=== PATIENT | female | born 1965 | race Caucasian/White ===

== ENCOUNTER 2023-06-12 16:14 | Outpatient (OUT) | payer OTHER, SELFPAY ==
[2023-06-14 04:07] LABS: FSH 54.4 mIU/mL (.); Luteinizing Hormone(LH) 32.4 mIU/mL (.)
== END 2023-06-12 16:15 | disposition home or self-care (01) ==
PROVIDERS: PCP Family Medicine
DX: N95.1 Menopausal and female climacteric states (principal)
CPT/HCPCS: 36415; 83001; 83002

== ENCOUNTER 2024-03-12 07:10 | Outpatient (OUT) | payer OTHER, SELFPAY ==
--- OUTSIDE RECORDS SUMMARY | 2024-03-12 07:15 | XMS_ITS | CCD ---
Author Organization [facility] Care Team Providers Care Cryogenics Engineer Name Role Phone MD Arsenio Baxter Primary Care Provider KIARA De Los Santos Attending Provider MD Chu Wallis Attending Provider [phone] MD Arsenio Baxter Primary Care Provider MD Chu Wallis Attending Provider Chu Wallis Admitting Unavailable Bimal, Chu Attending Unavailable Arsenio Baxter Primary Care Unavailable Surfield, Chu Admitting Unavailable Surfield, Chu Attending Unavailable Arsenio Baxter Primary Care Unavailable Surfield, Chu Admitting Unavailable Surfield, Chu Attending Unavailable Arsenio Baxter Primary Care Unavailable Surfield, Chu Attending Unavailable Arsenio Baxter Primary Care Unavailable Surfield, Chu Admitting Unavailable Surfield, Chu Attending Unavailable Arsenio Baxter Primary Care Unavailable Surfield, Chu Admitting Unavailable Surfield, Chu Admitting Unavailable Surfnatali, Chu Attending Unavailable Arsenio Baxter Primary Care Unavailable Arsenio Baxter Unavailable Unavailable Unavailable DR SHANKAR OBRIEN Admitting Unavailable MICAH, DR CHAPARRO Attending Unavailable HEMEYER ., DR RON Primary Care Unavailable MARY, DR DAVID Jolley Consulting Unavailable KRISTYN MARTÍNEZ Consulting Unavailable HEMEYER ., DR RON Admitting Unavailable HEMEYER ., DR RON Attending Unavailable HEMEYER ., DR RON Primary Care Unavailable HEMEYER ., DR RON Consulting Unavailable FOWLER, DR CARIDAD Stanford Admitting Unavailable FOWLER, DR CARIDAD Stanford Attending Unavailable HEMEYER ., DR RON Primary Care Unavailable FOWLER, DR CARIDAD Stanford Consulting Unavailable Fowler, Dr. Caridad Díaz Attending Leonela vailable Hemeyer, Dr. Arsenio Corea Primary Care Unava ilable Fowler, Dr. Caridad Díaz Attending Leonela vailable Hemeyer, Dr. Arsenio Corea Primary Care Unava ilable Hemeyer, Dr. Arsenio Corea Primary Care Unava ilable Fowler, Dr. Caridad Díaz Attending Leonela vailable Fowler, Dr. Caridad Díaz Referring Leonela vailable Hemeyer, Dr. Arsenio Corea Primary Care Unava ilable Fowler, Dr. Caridad Díaz Attending Leonela vailable Fowler, Dr. Caridad Díaz Referring Leonela vailable Micah, Shankar Rodriguez Attending Unavailable Micah, Shankar Rodriguez Admitting Unavailable HEMEYER, ARSENIO Tian Attending Unavailable LACONISELISE Attending Unavailable PETITTIMONIKA Attending Unavailable SarminiAurelia Attending Unavaila ble Sarmini, Aurelia Gonzales Admitting Unavaila ble Sarmini, Aurelia Gonzales Attending Unavaila ble Sarmini, Aurelia Gonzales Referring Unavaila ble Sarmini, Aurelia Gonzales Attending Unavaila ble Allergies Allergy Classification Reported Allergen(s) Allergy Type Date of Onset Reaction(s) Facility (4 sources) Sulfonamides (Antibiotic); Translations: [Sulfa (Sulfonamide Antibiotics)] Propensity to adverse reactions 2 Itching [facility] (5 sources) Sulfonamides (Antibiotic); Translations: [Sulfa Drugs] Allergy to drug (finding) [facility] Repository Medications Current Medications Medication Drug Class(es) Dates Sig (Normalized) Sig (Original) acetaminophen 325 mg / HYDROcodone bitartrate 5 mg oral tablet (4 sources) Opioid Agonist Start: 06-28-2022 take 1 tablet by mouth every six hours Hydrocodone-Aceta minophen Active 1 TAB PO Q6H 30 7 June 28, 2022 Start: 09-28-2021 End: 06-13-2022 take 1 tablet by mouth every six hours Hydrocodone-Acetaminophen Discontinued 1 TAB PO Q6H 40 7 September 28, 2021 June 13, 2022 9:52am DULoxetine 20 mg delayed release oral capsule (6 sources) Serotonin and Norepinephrine Reuptake Inhibitor Start: 02-08-2021 take 1 capsule by mouth once daily in the morning Duloxetine (Cymbalta) 20 mg capsule,delayed release(DR/EC) Active 20 MG PO Every morning February 07, 2021 11:00pm hydrOXYzine hydrochloride 25 mg oral tablet (1 source) Antihistamine Start: 06-28-2022 take 25 mg by mouth once daily Hydroxyzine Hcl Active 25 MG PO Daily June 28, 2022 12:00am Multivitamin preparation (3 sources) Start: 02-08-2021 take 1 tablet by mouth once daily before dinner Multivitamin Active 1 TAB PO once daily before dinner February 08, 2021 10:52am Start: 02-08-2021 take 1 tablet by evan th once daily before dinner Multivitamin Active 1 TAB PO once daily before dinner February 07, 2021 11:00pm Completed/Discontinued Medications Medication Drug Class(es) Dates Sig (Normalized) Sig (Original) medroxyPROGESTERone acetate 5 mg oral tablet (3 sources) Progestin Start: 1 End: 2 take 5 mg by mouth once daily in the morning Medroxyprogesterone Discontinued 5 MG PO Every morning February 07, 2021 11:00pm September 13, 2021 11:45am Norethindrone-Eth Estradiol 1-5 MG-MCG Oral Tablet (1 source) Start: 3 take 1 tablet by mouth once daily Norethindrone-Eth Estradiol 1-5 MG-MCG Oral Tablet TAKE 1 TABLET DAILY. Quantity: 0 Refills: 0 Ordered: 06-Feb-2023 DO Start : 06-Feb-2023 Active valsartan 160 mg oral tablet (3 sources) Angiotensin 2 Receptor Cassidy Start: 3 take 1 tablet by mouth once daily Valsartan 160 MG Oral Tablet TAKE 1 TABLET BY MOUTH EVERY DAY Quantity: 90 Refills: 3 Ordered: 04-Oct-2022 Caridad Fowler MD Start : 04-Oct-2022 Active new start Problems Active Problems Problem Classification Problem Date Documented Date Episodic/Chronic Abdominal pain (4 sources) Pelvic and perineal pain; Translations: [PELVIC AND PERINEAL PAIN] Onset: 10-14-2022 Episodic Cardiac dysrhythmias (4 sources) Palpitations; Translations: [Palpitations] Onset: 10-14-2022 Episodic Essential hypertension (4 sources) Essential hypertension; Translations: [Unspecified essential hypertension] Onset: 10-14-2022 Chronic Heart valve disorders (3 sources) Heart murmur; Translations: [Undiagnosed cardiac murmurs] Onset: 11-29-2022 Episodic Mood disorders (3 sources) Depressive disorder; Translations: [Depressive disorder, not elsewhere classified] Chronic Nutritional deficiencies (4 sources) Vitamin D deficiency; Translations: [Unspecified vitamin D deficiency] Onset: 10-14-2022 Chronic Other lower respiratory disease (3 sources) Dyspnea; Translations: [Other respiratory abnormalities] Episodic Other lower respiratory disease (5 sources) Dyspnea, unspecified; Translations: [DYSPNEA UNSPECIFIED] Onset: 10-07-2022 Episodic Other nutritional; endocrine; and metabolic disorders (3 sources) Overweight in adulthood with body mass index of 25 or more but less than 30; Translations: [Overweight] Episodic Residual codes; unclassified (3 sources) History of thoracic surgery; Translations: [Other specified postprocedural states] 09-28-2021 Episodic Residual codes; unclassified (1 source) Encounter for cosmetic surgery; Translations: [Encounter for cosmetic surgery] Onset: 06-28-2022 Episodic Residual codes; unclassified (1 source) Other specified postprocedural states; Translations: [Other specified postprocedural states] Onset: 06-28-2022 Episodic Unclassified (1 source) Encounter for preprocedural laboratory examination; Translations: [Encounter for preprocedural laboratory examination] Onset: 06-24-2022 Unclassified (1 source) Encounter for preprocedural cardiovascular examination; Translations: [Encounter for preprocedural cardiovascular examination] Onset: 06-13-2022 Unclassified (1 source) Z41.1 - Encounter for cosmetic surgery; Translations: [Z41.1 - Encounter for cosmetic surgery] Onset: 09-28-2021 Unclassified (1 source) Z01.812 - Encounter for preprocedural laboratory examination; Translations: [Z01.812 - Encounter for preprocedural laboratory examination] Onset: 09-24-2021 Unclassified (1 source) Z01.810 - Encounter for preprocedural cardiovascular examination; Translations: [Z01.810 - Encounter for preprocedural cardiovascular examination] Onset: 09-13-2021 Unclassified (3 sources) CONTACT W/AND (SUSP) EXPOS COVID-19; Translations: [CONTACT W/AND (SUSP) EXPOS COVID-19] Onset: 03-29-2022 Unclassified (1 source) COUGH, UNSPECIFIED; Translations: [COUGH, UNSPECIFIED] Onset: 03-29-2022 Past or Other Problems Problem Classification Problem Date Documented Da te Episodic/Chronic Fever of unknown origin (1 source) Fever, unspecified; Translations: [FEVER UNSPECIFIED] Onset: 03-29-2022 Episodic Other circulatory disease (1 source) History of clinical finding in subject; Translations: [Personal history of other diseases of circulatory system] Resolved: 02-06-2023 Episodic Other lower respiratory disease (1 source) Other specified respiratory disorders; Translations: [OTHER SPEC RESPIRATORY DISORDERS] Onset: 03-29-2022 Episodic Other screening for suspected conditions (not mental disorders or infectious disease) (4 sources) Patient encounter status; Translations: [Screening for lipoid disorders] Onset: 10-14-2022 Resolved: 02-06-2023 Episodic Residual codes; unclassified (3 sources) Edema of lower extremity; Translations: [Edema] Resolved: 02-06-2023 Episodic Unclassified (3 sources) Never smoked tobacco; Translations: [Never a smoker] Unclassified (1 source) CONTACT W/AND (SUSP) EXPOS COVID-19; Translations: [CONTACT W/AND (SUSP) EXPOS COVID-19] Onset: 03-28-2022 Results Test Name Value Interpretation Reference Range Facility Ambulatory Visit Summaryon 0 02-21-2024 Ambulatory Visit Summary Ambulatory Visit Summary ANUSHKA PERDOMO :1965 Visit Date:02/21/2024 Ambulatory Visit Instructions Your Diagnosis LLQ pain Blood in stool Your Care Team Attending Physician - Bon SANDRA, Aurelia Gonzales Primary Care Physician - SAHIL SANDRA, ARSENIO Tian This Is Your Medications List peppermint oil (Ibgard 90 mg oral delayed release capsule) Contact prescribing physician if questions or concerns fluoxetine minocycline valsartan (valsartan 160 mg Tab) Procedures Performed section, Colonoscopy. Discharge Vitals Heart Rate (Peripheral) 60 Blood Pressure 117/64 Height 167 cm Height 66 in Weight 73.6 kg Weight 161.92 lb BMI 26.39 Medications What How Much When Instructions New peppermint oil (Ibgard 90 mg oral delayed release capsule) 2 Capsules By Mouth 2 times a day Refills: 3 Pickup at [facility] Unchanged fluoxetine 20 Milligram By Mouth Every day Contact prescribing physician if questions or concerns Unchanged minocycline 50 Milligram By Mouth Every day as needed for Other (see comment) Contact prescribing physician if questions or concerns Unchanged valsartan (valsartan 160 mg Tab) Contact prescribing physician if questions or concerns Pharmacy Information [facility]: [address], [place] [phone] Allergies sulfa drugs (Unknown) Problems Ongoing - Any problem that you are currently receiving treatment for. Blood in stool Depressive disorder Dyspnea Essential hypertension Heart murmur LLQ pain Vitamin D deficiency Historical - Any problem that you are no longer receiving treatment for. Edema of lower extremity Patient Survey You may receive a survey via text or e-mail asking about your office visit. Please share your experience with us by completing your survey. We appreciate your feedback and thank you for choosing us for your care. Normal [facility] Gastroenterology Office/Clin ic Noteon 02-21-2024 Gastroenterology Office/Clinic Note Gastroenterology Office/Clinic Note Chief Complaint LLQ pain and positive heme stool. HPI Staff Patient is a 58 year old female who was referred by Micah for LLQ pain and positive Hemoccult stool. Having LLQ discomfort, bloating and some BRBPR d/t possible hemorrhoids. UA showed 2+ leukoesterase - was given Cipro 500mg BID. Last visit 07/20/17 w/Dr. Orellana - he recommended a 10 year colonoscopy f/u. Denies Fhx colon cancer. Denies blood thinners. Denies GLP-1 agonists. US pelvis 10/14/22: IMPRESSION: 1. Small leiomyomas suspected within uterine myometrium; no suspicious findings. 2. Left ovarian cyst versus hypoechoic mass; a cyst is favored. Consider follow-up imaging in 6 weeks to document resolution. Colonoscopy 07/06/17: Diagnosis: Internal hemorrhoids and a diminutive sigmoid polyp status post removal with the T-Systemo biopsy forceps. Recommendations: Repeat colonoscopy:: In 3 years, Pending pathology results. Pathology: Final Diagnosis (Verified) POLYP, SIGMOID COLON, POLYPECTOMY: HYPERPLASTIC POLYP. History of Present Illness intermittent blood in stool for several months LLQ discomfort resolved, occasional cramps normal BM Review of Systems PHQ Score Initial Depression Screen Score: 0 SCORE Physical Exam Vitals & Measurements HR: 60(Peripheral) BP: 117/64 HT: 66 in HT: 167 cm WT: 73.6 kg WT: 161.92 lb BMI: 26.39 Assessment/Plan 1. LLQ pain (R10.32: Left lower quadrant pain) discomfort, cramping intermittent no specific triggers had pelvic US Suggested peppermint oils/IBgard and kiwi Pain is mild intermittent and does not last long If pain persist or worsens will consider further evaluation including CT and further treatment like Bentyl 2. Blood in stool (K92.1: Melena) will get colonoscopy Likely hemorrhoids related but we need to rule out other etiologies Follow-up No qualifying data available Problem List/Past Medical History Ongoing Blood in stool Depressive disorder Dyspnea Essential hypertension Heart murmur LLQ pain Vitamin D deficiency Historical Edema of lower extremity Procedure/Surgical History section, Colonoscopy. Medications fluoxetine, 20 mg, Oral, Daily minocycline, 50 mg, Oral, Daily, PRN valsartan 160 mg Tab Allergies sulfa drugs (Unknown) Social History Tobacco Never (less than 100 in lifetime) Tobacco Use:. Never Smokeless Tobacco Use:., 02/21/2024 Family History Heart disease: Father. Hyperlipidemia: Mother. Immunizations Vaccine Date Status Comments zoster vaccine, inactivated 08/18/2023 Recorded zoster vaccine, inactivated 05/08/2023 Recorded SARSCoV2 mRNA(adriel-bari- sucros) vac 02/21/2022 Recorded 2024-02-20: TPV50 SARS-CoV-2 (COVID-19) mRNA BNT-162b2 vax 05/21/2021 Recorded 2024-02-20: TPV23 SARS-CoV-2 (COVID-19) mRNA BNT-162b2 vax 09/11/2020 Recorded SARS-CoV-2 (COVID-19) mRNA BNT-162b2 vax 08/21/2020 Recorded diphtheria/pertussis , acel/tetanus adult 04/20/2017 Recorded diphtheria/pertussis , acel/tetanus adult 11/25/2014 Recorded measles/mumps/rubell a virus vaccine 11/25/2014 Recorded Normal [facility] Comment on above: Result Comment: Elec tronically Signed By: Bon SANDRA, Aurelia Gonzales\.ana\Date and Time Signed: 02/21/24 08:34 EDT C Urineon 01-20-2024 Bacteria identified Cx Nom (U) Microbiology PROCEDURE: Urine Culture [R1] SOURCE: U CleanCatch BODY SITE: COLLECTED DATE/TIME: 01/17/2024 12:00 EDT RECEIVED DATE/TIME: 01/18/2024 18:21 EDT START DATE/TIME: 01/18/2024 18:21 EDT FREE TEXT SOURCE: Micah SANDRA, Shankar Obrien MD, Shankar Rodriguez FINAL REPORTS Final Report [] Verified Date/Time: 01/20/2024 09:48 EDT 1,000 cfu/ml Mixed skin contaminants Performing Locations R1: This test was performed at: [facility], [address] [place] [address], [id number] , , Normal [facility] Comment on above: Performed By: #### [id number] #### [facility] [address] [place] [id number] Office Visit (Cardiology)on 02-06-2023 Follow-up visit Diagnoses/Problems Assessed Primary hypertension (401.9) (I10) Overweight with body mass index (BMI) of 25 to 25.9 in adult (278.02,V85.21) (E66.3,Z68.25) Never a smoker Dyspnea (786.09) (R06.00) Orders Overweight with body mass index (BMI) of 25 to 25.9 in adult Healthy Weight Tips; Status:Complete - Retrospective Authorization; Done: [id number] Some eating tips that can help you lose weight.; Status:Complete - Retrospective Authorization; Done: [id number] SocHx: Never a smoker Tobacco Use Screening; Status:Complete; Done: [id number] Patient Instructions Please bring all medicines, vitamins, and herbal supplements with you when you come to the office. Prescriptions will not be filled unless you are compliant with your follow up appointments or have a follow up appointment scheduled as per instruction of your physician. Refills should be requested at the time of your visit. Follow up in 1 year. Same meds Chief Complaint ANUSHKA PERDOMO is being seen for stress echo results. Patient is in the office for follow-up after the initial visit we had several months ago. She had an echocardiogram and treadmill stress test which came back normal. Since she was started on valsartan for hypertension she feels great and all her symptoms have simply gone and she has presently no complaint to report. Her physical examination was normal. Slight overweight is noted. The findings of the echocardiogram and stress test were reviewed with the patient. She presently will keep taken valsartan as raised and follow-up with me in the office in annual basis. Assessment/recommend ations: 1?history of nonspecific fatigue and dyspnea with normal cardiac work-up based on noninvasive testing all of which have resolved since the patient was started on valsartan for hypertension which has been well-tolerated with excellent results. 2?hypertension, currently in excellent control on valsartan which has been well-tolerated 3?history of depression and anxiety on Cymbalta followed by PCP. 4?minimal overweight, the patient wishes to lose more weight with diet and exercise and target a weight 150 pounds. Surgical History Problems History of section Past Medical History Problems History of Fluid retention in legs (782.3) (R60.0) History of cardiac murmur (V12.59) (Z86.79) Resolved Date: 06 Feb 2023 History of Lipid screening (V77.91) (Z13.220) Current Meds Medication NameInstruction DULoxetine HCl - 20 MG Oral Capsule Delayed Release ParticlesTAKE 1 CAPSULE Daily Norethindrone-Eth Estradiol 1-5 MG-MCG Oral TabletTAKE 1 TABLET DAILY. Valsartan 160 MG Oral TabletTAKE 1 TABLET BY MOUTH EVERY DAY Patient did not bring medication list or bottles. Updated verbally with patient Allergies Medication Sulfa Drugs Recorded By: Servando Wagoner; 10/04/2022 9:28:32 AM Social History Problems Caffeine use (V49.89) (Z78.9) Never a smoker No illicit drug use Social alcohol use (V49.89) (Z78.9) Review of Systems Constitutional: not feeling tired. Cardiovascular: no intermittent leg claudication and as noted in HPI. Respiratory: no cough and no shortness of breath. Gastrointestinal: no change in bowel habits and no blood in stools. Integumentary: no skin rashes. Neurological: no seizures and no frequent falls. All other systems have been reviewed and are negative for complaint. Vitals Vital Signs Recorded: [id number] 01:13PM Heart Rate84, L Radial [id number], LUE, Sitting Kqozntjbe85, LUE, Sitting Height5 ft 6 in Dprzrj558 lb BMI Cribpqdshp62.99 kg/m2 BSA Calculated1.82 Tobacco Useb) No Falls Screening (Age 18+)a) No falls within the last year Physical Exam Constitutional: alert and in no acute distress. Neck: neck is supple, symmetric, trachea midline, no masses and no thyromegaly . Pulmonary: no increased work of breathing or signs of respiratory distress and lungs clear to auscultation. Cardiovascular: carotid pulses 2+ bilaterally with no bruit , JVP was normal, no thrills , regular rhythm, normal S1 and S2, no murmurs , pedal pulses 2+ bilaterally and no edema . Abdomen: abdomen non-tender, no masses and no hepatomegaly . Skin: skin warm and dry, normal skin turgor . Psychiatric judgment and insight is normal and oriented to person, place and time . Signatures Electronically signed by : Caridad Fowler MD; Feb 06 2023 2:15PM EST (Author) Normal [facility] Tobacco Screening.on 023 Fall risk assessment a) No falls within the last year [facility] 250 DO Work Phone: Tobacco use status [facility] b) No [facility] 250 DO Work Phone: Echocardiogramon 11-29-[address], [address] [place] [address] TRANSTHORACIC ECHOCARDIOGRAM REPORT Patient Name: ANUSHKA Jones Physician: [id number] Caridad Fowler MD, [facility] Study Date: 11/29/2022 Referring CARIDAD FOWLER Physician: MRN/PID: [id number] PCP: Arsenio Baxter Accession/Order#: [id number] Department [facility] Location: Date of : 1965 Fellow: Gender: F Nurse: Admit Date: Ed Transporter: Patricia Delgado RDCS, RVT Height: 167.64 cm CC Report to: Weight: 73.03 kg Study Type: Echocardiogram BSA: 1.82 m2 Blood Pressure: 132 /84 mmHg Diagnosis/ICD: R06.00-Dyspnea, unspecified; R01.1-Cardiac murmur, unspecified Indication: Edema, HTN, Palpitations, Overweight Procedure/CPT: Echo Complete w Full [id number] Study Detail: The following Echo studies were performed: 2D, M-Mode, Doppler and color flow. PHYSICIAN INTERPRETATION: Left Ventricle: Left ventricular systolic function is normal, with an estimated ejection fraction of 60-65%. There are no regional wall motion abnormalities. The left ventricular cavity size is normal. Spectral Doppler shows a normal pattern of left ventricular diastolic filling. Left Atrium: The left atrium is normal in size. Right Ventricle: The right ventricle is normal in size. There is normal right ventricular global systolic function. Right Atrium: The right atrium is normal in size. Aortic Valve: The aortic valve is trileaflet. There is no evidence of aortic valve regurgitation. The peak instantaneous gradient of the aortic valve is 12.2 mmHg. The mean gradient of the aortic valve is 7.0 mmHg. Mitral Valve: The mitral valve is mildly thickened. There is trace mitral valve regurgitation. Tricuspid Valve: The tricuspid valve is structurally normal. There is trace tricuspid regurgitation. Pulmonic Valve: The pulmonic valve is structurally normal. There is no indication of pulmonic valve regurgitation. Pericardium: There is no pericardial effusion noted. Aorta: The aortic root is normal. Systemic Veins: The inferior vena cava appears to be of normal size. In comparison to the previous echocardiogram(s): No previous studies are available for comparison. CONCLUSIONS: 1. Left ventricular systolic function is normal with a 60-65% estimated ejection fraction. 2. No previous studies are available for comparison. QUANTITATIVE DATA SUMMARY: 2D MEASUREMENTS: Normal Ranges: Ao Root d: 3.30 cm (2.0-3.7cm) LAs: 3.90 cm (2.7-4.0cm) RVIDd: 2.60 cm (0.9-3.6cm) IVSd: 0.90 cm (0.6-1.1cm) LVPWd: 0.90 cm (0.6-1.1cm) LVIDd: 4.80 cm (3.9-5.9cm) LVIDs: 3.50 cm LV Mass Index: 81.0 g/m2 LV % FS 27.1 % LV SYSTOLIC FUNCTION BY 2D PLANIMETRY (MOD): Normal Ranges: EF-A4C View: 63.5 % (>=55%) LV DIASTOLIC FUNCTION: Normal Ranges: MV Peak E: 0.98 m/s (0.7-1.2 m/s) MV Peak A: 0.84 m/s (0.42-0.7 m/s) E/A Ratio: 1.17 (1.0-2.2) MV lateral e' 0.11 m/s MV medial e' 0.08 m/s E/e' Ratio: 8.90 (<8.0) MITRAL VALVE: Normal Ranges: MV Vmax: 1.10 m/s (<=1.3m/s) MV peak P.8 mmHg (<5mmHg) MV mean P.0 mmHg (<48mmHg) MITRAL INSUFFICIENCY: Normal Ranges: MR Vmax: 404.00 cm/s dP/dt: 1298 mmHg/s (>1200mmHg/sec) AORTIC VALVE: Normal Ranges: AoV Vmax: 1.75 m/s (<=1.7m/s) AoV Peak P.2 mmHg (<20mmHg) AoV Mean P.0 mmHg (1.7-11.5mmHg) LVOT Max Ej: 0.82 m/s (<=1.1m/s) AoV VTI: 41.20 cm (18-25cm) LVOT VTI: 18.50 cm LVOT Diameter: 1.80 cm (1.8-2.4cm) AoV Area, VTI: 1.14 cm2 (2.5-5.5cm2) AoV Area,Vmax: 1.19 cm2 (2.5-4.5cm2) AoV Dimensionless Index: 0.45 TRICUSPID VALVE/RVSP: Normal Ranges: Peak TR Velocity: 2.65 m/s RV Syst Pressure: 31.1 mmHg (< 30mmHg) PULMONIC VALVE: Normal Ranges: PV Max Je: 1.1 m/s (0.6-0.9m/s) PV Max P.8 mmHg [id number] Caridad Fowler MD, [facility] Electronically signed on 12/01/2022 at 9:15:41 AM Final Normal [facility] Cardiac Stress Teston 2022 Cardiac Stress Test [address], [address], [place] [address] Exercise Stress Test Patient Name: ANUSHKA Ordering Physician: [id number] Caridad Fowler MD [facility] Study Date: 10/28/2022 Reading Physician: Pauline Fowler MD, [facility] MRN/PID: [id number] Supervising [id number] Goldie Waldron Physician: Accession/Order#: [id number] Referring Physician: CARIDAD FOWLER Date of : 1965 PCP: Gender: F Fellow: Height: 167.64 cm Nurse: Mayra Arechiga RN Weight: 73.03 kg Ed Transporter: N/A BSA: 1.82 m2 Technologist: BMI: 25.99 kg/m2 Additional Staff: Age: 57 years cc report to: Patient Location: cc report to: [id number] Caridad Fowler MD, [facility] Study Type: Cardiac Stress Test Diagnosis/ICD: R01.1-Cardiac murmur, unspecified; R06.00-Dyspnea, unspecified Indication: Heart Murmur and Dyspnea Procedure/CPT: Stress Test Supervision-[id number] Falls Risk: Low: Patient has low risk for sustaining a fall; environmental safety interventions in place. Study Details: Correct procedure and correct patient verified verbally. Patient Performance: The patient exercised to stage on a Severino protocol for 7 minutes and 15 seconds, achieving 8.9 METS. The peak heart rate achieved was 142 bpm, which was 87 % of the age predicted target heart rate of 163 bpm. The resting blood pressure was 110/64 mmHg with a heart rate of 64 bpm. The standing blood pressure was 100/60 mmHg with a heart rate of 65 bpm. The patient developed dyspnea during the stress exam. The blood pressure response was normal. The test was terminated due to: dyspnea. Double Product (HR x BP): 227. Baseline ECG: Resting ECG showed normal sinus rhythm. Stress Stage Data: + +- --+------+-------+ HR Sys BP Avery BP + +- --+------+-------+ Baseline Resting 64 110 64 + +- --+------+-------+ Baseline Standing 65 100 60 + +- --+------+-------+ Stage I 111 120 64 + +- --+------+-------+ Stage II 120 140 60 + +- --+------+-------+ Stage III 144 160 80 + +- --+------+-------+ + +---+-- ----+-------+ HR Sys BP Avery BP + +---+-- ----+-------+ Recovery I 138 120 60 + +---+-- ----+-------+ Recovery II 130 156 64 + +---+-- ----+-------+ Recovery III 88 160 70 + +---+-- ----+-------+ Recovery IV 80 130 74 + +---+-- ----+-------+ Summary: 1. 1_normal graded exercise tolerance test after completing 7 minutes and 15 seconds on a Severino protocol and achieving 87% of predicted maximal heart rate and workload of 8.9 METS. 2_no chest pain, ischemic EKG changes or cardiac arrhythmias induced by exercise 3_good exercise tolerance for age with appropriate hemodynamic response to exercise and normal heart rate recovery and achievement of Foote treadmill score of 7+ which is favorable. [id number] Caridad Fowler MD, [facility] Electronically signed on 10/31/2022 at 6:20:56 PM Final Normal [facility] Cardiac Stress Test MP-No rth [place] 250 DO Work Phone: FSHon 10-15-2022 FSH 51.4 mIU/mL Normal [facility] Comment on above: Result Comment: Adul t Female: Follicular phase 3.5 - 12.5 Ovulation phase 4.7 - 21.5 Luteal phase 1.7 - 7.7 Postmenopausal 25.8 - 134.8 Performed By: #### L [facility] #### [facility] [address] [place] [address] Dr. Jordan Gan LUTEINIZING HORMONE (LH)on 0 10-15-2022 LH 23.4 mIU/mL Normal [facility] Comment on above: Result Comment: Adul t Female: Follicular phase 2.4 - 12.6 Ovulation phase 14.0 - 95.6 Luteal phase 1.0 - 11.4 Postmenopausal 7.7 - 58.5 Performed By: #### L [facility] #### [facility] [address] [place] [address] Dr. Jordan Gan US PELVIS AND TRANSVAGon US PELVIS AND TRANSVAG EXAMINATION: US PELVIS AND TRANSVAG HISTORY: Pelvic and perineal pain COMPARISON: No relevant comparison available. TECHNIQUE: Transabdominal and transvaginal sonographic examination. FINDINGS: UTERUS: 2 hypoechoic areas within myometrium, 2.5 cm and 1.7 cm in diameter; both favoring leiomyomas. Uterus size: 8.8 x 5.8 x 4.2 cm ENDOMETRIUM: Normal homogeneous appearance. Endometrial thickness: 5 mm RIGHT OVARY: Normal size and appearance. Duplex Doppler demonstrates normal waveform and flow; resistive index 0.5. Ovary size: 2.9 x 2.4 x 2.5 cm LEFT OVARY: 2.0 cm hypoechoic areas suspected to represent a cyst. Blood flow present within ovary on color Doppler. Ovary size: 3.4 x 2.6 x 1.5 cm CUL-DE-SAC: Unremarkable. No significant free fluid. BLADDER: Unremarkable. OTHER: None. IMPRESSION: 1. Small leiomyomas suspected within uterine myometrium; no suspicious findings. 2. Left ovarian cyst versus hypoechoic mass; a cyst is favored. Consider follow-up imaging in 6 weeks to document resolution. Electronically authenticated by: DAVID HERNANDEZ Date: 2022-10-14 11:55 Normal [facility] CBC AUTO DIFFon 10-07-2022 BASO # 0.1 103/ul Normal 0.0-0.1 [facility] Comment on above: Performed By: #### C BC #### [facility] [address] [address] [address] Jordan Gan Basophils/100 WBC (Bld) 0.7 % Normal 0.2-2.0 [facility] Comment on above: Performed By: #### C BC #### [facility] [address] [address] [address] Jordan Gan EO # 0.2 103/ul Normal 0.0-0.7 [facility] Comment on above: Performed By: #### C BC #### [facility] [address] [address] [address] Jordan Gan Eosinophils/100 WBC (Bld) 2.9 % Normal 0.9-7.0 [facility] Comment on above: Performed By: #### C BC #### [facility] [address] [address] [address] Jordan Gan Erythrocyte distribution width (RBC) [Ratio] 13.2 % Normal 11.0-15.0 [facility] Comment on above: Performed By: #### C BC #### [facility] [address] [address] [address] Jordan Gan Hematocrit (Bld) [Volume fraction] 41.1 % Normal 36.0-48.0 [facility] Comment on above: Performed By: #### C BC #### [facility] [address] [address] [address] Jordan Gan Hemoglobin (Bld) [Mass/Vol] 13.7 g/dL Normal 12.0-16.0 [facility] Comment on above: Performed By: #### C BC #### [facility] [address] [address] [address] Jordan Gan IG # 0.01 10e3/ul Normal 0.00-0.03 [facility] Comment on above: Performed By: #### C BC #### [facility] [address] [place] [address] Dr. Jordan Gan IG % 0.1 % Normal 0.0-0.5 [facility] Comment on above: Performed By: #### C BC #### [facility] [address] [place] [address] Dr. Jordan Gan LYMPH # 1.9 103/ul Normal 1.2-3.8 [facility] Comment on above: Performed By: #### C BC #### [facility] [address] [place] [address] Dr. Jordan Gan Lymphocytes/100 WBC (Bld) 27.6 % Normal 20.5-60.0 [facility] Comment on above: Performed By: #### C BC #### [facility] [address] [place] [address] Dr. Jordan Gan MANUAL DIFF REQ NO Normal [facility] Comment on above: Performed By: #### C BC #### [facility] [address] [place] [address] Dr. Jordan Gan MCH (RBC) [Entitic mass] 29.8 pg Normal 26.7-34.0 [facility] Comment on above: Performed By: #### C BC #### [facility] [address] [place] [address] Dr. Jordan Gan MCHC (RBC) [Mass/Vol] 33.3 g/dL Normal 29.9-35.2 [facility] Comment on above: Performed By: #### C BC #### [facility] [address] [address] [address] Jordan Gan MCV (RBC) [Entitic vol] 89.5 fL Normal 81.0-99.0 [facility] Comment on above: Performed By: #### C BC #### [facility] [address] [address] [address] Jordan Gan MONO # 0.5 103/ul Normal 0.3-0.8 [facility] Comment on above: Performed By: #### C BC #### [facility] [address] [address] [address] Jordan Gan Monocytes/100 WBC (Bld) 7.6 % Normal 1.7-12.0 [facility] Comment on above: Performed By: #### C BC #### [facility] [address] [place] [address] Dr. Jordan Gan NEUT # 4.3 103/ul Normal 1.4-6.5 [facility] Comment on above: Performed By: #### C BC #### [facility] [address] [place] [address] Dr. Jordan Gan Neutrophils/100 WBC (Bld) 61.1 % Normal 43.0-75.0 [facility] Comment on above: Performed By: #### C BC #### [facility] [address] [place] [address] Dr. Jordan Gan Platelet mean volume (Bld) [Entitic vol] 9.4 fL Critically low 9.5-13.5 [facility] Comment on above: Performed By: #### C BC #### [facility] [address] [place] [address] Dr. Jordan Gan PLT 446 103/ul Normal 150-450 [facility] Comment on above: Performed By: #### C BC #### [facility] [address] [place] [address] Dr. Jordan Gan RBC 4.59 106/ul Normal 4.20-5.40 [facility] Comment on above: Performed By: #### C BC #### [facility] [address] [address] [address] Jordan Gan WBC 7.0 103/ul Normal 4.0-11.0 [facility] Comment on above: Performed By: #### C BC #### [facility] [address] [place] [address] Dr. Jordan Gan LIPID PROFILEon 10-07-2022 CHOL-HDL RATIO NORM SEE BELOW Normal [facility] Comment on above: Result Comment: 3.3 - 4.4 LOW RISK 4.4 - 7.1 AVERAGE RISK 7.1 - 11.0 MODERATE RISK >11.0 HIGH RISK Performed By: #### A LT, AST, LIPID, TSH, BMP #### [facility] [address] [place] [address] Dr. Jordan Gan Cholesterol [Mass/Vol] 251 mg/dL Critically high <=200 [facility] Comment on above: Performed By: #### A LT, AST, LIPID, TSH, BMP #### [facility] [address] [place] [address] Dr. Jordan Gan Cholesterol in HDL [Mass/Vol] 109 mg/dL Critically high 40-60 [facility] Comment on above: Performed By: #### A LT, AST, LIPID, TSH, BMP #### [facility] [address] [place] [address] Dr. Jordan Gan Cholesterol in LDL [Mass/Vol] 127.4 mg/dL Normal [facility] Comment on above: Performed By: #### A LT, AST, LIPID, TSH, BMP #### [facility] [address] [address] [address] Jordan Gan Cholesterol.total/Chol esterol in HDL [Mass ratio] 2.3 {ratio} Normal [facility] Comment on above: Performed By: #### A LT, AST, LIPID, TSH, BMP #### [facility] [address] [place] [address] Dr. Jordan Gan HDL NORMAL > or = 60 mg/dl - LOW CARDIOVASCULAR RISK <40 mg/dl - HIGH CARDIOVASCULAR RISK Normal [facility] Comment on above: Performed By: #### A LT, AST, LIPID, TSH, BMP #### [facility] [address] [address] [address] Jordan Gan LDL CALC NORMAL SEE BELOW Normal [facility] Comment on above: Result Comment: <100 mg/dl OPTIMAL 100 - 129 mg/dl NEAR OR ABOVE OPTIMAL 130 - 159 mg/dl BORDERLINE HIGH 160 - 189 mg/dl HIGH >190 mg/dl VERY HIGH Performed By: #### A LT, AST, LIPID, TSH, BMP #### [facility] [address] [address] [address] Jordan Gan Triglyceride [Mass/Vol] 73 mg/dL Normal <=150 [facility] Comment on above: Performed By: #### A LT, AST, LIPID, TSH, BMP #### [facility] [address] [address] [address] Jordan Gan VLDL CALC 14.6 mg/dL Normal [facility] Comment on above: Performed By: #### A LT, AST, LIPID, TSH, BMP #### [facility] [address] [address] [address] Jordan Gan PROF CHEM 8 (BAS METB)on Anion gap [Moles/Vol] 10.6 mmol/L Normal [facility] Comment on above: Performed By: #### A LT, AST, LIPID, TSH, BMP #### [facility] [address] [address] [address] Jordan Gan Calcium [Mass/Vol] 9.4 mg/dL Normal 8.5-10.1 [facility] Comment on above: Performed By: #### A LT, AST, LIPID, TSH, BMP #### [facility] [address] [address] [address] Jordan Gan Chloride [Moles/Vol] 102 mmol/L Normal 98-107 [facility] Comment on above: Performed By: #### A LT, AST, LIPID, TSH, BMP #### [facility] [address] [address] [address] Jordan Gan CO2 [Moles/Vol] 30.8 mmol/L Normal 21.0-32.0 [facility] Comment on above: Performed By: #### A LT, AST, LIPID, TSH, BMP #### [facility] [address] [place] [address] Dr. Jordan Gan Creatinine [Mass/Vol] 0.60 mg/dL Normal 0.55-1.02 [facility] Comment on above: Performed By: #### A LT, AST, LIPID, TSH, BMP #### [facility] [address] [place] [address] Dr. Jordan Gan EGFR-AF NEW ZEALANDER >60 Normal >=60 [facility] Comment on above: Performed By: #### A LT, AST, LIPID, TSH, BMP #### [facility] [address] [place] [address] Dr. Jordan Gan EGFR-NON AF NEW ZEALANDER >60 Normal >=60 [facility] Comment on above: Performed By: #### A LT, AST, LIPID, TSH, BMP #### [facility] [address] [place] [address] Dr. Jordan Gan Glucose [Mass/Vol] 95 mg/dL Normal 74-106 [facility] Comment on above: Performed By: #### A LT, AST, LIPID, TSH, BMP #### [facility] [address] [place] [address] Dr. Jordan Gan Potassium [Moles/Vol] 4.4 mmol/L Normal 3.5-5.1 [facility] Comment on above: Performed By: #### A LT, AST, LIPID, TSH, BMP #### [facility] [address] [place] [address] Dr. Jordan Gan Sodium [Moles/Vol] 139 mmol/L Normal 136-145 [facility] Comment on above: Performed By: #### A LT, AST, LIPID, TSH, BMP #### [facility] [address] [place] [address] Dr. Jordan Gan Urea nitrogen [Mass/Vol] 13.0 mg/dL Normal 7.0-18.0 [facility] Comment on above: Performed By: #### A LT, AST, LIPID, TSH, BMP #### [facility] [address] [place] [address] Dr. Jordan Gan Urea nitrogen/Creatinine [Mass ratio] 21.7 mg/mg Normal [facility] Comment on above: Performed By: #### A LT, AST, LIPID, TSH, BMP #### [facility] [address] [place] [address] Dr. Jordan Gan SGOTon 10-07-2022 AST [Catalytic activity/Vol] 17 U/L Normal 15-37 [facility] Comment on above: Performed By: #### A LT, AST, LIPID, TSH, BMP #### [facility] [address] [address] [address] Jordan Gan SGPTon 10-07-2022 ALT [Catalytic activity/Vol] 34 U/L Normal 14-59 [facility] Comment on above: Performed By: #### A LT, AST, LIPID, TSH, BMP #### [facility] [address] [place] [address] Dr. Jordan Gan TSHon 10-07-2022 TSH 1.554 uIU/mL Normal 0.358-3.740 [facility] Comment on above: Performed By: #### A LT, AST, LIPID, TSH, BMP #### [facility] [address] [place] [address] Dr. Jordan Gan VITAMIN D 25 OHon 10-07-2022 VIT D 25-OH 38.1 ng/mL Normal [facility] Comment on above: Performed By: #### A LT, AST, LIPID, TSH, BMP #### [facility] [address] [place] [address] Dr. Jordan Gan VIT D RANGES SEE BELOW Normal [facility] Comment on above: Result Comment: <20 ng/mL Vit D deficient 20 - <30 ng/mL Vit D insufficient 30 - 100 ng/mL Vit D sufficient >100 ng/mL Potential Toxicity Performed By: #### A LT, AST, LIPID, TSH, BMP #### [facility] [address] [place] [address] Dr. Jordan Gan Office Visit (Cardiology)on 10-04-2022 Follow-up visit Diagnoses/Problems Assessed Dyspnea (786.09) (R06.00) Fluid retention in legs (782.3) (R60.0) Overweight with body mass index (BMI) of 25 to 25.9 in adult (278.02,V85.21) (E66.3,Z68.25) Primary hypertension (401.9) (I10) Depression (311) (F32.A) Palpitation (785.1) (R00.2) Never a smoker Cardiac murmur (785.2) (R01.1) Vitamin D deficiency (268.9) (E55.9) Lipid screening (V77.91) (Z13.220) Orders Cardiac murmur, Dyspnea Cardiac Stress Test; Status:Hold For - Scheduling,Retrospec tive Authorization; Requested for:04Oct2022; Echocardiogram; Status:Hold For - Scheduling,Retrospec tive Authorization; Requested for:04Oct2022; Dyspnea IO EKG Electrocardiogram- 12 Lead; Status:Complete; Done: 04Oct2022 Dyspnea, Lipid screening, Palpitation, Primary hypertension ALT - Alanine Aminotransferase, Serum; Status:Active - Retrospective Authorization; Requested for:04Oct2022; AST; Status:Active - Retrospective Authorization; Requested for:04Oct2022; Basic Metabolic Panel; Status:Active - Retrospective Authorization; Requested for:04Oct2022; Complete Blood Count; Status:Active - Retrospective Authorization; Requested for:04Oct2022; Lipid Panel; Status:Active - Retrospective Authorization; Requested for:04Oct2022; TSH - Thyroid Stimulating Hormone, Serum; Status:Active - Retrospective Authorization; Requested for:04Oct2022; Overweight with body mass index (BMI) of 25 to 25.9 in adult Healthy Weight Tips; Status:Complete - Retrospective Authorization; Done: 04Oct2022 Some eating tips that can help you lose weight.; Status:Complete - Retrospective Authorization; Done: 04Oct2022 Primary hypertension Start: Valsartan 160 MG Oral Tablet; TAKE 1 TABLET BY MOUTH EVERY DAY SocHx: Never a smoker Tobacco Use Screening; Status:Complete; Done: 04Oct2022 Vitamin D deficiency Vitamin D 25-Hydroxy; Status:Active - Retrospective Authorization; Requested for:04Oct2022; Patient Instructions Please bring all medicines, vitamins, and herbal supplements with you when you come to the office. Prescriptions will not be filled unless you are compliant with your follow up appointments or have a follow up appointment scheduled as per instruction of your physician. Refills should be requested at the time of your visit. labs, Echo, and treadmil stress test Follow-up after testing completed Chief Complaint ANUSHKA PERDOMO is being seen for a consultation for heart murmur, fluid retention, sob. 57-year-old white female who was self-referred for evaluation of symptoms of generalized fatigue and exercise intolerance with dyspnea on exertion and palpitations. 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 She tells me that she has always been very active and has been a runner since young age. Recently she has been under significant stress at work with concern about her safety and she is thinking about retiring. On she was told by a healthcare provider recently that she had a cardiac murmur which was dismissed by her PCP. Patient has no syncope. She has no orthopnea PND or lower extremity edema even though she thinks she has edema. Her EKG revealed normal sinus rhythm and her physical examination was remarkable for hypertension. She is borderline overweight. She has no family history of premature CAD, she is non-smoker, she drinks socially. Assessment/recommend ations: 1?Constellation of nonspecific symptoms of fatigue and exercise intolerance with a perception of weight gain and edema and inability to exercise. The only findings we have was hypertension. I advised the patient to assess the murmur with an echocardiogram and assess her functional capacity by doing a treadmill stress test. We will treat hypertension. 2?hypertension untreated. Valsartan 160 mg daily was added and will be followed closely. 3?history of depression and anxiety on Cymbalta followed by PCP. 4?minimal overweight, the patient wishes to lose more weight with diet and exercise and target a weight 150 pounds. Surgical History Problems History of section Current Meds Medication NameInstruction DULoxetine HCl - 20 MG Oral Capsule Delayed Release ParticlesTAKE 1 CAPSULE Daily Patient did not bring medication list or bottles. Updated verbally with patient Allergies Medication Sulfa Drugs Recorded By: Servando Wagoner; 10/04/2022 9:28:32 AM Social History Problems Caffeine use (V49.89) (Z78.9) Never a smoker No illicit drug use Social alcohol use (V49.89) (Z78.9) Review of Systems Constitutional: not feeling tired. Cardiovascular: no intermittent leg claudication and as noted in HPI. Respiratory: shortness of breath during exertion, but no cough and no shortness of breath. Gastrointestinal: no change in bowel habits and no blood in stools. Integumentary: no skin rashes. Neurological: no seizures and no frequent falls. All other systems have been reviewed and are negative for complaint. Vitals Vital Sig (more content not included)... Normal [employer] PHQ-2 VITALSon 10-04-2022 Adult depression screening assessment No [facility] 250 DO Work Phone: Tobacco Screening.on 023 Tobacco use status [facility] b) No [facility] 250 DO Work Phone: HCG ( test) IA.rapi d Ql (U)Ordered By: Deven Philippe on 06-28-2022 HCG ( test) Ql (U) Negative [facility] HCG,Urineon 06-28-2022 Beta HCG ( test) Ql (U) Negative Normal [facility] Comment on above: Result Comment: PERF ORMED BY: [place] [address] PATHOLOGIST WHEEL POLISHER KRISTI BROWN M.D. Performed By: #### U HCG #### [address] COVID-19 Antigenon 2 COVID-19 Antigen Healthcare Worker?: N Reference Range: Negative Negative results, from patients with symptom onset beyond five days, should be treated as presumptive and confirmation with a molecular assay, if necessary, for patient management, may be performed. Negative results do not rule out COVID-19 and should not be used as the sole basis for treatment or patient management decisions, including infection control decisions. Negative results should be considered in the context of a patient's recent exposures, history and the presence of clinical signs and symptoms consistent with COVID-19. The Erika SARS Antigen DANNI does not differentiate between SARS-CoV and SARS-CoV-2. This test was developed and its performance characteristic determined by [employer] and validated at [facility]. This test has not been FDA cleared or approved. This test has been authorized by FDA under an Emergency Use Authorization (EUA). This test has been validated in accordance with the FDA's Guidance Document (Policy for Diagnostics Testing in Laboratories Certified to Perform High Complexity Testing under CLIA prior to Emergency Use Authorization for Coronavirus Disease-2019 during the Public Health Emergency) issued on October 10, 2019. This test is only authorized for the duration of time the declaration that circumstances exist justifying the authorization of the emergency use of in vitro diagnostic tests for detection of SARS-CoV-2 virus and/or diagnosis of COVID-19 infection under section 564(b)(1) of the Act, 21 U.S.C. 360bbb-3(b)(1), unless the authorization is terminated or revoked sooner. SARS-CoV+SARS-CoV-2 (COVID-19) Ag [Presence] in Respiratory specimen by Rapid immunoassay Negative for SARS Antigen by DANNI PERFORMED BY: [place] [address] PATHOLOGIST WHE[employer] POLISHER KRISTI BROWN M.D. Normal [facility] Comment on above: Performed By: #### C OVID-19 ERIKA, SOFIANEG #### [address] COVID-19 SOFIAOrdered By: Teofilo Wallis on 06-24-2022 SARS-CoV+SARS-CoV-2 (COVID-19) Ag IA.rapid Ql (Resp) Negative Negative [facility] Comment on above: This is a duplicate Erika SARS Antigen (DANNI) result to be used for statistical tracking purpose only. No Panel InformationOrdered By: Chu Wallis on 06-24-2022 SARS Antigen (LFIA) [facility] Erika Ag Negativeon 06-24-20 Erika Ag Negative Negative Normal Negative [facility] Comment on above: Result Comment: This is a duplicate Erika SARS Antigen (DANNI) result to be used for statistical tracking purpose only. PERFORMED BY: [place] [address] PATHOLOGIST WHEEL POLISHER KRISTI BROWN M.D. Performed By: #### C OVID-19 ERIKA, SOFIANEG #### [facility] [address] [id number] [facility] ECG 12 lead ECGon 06-13-2022 ECG 12 lead ECG [facility] [address] [place] [address] [place] [address] Electrocardiograph Report Signed Patient: Anushka Perdomo MR#: [id number] 65 : 1965 Acct:[id number] Age/Sex: 57 / F ADM Date: 06/13/22 Loc: Room: Type: [facility] Attending Dr: Chu Wallis MD Ordering Provider: Chu Wallis MD Date of Service: 06/13/2211/28/913 ECG/ECG 12 lead ECG: PST Copies to: Test Reason : Blood Pressure : / mmHG Vent. Rate : 065 BPM Atrial Rate : 065 BPM P-R Int : 144 ms QRS Dur : 094 ms QT Int : 416 ms P-R-T Axes : 025 070 051 degrees QTc Int : 432 ms Normal sinus rhythm Normal ECG When compared with ECG of 13-SEP-2021 11:23, No significant change was found Confirmed by [place] [facility] ([id number][facility] on 06/15/2022 1:57:01 PM Referred By: BIMAL Electronically Signed By:CARIDAD FOWLER MD [facility] Transcribed By: DONIS Signed By Caridad Fowler MD, FACC 06/15/22 1357 Normal [facility] Covid-19 PCR (CVDTBH)on 03-10 SARS-CoV-2 (COVID-19) RNA CHON+probe Ql (Unsp spec) Not detected Normal NOT DETECTED [facility] Comment on above: Result Comment: This test is not yet approved or cleared by the [place] FDA. When there are no FDA-approved or cleared tests available, and other criteria are met, FDA can make tests available under an emergency access mechanism called an Emergency Use Authorization (EUA). The EUA for this test is supported by the Lasting Machine Operator Bed of Health and Human Service's (HHS's) declaration that circumstances exist to justify the emergency use of in vitro diagnostics for the detection and/or diagnosis of the virus that causes COVID-19. This EUA will remain in effect (meaning this test can be used) for the duration of the COVID-19 declaration justifying emergency of IVDs, unless it is terminated or revoked by FDA (after which the test may no longer be used). When diagnostic testing is negative, the possibility of a false negative should be considered in the context of a patient's recent exposures and the presence of clinical signs and symptoms consistent with SARS-CoV-2. Performed By: #### C VDTB #### [facility] [address] [address] [address] Jordan Gan HCG ( test) Carmen rodriguez Ql (U)Ordered By: Timoteo Delgadillo on 09-28-2021 HCG ( test) Ql (U) Negative [facility] HCG,Urineon 09-28-2021 Beta HCG ( test) Ql (U) Negative Normal [facility] Comment on above: Result Comment: PERF ORMED BY: [place] [address] PATHOLOGIST WHEEL POLISHER KRISTI BROWN M.D. Performed By: #### U HCG #### [address] COVID-19 FRMCon 09-24-2021 SARS-CoV-2 (COVID-19) RNA CHON+probe Ql (Unsp spec) Negative Normal Negative [facility] Comment on above: Order Comment: Healt hcare Worker?: N Result Comment: Testing for SARS-CoV-2 by RT-PCR This test was developed and its performance characteristics determined by [employer]) and validated at the [facility]. This test has not been FDA cleared or approved. This test has been authorized by FDA under an Emergency Use Authorization (EUA). This test has been validated in accordance with the FDA's Guidance Document (Policy for Diagnostics Testing in Laboratories Certified to Perform High Complexity Testing under CLIA prior to Emergency Use Authorization for Coronavirus Disease-2019 during the Public Health Emergency) issued on October 10, 2019. This test is only authorized for the duration of time the declaration that circumstances exist justifying the authorization of the emergency use of in vitro diagnostic tests for detection of SARS-CoV-2 virus and/or diagnosis of COVID-19 infection under section 564(b)(1) of the Act, 21 U.S.C. 360bbb-3(b)(1), unless the authorization is terminated or revoked sooner. PERFORMED BY: [place] [address] PATHOLOGIST WHEEL POLISHER KRISTI BROWN M.D. Performed By: #### C OVID 19 [facility] #### [address] COVID-19 Positive/NegativeOr dered By: Chu Wallis on 09-24-2021 SARS-CoV-2 (COVID-19) N gene CHON+probe Ql (Resp) Negative Negative [facility] Comment on above: Testing for SARS-CoV -2 by RT-PCRThis test was developed and its performance characteristics determined by [employer] ([employer]) and validated at the [facility]. This test has not been FDA cleared or approved. This test has been authorized by FDA under an Emergency Use Authorization (EUA). This test has been validated in accordance with the FDA's Guidance Document (Policy for Diagnostics Testing in Laboratories Certified to Perform High Complexity Testing under CLIA prior to Emergency Use Authorization for Coronavirus Disease-2019 during the Public Health Emergency) issued on October 10, 2019. This test is only authorized for the duration of time the declaration that circumstances exist justifying the authorization of the emergency use of in vitro diagnostic tests for detection of SARS-CoV-2 virus and/or diagnosis of COVID-19 infection under section 564(b)(1) of the Act, 21 U.S.C. 360bbb-3(b)(1), unless the authorization is terminated or revoked sooner. ECG 12 lead ECGon 09-13-2021 ECG 12 lead ECG [facility] [place] [address] [place] [address] Electrocardiograph Report Signed Patient: Anushka Perdomo MR#: [id number] 65 : 1965 Acct:[id number] Age/Sex: 56 / F ADM Date: 09/13/21 [facility]: [facility]: [facility]: Chu Wallis MD Ordering Provider: Chu Wallis MD Date of Service: 09/13/2101/28/1114 ECG/ECG 12 lead ECG: surgery 09/28/21 Copies to: Test Reason : Blood Pressure : / mmHG Vent. Rate : 057 BPM Atrial Rate : 057 BPM P-R Int : 138 ms QRS Dur : 100 ms QT Int : 434 ms P-R-T Axes : 023 060 041 degrees QTc Int : 422 ms Sinus bradycardia Otherwise normal ECG When compared with ECG of 08-FEB-2021 10:38, No significant change was found Confirmed by LUDIVINA BARRIGA DO ([id number]) on 09/13/2021 8:33:01 PM Referred By: BIMAL Electronically Signed By:LUDIVINA BARRIGA DO Transcribed By: DONIS Signed By Ludivina Barriga DO 09/13 [facility] Vital Signs Date Time Vital Sign Value Performing Clinician Facility 02-06-2023 13:13-0400 Body height 167.64 cm Arsenio Baxter Work Phone: [facility] DO Work Phone: 02-06-2023 13:13-0400 Body mass index (BMI) [Ratio] 25.99 kg/m2 Arsenio Baxter Work Phone: [facility] DO Work Phone: 02-06-2023 13:13-0400 Body surface area Derived from formula 1.82 m2 Arsenio Baxter Work Phone: [facility] DO Work Phone: 02-06-2023 13:13-0400 Body weight 73.03 kg Arsenio Baxter Work Phone: [facility] DO Work Phone: 02-06-2023 13:13-0400 Diastolic blood pressure 60 mm[Hg] Arsenio Baxter Work Phone: [facility] DO Work Phone: 02-06-2023 13:13-0400 Heart rate 84 /min Edlenore Moralesyer Work Phone: [facility] DO Work Phone: 02-06-2023 13:13-0400 Systolic blood pressure 122 mm[Hg] Edlenore Moralesyer Work Phone: [facility] DO Work Phone: 10-07-2022 00:00-0400 127.4 1 Edlenore Moralesyer Work Phone: [facility] DO Work Phone: Comment on above: [facility] 10-04-2022 09:34-0400 Diastolic blood pressure 90 mm[Hg] Edlenore Moralesyer Work Phone: [facility] DO Work Phone: 10-04-2022 09:34-0400 Systolic blood pressure 138 mm[Hg] Edlenore Moralesyer Work Phone: [facility] DO Work Phone: 10-04-2022 09:33-0400 Body height 167.64 cm Arsenio Moralesyer Work Phone: [facility] DO Work Phone: 10-04-2022 09:33-0400 Body mass index (BMI) [Ratio] 25.99 kg/m2 Edlenore Moralesyer Work Phone: [facility] DO Work Phone: 10-04-2022 09:33-0400 Body surface area Derived from formula 1.82 m2 Cordelllenore Jaylan Andrewyer Work Phone: [facility] DO Work Phone: 10-04-2022 09:33-0400 Body weight 73.03 kg Edlenore Moralesyer Work Phone: [facility] DO Work Phone: 10-04-2022 09:33-0400 Diastolic blood pressure 90 mm[Hg] Arsenio Tian Sahil Work Phone: [facility] DO Work Phone: 10-04-2022 09:33-0400 Heart rate 65 /min Arsenio Tian Sahil Work Phone: [facility] DO Work Phone: 10-04-2022 09:33-0400 Systolic blood pressure 142 mm[Hg] Arsenio Moralesgarcía Work Phone: [facility] DO Work Phone: 06-28-2022 15:35-0500 Diastolic blood pressure 84 mm[Hg] MD Arsenio Baxter Work Phone: [facility] 06-28-2022 15:35-0500 Heart rate 94 /min MD Arsenio Baxter Work Phone: [facility] 06-28-2022 15:35-0500 Respiratory rate 16 /min MD Arsenio Baxter Work Phone: [facility] 06-28-2022 15:35-0500 SaO2% (BldA) [Mass fraction] 94 % MD Arsenio Baxter Work Phone: [facility] 06-28-2022 15:35-0500 Systolic blood pressure 138 mm[Hg] MD Arsenio Baxter Work Phone: [facility] 06-28-2022 13:48-0500 Body temperature 97 [degF] MD Arsenio Baxter Work Phone: [facility] 06-28-2022 13:48-0500 Inhaled oxygen flow rate 6 L/min MD Arsenio Baxter Work Phone: [facility] 06-28-2022 11:18-0500 Body mass index (BMI) [Ratio] 25.5 kg/m2 MD Arsenio Baxter Work Phone: [facility] 06-28-2022 11:06-0500 Body height 167.64 cm MD Arsenio Baxter Work Phone: [facility] 06-28-2022 11:06-0500 Body weight 71.9 kg MD Arsenio Baxter Work Phone: [facility] 09-28-2021 17:19-0400 Diastolic blood pressure 61 mm[Hg] MD Arsenio Baxter Work Phone: [facility] 09-28-2021 17:19-0400 Heart rate 77 /min MD Arsenio Baxter Work Phone: [facility] 09-28-2021 17:19-0400 Respiratory rate 16 /min MD Arsenio Baxter Work Phone: [facility] 09-28-2021 17:19-0400 SaO2% (BldA) [Mass fraction] 91 % MD Arsenio Baxter Work Phone: [facility] 09-28-2021 17:19-0400 Systolic blood pressure 119 mm[Hg] MD Arsenio Baxter Work Phone: [facility] 09-28-2021 15:58-0400 Inhaled oxygen flow rate 1 L/min MD Arsenio Baxter Work Phone: [facility] 09-28-2021 13:42-0400 Body temperature 97.5 [degF] MD Arsenio Baxter Work Phone: [facility] 09-28-2021 11:04-0400 Body height 167.64 cm MD Arsenio Baxter Work Phone: [facility] 09-28-2021 11:04-0400 Body mass index (BMI) [Ratio] 25.2 kg/m2 MD Arsenio Baxter Work Phone: [facility] 09-28-2021 11: Body weight 71 kg MD Arsenio Baxter Work Phone: [facility] Encounters Encounter Date Encounter Type Care Provider Facility Start: 03-05-2024 End: 03-05-2024 ambulatory Aurelia Talal Sarmini Facility:[facility] [place] Start: 03-05-2024 End: 03-05-2024 ambulatory Moses Talal Sarmini Facility::[id number] Start: 02-27-2024 End: 02-27-2024 ambulatory MONIKA ANDERSEN Not Available Start: 02-21-2024 End: 02-21-2024 ambulatory Moses Talal Destineemini Facility:[facility] Start: 02-08-2024 ambulatory Aurelia Crockett Facili ty:[facility] Start: 01-17-2024 End: 01-17-2024 ambulatory Shankar Obrien Facility:[facility] [place] Start: 01-12-2024 End: 01-12-2024 ambulatory ELISE RODGERS Not Available Start: 09-04-2023 End: 09-04-2023 ambulatory ARSENIO BAXTER Not Available Start: 02-06-[address] Arsenio Baxter Facility: Start: 02-06-2023 Office outpatient vi sit 15 minutes Arsenio Baxter Work Phone: [facility] DO Work Phone: Start: 11-29-[address] Caridad Fowler Facility:[id number] Start: 11-01-2022 Chart Update Arsenio Lunsford er Work Phone: [facility] DO Work Phone: Start: 10-28-[address] Caridad Fowler Facility:[id number] Start: 10-14-2022 End: 10-15-[address] SHANKAR OBRIEN Facility:[facility]1 Start: 10-07-2022 End: 10-08-[address] CARIDAD FOWLER Facility:[facility]1 Start: 10-04-2022 Office outpatient ne w 45 minutes Arsenio Baxter Work Phone: -[facility] DO Work Phone: Start: 10-04-[address] Arsenio Baxter Facility: Start: 06-28-2022 End: 06-28-2022 ambulatory [facility] Facility:[facility] Start: 06-28-2022 End: 06-28-2022 Admission to same day surgery center MD Arsenio Baxter Work Phone: [facility] [place] Start: 06-28-2022 End: 06-28-2022 ambulatory MD Arsenio Baxter Work Phone: [facility] Work Phone: Start: 06-24-2022 End: 06-24-2022 ambulatory [facility] Facility:[facility] Start: 06-24-2022 End: 06-24-2022 Patient encounter procedure MD Arsenio Baxter Work Phone: [facility] Yev-Obh-Ircietgd Testing Start: 06-13-2022 End: 06-13-2022 ambulatory [facility] Facility:[facility] Start: 06-13-2022 End: 06-13-2022 ambulatory MD Arsenio Baxter Work Phone: [facility] Work Phone: Start: 06-13-2022 End: 06-13-2022 Patient encounter procedure MD Arsenio Baxter Work Phone: [facility] Ztv-Dax-Aozolwec Testing Start: 03-28-2022 End: 03-28-[address] ARSENIO BAXTER . Facility:[facility]1 Start: 09-28-2021 End: 09-28-2021 ambulatory Chu [facility] Facility:[facility] Start: 09-28-2021 End: 09-28-2021 Admission to same day surgery center MD Arsenio Baxter Work Phone: [facility] [place] Start: 09-24-2021 End: 09-24-2021 ambulatory [facility] Facility:[facility] Start: 09-24-2021 End: 09-24-2021 Patient encounter procedure MD Arsenio Baxter Work Phone: [facility] Start: 09-13-2021 End: 09-13-2021 ambulatory [facility] Facility:[facility] Start: 09-13-2021 End: 09-13-2021 Patient encounter procedure MD Arsenio Baxter Work Phone: [facility] Start: 08-03-2021 End: 08-03-2021 Patient encounter procedure MD Arsenio Baxter Work Phone: [facility] Procedures Date Procedure Procedure Detail Performing Clinician Start: 06-28-2022 Reconstruction of br east using transverse rectus abdominis myocutaneous flap MD Arsenio Baxter Work Phone: Start: 09-28-2021 Reconstruction of br east using transverse rectus abdominis myocutaneous flap MD Arsenio Baxter Work Phone: Start: 08-03-2021 X-ray of left foot MD Cherry Baxter Work Phone: section Arsenio nevarez Work Phone: SARS Antigen (LFIA) MD Abdifatah Baxter Work Phone: Plan of Treatment Date Care Activity Detail Author Start: 02-06-2024 FUV, Provider: Caridad Fowler, Status: Pen, Time: 8:50 AM FUV, Provider: Caridad Fowler, Status: Pen, Time: 8:50 AM -[facility] DO Work Phone: Start: 01-11-2023 FUV, Provider: Caridad Fowler, Status: Pen, Time: 11:30 AM FUV, Provider: Caridad Fowler, Status: Pen, Time: 11:30 AM [facility] DO Work Phone: Start: 11-29-2022 ECHO, Provider: COLEMAN VETOI ULTRASOUND 01,[id number], Status: Pen, Time: 10:45 AM ECHO, Provider: COLEMAN HHVI ULTRASOUND 01,[id number], Status: Pen, Time: 10:45 AM [facility] DO Work Phone: Start: 10-28-2022 STRESS KING, Provider : COLEMAN [facility]VI NUCLEAR 01,[id number], Status: Pen, Time: 11:00 AM STRESS KING, Provider: CO[facility] NUCLEAR 01,[id number], Status: Pen, Time: 11:00 AM [facility] DO Work Phone: Start: 06-28-2022 [facility] Start: 06-28-2022 [facility] Patient referral [facility] Work Phone: Immunizations Immunization Date Immunization Notes Care Provider Vinod burns 02-21-2022 Comirnaty 30 MCG/0.3 ML Intramuscular Suspension [facility]: 05-21-2021 COVID-19 mRNAAdriana (Pfizer) MD Arsenio Baxter Work Phone: [facility] 09-11-2020 COVID-19 mRNAAdriana (Pfizer) MD Arsenio Baxter Work Phone: [facility] 08-21-2020 COVID-19 mRNAAdriana (Pfizer) MD Arsenio Baxter Work Phone: [facility] 04-20-2017 tetanus toxoid, redu tavares diphtheria toxoid, and acellular pertussis vaccine, adsorbed Arsenio Baxter Work Phone: [facility] DO Work Phone: 11-25-2014 measles, mumps and rubella virus vaccine Arsenio Baxter Work Phone: [facility] 250 DO Work Phone: 11-25-2014 tetanus toxoid, redu tavares diphtheria toxoid, and acellular pertussis vaccine, adsorbed Arsenio Baxter Work Phone: [facility] 250 DO Work Phone: Payers Date Payer Category Payer Self-pay [id number] 2021 Self-pay [id number] 1965 Unknown [id number] 2.16.84 [id number] 1965 Unknown [id number] 2.16.84 0.1.677775.3.579.2.593 1965 Unknown [id number] 2.16.84 0.1.225315.3.579.2.593 1965 Unknown [id number] 2.16.8 40.1.647489.3.579.2.1068 1965 Unknown [id number] 2.16.8 40.1.878879.3.579.2.1068 1965 Unknown [id number] 2.16. 840.1.491285.3.579.2.356 1965 Unknown [id number] 2.16. 840.1.723598.3.579.2.356 1965 Unknown [id number] 2.16.8 40.1.108573.3.579.2.727 1965 Unknown [id number] 2.16.84 0.1.592652.3.579.2.1259 1965 Unknown [id number] 2.16.84 0.1.869234.3.579.2.1259 1965 Unknown [id number] 2.16.84 0.1.391141.3.579.2.1259 1965 Unknown [id number] 2.16.8 40.1.920698.3.579.2.727 1965 Unknown [id number] 2.16.8 40.1.536454.3.579.2.727 1965 Unknown [id number] 2.16.8 40.1.866053.3.579.2.727 1965 Unknown [id number] 2.16.8 40.1.252663.3.579.2.727 1959 Unknown [id number] 1959 Unknown [id number] Unknown [id number] 2.16.8 40.1.337027.3.579.2.531 Unknown [id number] 2.16.8 40.1.158120.3.579.2.531 Unknown [id number] 2.16.8 40.1.145133.3.579.2.531 Unknown [id number] 2.16.8 40.1.068024.3.579.2.531 Unknown [id number] 2.16.8 40.1.432451.3.579.2.531 Unknown [id number] 2.16.8 40.1.158094.3.579.2.531 Unknown Social History Date Type Detail Facility Start: 09-28-2021 End: 06-28-2022 Tobacco smoking status LAIS Never smoked tobacco (finding) [facility] Start: 1965 Sex Assigned At Female F [facility] Caffeine use Caffeine use -[facility] 250 DO Work Phone: Goals Date Patient Goal Desired Activity /State Chief complaint Narrative - Reported Note Date & Type Note Facility Chief complaint Narrative - Reported ANUSHKA PERDOMO is being seen for a consultation for heart murmur, fluid retention, sob.57-year-old white female who was self-referred for evaluation of symptoms of generalized fatigue and exercise intolerance with dyspnea on exertion and palpitations. 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 She tells me that she has always been very active and has been a runner since young age. Recently she has been under significant stress at work with concern about her safety and she is thinking about retiring. On she was told by a healthcare provider recently that she had a cardiac murmur which was dismissed by her PCP. Patient has no syncope. She has no orthopnea PND or lower extremity edema even though she thinks she has edema. Her EKG revealed normal sinus rhythm and her physical examination was remarkable for hypertension. She is borderline overweight. She has no family history of premature CAD, she is non-smoker, she drinks socially.Assessment/recommendati ons:1 Constellation of nonspecific symptoms of fatigue and exercise intolerance with a perception of weight gain and edema and inability to exercise. The only findings we have was hypertension. I advised the patient to assess the murmur with an echocardiogram and assess her functional capacity by doing a treadmill stress test. We will treat hypertension.2 hypertension untreated. Valsartan 160 mg daily was added and will be followed closely.3 history of depression and anxiety on Cymbalta followed by PCP.4 minimal overweight, the patient wishes to lose more weight with diet and exercise and target a weight 150 pounds. -[facility] DO Work Phone: Evaluation note Note Date & Type Note Facility Evaluation note No [facility] Work Phone: Hospital Discharge instructions Note Date & Type Note Facility Hospital Discharge instructions Additional Instructions DISCHARGE INSTRUCTIONS FOR PLASTIC/RECONSTRUCTIVE SURGERY YOUR ACTIVITY MAY INCLUDE -Going up and down stairs slowly. -Walking around the house or outside if the weather is satisfactory. -No driving until you are seen in our office and cleared for driving. -No lifting more than 10 pounds for 4 weeks from the date of surgery. WOUND CARE -NO smoking as it may compromise your wound healing. -Do not remove dressing until your post-operative appointment. -A garment was placed at the time surgery, leave in place until your post-operative appointment. -Keep your incision dry for 48 hours then, you may shower (no tub baths) and allow water to flow over your incision. -It is common to feel pulling or sharp sticking sensations in the area of the incision. PLEASE NOTIFY OUR OFFICE at [phone] if you: -Develop a fever of 101 degrees Fahrenheit, or higher. -Have increasing pain. -See redness or swelling around the incision. MEDICATION -Medications per Medication Reconciliation List. -Over the counter medications such as Acetaminophen and others may be used as directed for pain unless prescription was provided. Do NOT exceed 4 grams of Acetaminophen in a 24 hour period. -DO NOT use ibuprofen or NSAIDs unless directed by physician, as they may increase risk of bleeding. OTHER INSTRUCTIONS -No smoking as this increases post-operative complication rate. FOLLOW UP -Call the office at [phone] for a follow up appointment 1 week. * AFTER HOURS PHONE NUMBER [phone] * [facility] Work Phone: Chief Complaint and Reason for Visit Chief Complaint M48.547 Cosmetic Cosmetic Cosmetic Chief Complaint Cosmetic Chief Complaint Cosmetic Cosmetic Cosmetic Family History No Family History Records Found Relationship Condition Age at Onset Recorded Date/T nahed Not Specified Aortic valve stenosis Unknown father Myocardial infarction Unknown Unknown Family Member Name Dates Details Family history of myocardial infarction: Father(V17.3, Z82.49) Status:Active Heart problem: Mother Status:Active Family history of hyperlipid emia: Mother, Sibling(V18.19, Z83.438) Status:Active Unknown Family Member Name Dates Details Family history of myocardial infarction: Father(V17.3, Z82.49) Status:Active Heart problem: Mother Status:Active Family history of hyperlipid emia: Mother, Sibling(V18.19, Z83.438) Status:Active Unknown Family Member Name Dates Details Family history of myocardial infarction: Father(V17.3, Z82.49) Status:Active Heart problem: Mother Status:Active Family history of hyperlipid emia: Mother, Sibling(V18.19, Z83.438) Status:Active Advance Directives No Advanced Directives Records Found Advance Directive Response Recorded Date/ Time Advance Directives No February 08 10:14am Advance Directive Response Recorded Date/ Time Advance Directives No February 08 9:14am Summary Purpose Chief Complaint * ANUSHKA PERDOMO is being seen for stress echo results. * Patient is in the office for follow-up after the initial visit we had several months ago. She had an echocardiogram and treadmill stress test which came back normal. Since she was started on valsartan for hypertension she feels great and all her symptoms have simply gone and she has presently no complaint to report. Her physical examination was normal. Slight overweight is noted. The findings of the echocardiogram and stress test were reviewed with the patient. She presently will keep taken valsartan as raised and follow-up with me in the office in annual basis. * Assessment/recommendations: * 1 history of nonspecific fatigue and dyspnea with normal cardiac work-up based on noninvasive testing all of which have resolved since the patient was started on valsartan for hypertension which has been well-tolerated with excellent results. * 2 hypertension, currently in excellent control on valsartan which has been well-tolerated * 3 history of depression and anxiety on Cymbalta followed by PCP. * 4 minimal overweight, the patient wishes to lose more weight with diet and exercise and target a weight 150 pounds. Additional Source Comments Care Teams (unrecognized sec tion and content) Team Status: Inactive Member Role Status Dates Arsenio Baxter MD Primary Care Provider Active Chu Wallis MD Attending Provider Active Team Status: Inactive Member Role Status Dates Arsenio Baxter MD Primary Care Provider Active Amor De Los Santos DPM [place] Attending Provider Active Team Status: Active Member Role Status Dates Arsenio Baxter MD Primary Care Provider Active Goals (unrecognized section and content) Goals may be documented in a n alternate section INFORMATION SOURCE (unrecogn ized section and content) DATE CREATED AUTHOR 08/13/2022 [facility] DATE CREATED AUTHOR AUTHOR'S ORGANIZ ATION 11/12/2022 [facility] DATE CREATED AUTHOR AUTHOR'S ORGANIZ ATION 01/22/2023 [facility] DATE CREATED AUTHOR AUTHOR'S ORGANIZ ATION 02/07/2023 [facility] DATE CREATED AUTHOR AUTHOR'S ORGANIZ ATION 02/07/2023 [employer] DATE CREATED AUTHOR AUTHOR'S ORGANIZ ATION 01/24/2024 [facility] DATE CREATED AUTHOR AUTHOR'S ORGANIZ ATION 02/29/2024 [facility] DATE CREATED AUTHOR AUTHOR'S ORGANIZ ATION 03/07/2024 [facility] FOR RECORDS PERTAINING TO PATIENTS WHO ARE OR HAVE BEEN ENROLLED IN A CHEMICAL DEPENDENCY/SUBSTANCEABUSE PROGRAM, SOME INFORMATION MAY BE OMITTED. This clinical summary was aggregated from multiple sources. Caution should be exercised in using it in the provision of clinical care. This summary normalizes information from multiple sources, and as a consequence, information in this document may materially change the coding, format and clinical context of patient data. In addition, data may be omitted in some cases. CLINICAL DECISIONS SHOULD BE BASED ON THE PRIMARY CLINICAL RECORDS. [facility] [employer] [facility]. provides no warranty or guarantee of the accuracy or completeness of information in this document.
[2024-03-12 07:53] LABS: Basophils Absolute Auto 0.1 10^3/uL (0.0-0.1); Basophils Percent Auto 0.8 % (0.2-2.0); Eosinophils Absolute Auto 0.3 10^3/uL (0.0-0.7); Eosinophils Percent Auto 3.7 % (0.9-7.0); Hematocrit 38.8 % (36.0-48.0); Hemoglobin 12.7 g/dL (12.0-16.0); Immature Granulocytes Abs Auto 0.01 10^3/uL (0.00-0.03); Immature Granulocytes Pct Auto 0.1 % (0.0-0.5); Lymphocytes Absolute Auto 2.3 10^3/uL (1.2-3.8); Lymphocytes Percent Auto 31.1 % (20.5-60.0); Mean Corpuscular HGB Conc 32.7 g/dL (29.9-35.2); Mean Corpuscular Hemoglobin 29.5 pg (26.7-34.0); Mean Platelet Volume 10.1 fL (9.5-13.5); Monocytes Absolute Auto 0.5 10^3/uL (0.3-0.8); Monocytes Percent Auto 6.4 % (1.7-12.0); Neutrophils Absolute Auto 4.2 10^3/uL (1.4-6.5); Neutrophils Percent Auto 57.9 % (43.0-75.0); Platelet Count 362 10^3/uL (150-450); Red Blood Count 4.31 10^6/uL (4.20-5.40); Red Cell Distribution Width 12.8 % (11.0-15.0); White Blood Count 7.3 10^3/uL (4.0-11.0)
[2024-03-12 09:20] LABS: Alanine Aminotransferase 24 U/L (14-59); Aspartate Amino Transferase 15 U/L (15-37); BUN Creatinine Ratio 20.3; Calcium 9.3 mg/dL (8.5-10.1); Chloride 104 mmol/L (98-107); Chol HDL Ratio 2.5; Cholesterol 223 mg/dL (<=200); Estimated GFR (African America >60 (>=60); Estimated GFR (Non-African Ame >60 (>=60); Glucose 95 mg/dL (74-106); HDL Cholesterol 90 mg/dL (40-60); Potassium 3.9 mmol/L (3.5-5.1); Sodium 141 mmol/L (136-145); Thyroid Stimulating Hormone 1.665 uIU/mL (0.358-3.740); Triglycerides 142 mg/dL (<=150); VLDL CHOLESTEROL 28.4 mg/dL
[2024-03-12 09:39] LABS: Anion Gap 12.6; Carbon Dioxide 28.3 mmol/L (21.0-32.0)
== END 2024-03-12 07:11 | disposition home or self-care (01) ==
LOC: LAB 07:12
PROVIDERS: PCP Family Medicine; Visit Provider Internal Medicine Cardiovascular Disease
DX: I10 Essential (primary) hypertension (principal); Z13.220 Encounter for screening for lipoid disorders
CPT/HCPCS: 36415; 80048; 80061; 84443; 84450; 84460; 85025

== ENCOUNTER 2024-06-05 15:30 | Outpatient (OUT) | payer OTHER, SELFPAY ==
--- OUTSIDE RECORDS SUMMARY | 2024-06-05 15:46 | XMS_ITS | CCD ---
Author Organization [facility] Care Team Providers Care Clinical Phlebotomist Name Role Phone MD Arsenio Baxter Primary Care Provider KIARA De Los Santos Attending Provider [phone] MD Chu Wallis Attending Provider [phone] MD Arsenio Baxter Primary Care Provider MD [...] Unavailable LACONISELISE Attending Unavailable PETITTIMONIKA Attending Unavailable Sarmini, Aurelia Gonzales Attending Unavaila ble Sarmini, Aurelia Gonzales Admitting Unavaila ble Sarmini, Aurelia Gonzales Attending Unavaila ble Sarmini, Aurelia Annal Referring Unavaila ble Sarmini, Aurelia Gonzales Attending Unavaila ble Sarmini, Aurelia Gonzales Attending Unavaila ble Allergies Allergy Classification Reported Allergen(s) Allergy Type Date of Onset Reaction(s) Facility (4 sources) Sulfonamides (Antibiotic); Translations: [Sulfa (Sulfonamide Antibiotics)] Propensity to adverse reactions 2 Itching [facility] (6 sources) Sulfonamides (Antibiotic); Translations: [Sulfa Drugs] Allergy to drug (finding) [facility] Repository Medications Current Medications Medication Drug Class(es) Dates Sig (Normalized) Sig (Original) acetaminophen 325 mg / HYDROcodone bitartrate 5 mg oral tablet (4 sources) Opioid Agonist Start: 06-28-2022 take 1 tablet by mouth every six hours Hydrocodone-Aceta minophen Active 1 TAB PO Q6H 30 June 28, 2022 Start: 09-28-2021 End: 06-13-2022 take 1 tablet by mouth every six hours Hydrocodone-Acetaminophen Discontinued 1 TAB PO Q6H 40 September 28, 2021 June 13, 2022 9:52am [...] Test Name Value Interpretation Reference Range [facility] Patient Letter [facility] March 18, 2024 ANUSHKA PERDOMO [address] [place] [address] : 1965 Below is a summary of the results of your recent colonoscopy. Your results have been sent to your primary care provider along with recommendations on when the procedure should be repeated. COLONOSCOPY WITH POLYP REMOVAL OR BIOPSY Type of polyp 2- tubular adenoma - not cancer but can become cancer if not removed. Additional colonoscopies will be necessary to monitor your condition and assure that new polyps have not developed. Based on your results we are recommending you repeat the procedure in 5 years You will be placed in our reminder system and will receive a reminder letter prior to your next due date. [facility] [phone] [facility] Reminderson 03-18-2024 Reminders Reminders - From: Brenda Solorzano I To: [facility] - Reminders/Recalls; Sent: 03/18/2024 13:55:07 EDT Show up: 12/08/2028 13:54:00 EDT Subject: Colonoscopy recall Due Date/Time: 03/05/2029 13:55:00 EDT Reminder/Recall [address] Crockett 03/05/[address] [facility] Surgical Pathology Reporton 03-12-2024 Surgical Pathology Report [facility] [address] [place] [address]- Surgical Pathology Report Collected Date/Time: 03/05/2024 13:30 EDT Pathologist: Taras Chao MD Received Date/Time: 03/05/2024 18:00 EDT Bon SANDRA, Aurelia Crockett MD, Aurelia Gonzales 07 Surgical Pathology Report - 03/12/2024 15:16 EDT - Auth (Verified) Final Diagnosis COLON, CECUM, POLYPECTOMY: - Tubular adenoma (Electronic Signature) Yan. Zhanna MD 03/12/2024 15:16 Clinical Information Pre-Op Diagnosis: Melena, left lower quadrant abdominal pain Procedure: Colonoscopy Post-Op Diagnosis: 1. Small internal hemorrhoids on retroflexion 2. Moderate sigmoid diverticulosis 3. Two sessile polyps in the cecum, 3-7 mm in size, resected with cold snare completely and retrieved 4. Normal examined terminal ileum Specimen(s) Received Cecal polyps Gross Description Received in formalin labeled with patient name, number, and cecal polyps are multiple fragments of conley tissue ranging from 0.1 to 0.6 cm in greatest dimension and measuring in aggregate 1.5 x 0.6 x 0.1 cm. The specimen is entirely submitted in one cassette. (DC) DC:[facility] Microscopic Description Microscopic examination performed unless gross only specified. [facility] Comment on above: Performed By: #### [id number] #### [facility] Laboratory [address] [place] [address] Ambulatory Visit Summaryon 0 02-21-2024 Ambulatory Visit [...] if questions or concerns Pharmacy Information [facility]: [address], [place] [phone] Allergies sulfa drugs (Unknown) Problems Ongoing - [...] for your care. Normal [facility] Gastroenterology Office/Clin ic Noteon 02-21-2024 Gastroenterology Office/Clinic [...] sigmoid polyp status post removal with the Lipocalyxo biopsy forceps. Recommendations: Repeat colonoscopy:: In 3 [...] Recorded zoster vaccine, inactivated 05/08/2023 Recorded SARSCoV2 mRNA(tozinamer-bari- sucros) vac 02/21/2022 Recorded 2024-02-20: TPV50 SARS-CoV-2 (COVID-19) mRNA BNT-162b2 vax 05/21/2021 Recorded 2024-02-20: TPV23 SARS-CoV-2 (COVID-19) mRNA BNT-162b2 vax 09/11/2020 Recorded SARS-CoV-2 (COVID-19) mRNA BNT-162b2 vax 08/21/2020 Recorded diphtheria/pertussis , acel/tetanus adult 04/20/2017 Recorded diphtheria/pertussis , acel/tetanus adult 11/25/2014 Recorded measles/mumps/rubell a virus vaccine 11/25/2014 Recorded Normal [facility] Comment on above: Result Comment: Elec tronically Signed By: Bon SANDRA, Aurelia Gonzales\.br\Date and Time Signed: 02/21/24 08:34 EDT C [...] Locations R1: This test was performed at: [facility], [address] [place] [address], [address] , [place], [facility] Comment on above: Performed By: #### 2 [id number] #### [facility] [address] [place] [address] Office Visit (Cardiology)on 02-06-2023 Follow-up visit Diagnoses/Problems Assessed Primary hypertension (401.9) (I10) Overweight with body mass index (BMI) of 25 to 25.9 in adult (278.02,V85.21) (E66.3,Z68.25) Never a smoker Dyspnea (786.09) (R06.00) Orders Overweight with body mass index (BMI) of 25 to 25.9 in adult Healthy Weight Tips; Status:Complete - Retrospective Authorization; Done: [id number] Some eating tips that can help you lose weight.; Status:Complete - Retrospective Authorization; Done: [id number] SocHx: Never a smoker Tobacco Use Screening; Status:Complete; Done: [id number] Patient Instructions Please bring all medicines, vitamins, [...] negative for complaint. Vitals Vital Signs Recorded: [id number] 01:13PM Heart Rate84, L Radial Ifmvczvw611, LUE, Sitting Xpzipwcub66, LUE, Sitting Height5 ft 6 in Zyplzg733 lb BMI Nldfiezovf02.99 kg/m2 BSA Calculated1.82 Tobacco Useb) No Falls [...] Feb 06 2023 2:15PM EST (Author) Normal [facility] Tobacco Screening.on 023 Fall risk assessment a) No falls within the last year [facility] DO Work Phone: Tobacco use status CPHS b) No [facility] 250 DO Work Phone: Echocardiogramon 11-29-2022 Echocardiography [facility] [address] [facility], [address] [facility] [place] [address] TRANSTHORACIC ECHOCARDIOGRAM REPORT Patient Name: ANUSHKA Jones Physician: [id number] Caridad Fowler MD, [facility] Study Date: 11/29/2022 Referring CARIDAD FOWLER Physician: MRN/PID: [id number] PCP: Arsenio Baxter Accession/Order#: [id number] Department [facility] Location: Date of : 1965 Fellow: Gender: F Nurse: Admit Date: Corporate Training Manager: Patricia Delgado RDCS, T Height: 167.64 cm CC Report to: Weight: 73.03 kg Study Type: Echocardiogram BSA: 1.82 m2 Blood Pressure: 132 /84 mmHg Diagnosis/ICD: R06.00-Dyspnea, unspecified; R01.1-Cardiac murmur, unspecified Indication: Edema, HTN, Palpitations, Overweight Procedure/CPT: Echo Complete w Full [id number] Study Detail: The following Echo studies were [...] AoV Mean P.0 mmHg (1.7-11.5mmHg) LVOT Max Je: 0.82 m/s (<=1.1m/s) AoV VTI: 41.20 cm (18-25cm) LVOT VTI: 18.50 cm LVOT Diameter: 1.80 cm (1.8-2.4cm) AoV Area, VTI: 1.14 cm2 (2.5-5.5cm2) AoV Area,Vmax: 1.19 cm2 (2.5-4.5cm2) AoV Dimensionless Index: 0.45 TRICUSPID VALVE/RVSP: Normal Ranges: Peak TR Velocity: 2.65 m/s RV Syst Pressure: 31.1 mmHg (< 30mmHg) PULMONIC VALVE: Normal Ranges: PV Max Je: 1.1 m/s (0.6-0.9m/s) PV Max P.8 mmHg [id number] Caridad Fowler MD, [facility] Electronically signed on 12/01/2022 at 9:15:41 AM Final Normal [facility] Cardiac Stress Teston 2022 Cardiac Stress Test [address], [address] [place] [address] Exercise Stress Test Patient Name: ANUSHKA Ordering Physician: [id number] Caridad Fowler MD [facility] Study Date: 10/28/2022 Reading Physician: Pauline Fowler MD, [facility] MRN/PID: [id number] Supervising [id number] Goldie Waldron Physician: Accession/Order#: [id number] Referring Physician: CARIDAD FOWLER Date of : 1965 PCP: Gender: F Fellow: Height: 167.64 cm Nurse: Mayra Arechiga RN Weight: 73.03 kg Corporate Training Manager: N/A BSA: 1.82 m2 Technologist: BMI: 25.99 kg/m2 Additional Staff: Age: 57 years cc report to: Patient Location: report to: [id number] Caridad Fowler MD, [facility] Study Type: Cardiac Stress Test Diagnosis/ICD: R01.1-Cardiac murmur, unspecified; R06.00-Dyspnea, unspecified Indication: Heart Murmur and Dyspnea Procedure/CPT: Stress Test Supervision-[id number] Falls Risk: Low: Patient has low risk [...] treadmill score of 7+ which is favorable. [id number] Caridad Fowler MD, FACC Electronically signed on 10/31/2022 at 6:20:56 PM Final Normal [facility] Cardiac Stress Test [facility] Work Phone: FSHon 10-15-2022 FSH 51.4 mIU/mL Normal [facility] Comment on above: Result Comment: Adul t Female: Follicular phase 3.5 - 12.5 Ovulation phase 4.7 - 21.5 Luteal phase 1.7 - 7.7 Postmenopausal 25.8 - 134.8 Performed By: #### L [facility] #### [facility] [address] [place] [address] Dr. Jordan Gan LUTEINIZING HORMONE (LH)on 0 10-15-2022 LH 23.4 mIU/mL Normal [facility] Comment on above: Result Comment: Adul t Female: Follicular phase 2.4 - 12.6 Ovulation phase 14.0 - 95.6 Luteal phase 1.0 - 11.4 Postmenopausal 7.7 - 58.5 Performed By: #### L [facility] #### [facility] [address] [place] [address] Dr. Jordan Gan US PELVIS AND TRANSVAGon [...] DAVID HERNANDEZ Date: 2022-10-14 11:55 Normal [facility] CBC AUTO DIFFon 10-07-2022 BASO # 0.1 103/ul Normal 0.0-0.1 [facility] Comment on above: Performed By: #### C BC #### [facility] [address] [place], [place] [address] Dr. Jordan Gan Basophils/100 WBC (Bld) 0.7 % Normal 0.2-2.0 [facility] Comment on above: Performed By: #### C BC #### [facility] [address] [place], [place] [address] Dr. Jordan Gan EO # 0.2 103/ul Normal 0.0-0.7 [facility] Comment on above: Performed By: #### C BC #### [facility] [address] [place] [address] Dr. Jordan Gan Eosinophils/100 WBC (Bld) 2.9 % Normal 0.9-7.0 [facility] Comment on above: Performed By: #### C BC #### [facility] [address] [place] [address] Dr. Jordan Gan Erythrocyte distribution width (RBC) [Ratio] 13.2 % Normal 11.0-15.0 [facility] Comment on above: Performed By: #### C BC #### [facility] [address] [place] [address] Dr. Jordan Gan Hematocrit (Bld) [Volume fraction] 41.1 % Normal 36.0-48.0 [facility] Comment on above: Performed By: #### C BC #### [facility] [address] [place] [address] Dr. Jordan Gan Hemoglobin (Bld) [Mass/Vol] 13.7 g/dL Normal 12.0-16.0 [facility] Comment on above: Performed By: #### C BC #### [facility] [address] [place] [address] Dr. Jordan Gan IG # 0.01 10e3/ul Normal 0.00-0.03 [facility] Comment on above: Performed By: #### C BC #### [facility] [address] [place] [address] Dr. Jordan Gan IG % 0.1 % Normal 0.0-0.5 [facility] Comment on above: Performed By: #### C BC #### [facility] [address] [place] [address] Dr. Jordan Gan LYMPH # 1.9 103/ul Normal 1.2-3.8 [facility] Comment on above: Performed By: #### C BC #### [facility] [address] [place] [address] Dr. Jordan Gan Lymphocytes/100 WBC (Bld) 27.6 % Normal 20.5-60.0 [facility] Comment on above: Performed By: #### C BC #### [facility] [address] [place] [address] Dr. Jordan Gan MANUAL DIFF REQ NO Normal [facility] Comment on above: Performed By: #### C BC #### [facility] [address] [place] [address] Dr. Jordan Gan MCH (RBC) [Entitic mass] 29.8 pg Normal 26.7-34.0 [facility] Comment on above: Performed By: #### C BC #### [facility] [address] [place] [address] Dr. Jordan Gan MCHC (RBC) [Mass/Vol] 33.3 g/dL Normal 29.9-35.2 [facility] Comment on above: Performed By: #### C BC #### [facility] [address] [place] [address] Dr. Jordan Gan MCV (RBC) [Entitic vol] 89.5 fL Normal 81.0-99.0 [facility] Comment on above: Performed By: #### C BC #### [facility] [address] [place] [address] Dr. Jordan Gan MONO # 0.5 103/ul Normal 0.3-0.8 [facility] Comment on above: Performed By: #### C BC #### [facility] [address] [place] [address] Dr. Jordan Gan Monocytes/100 WBC (Bld) 7.6 % Normal 1.7-12.0 [facility] Comment on above: Performed By: #### C BC #### [facility] [address] [place] [address] Dr. Jordan Gan NEUT # 4.3 103/ul Normal 1.4-6.5 [facility] Comment on above: Performed By: #### C BC #### [facility] [address] [place] [address] Dr. Jordan Gan Neutrophils/100 WBC (Bld) 61.1 % Normal 43.0-75.0 [facility] Comment on above: Performed By: #### C BC #### [facility] [address] [place] [address] Dr. Jordan Gan Platelet mean volume (Bld) [Entitic vol] 9.4 fL Critically low 9.5-13.5 [facility] Comment on above: Performed By: #### C BC #### [facility] [address] [place] [address] [address] Jordan Gan PLT 446 103/ul Normal 150-450 [facility] Comment on above: Performed By: #### C BC #### [facility] [address] [place] [address] Dr. Jordan Gan RBC 4.59 106/ul Normal 4.20-5.40 [facility] Comment on above: Performed By: #### C BC #### [facility] [address] [place] [address] Dr. Jordan Gan WBC 7.0 103/ul Normal 4.0-11.0 [facility] Comment on above: Performed By: #### C BC #### [facility] [address] [place] [address] Dr. Jordan Gan LIPID PROFILEon 10-07-2022 CHOL-HDL RATIO NORM SEE BELOW Normal [facility] Comment on above: Result Comment: 3.3 - 4.4 LOW RISK 4.4 - 7.1 AVERAGE RISK 7.1 - 11.0 MODERATE RISK >11.0 HIGH RISK Performed By: #### A LT, AST, LIPID, TSH, BMP #### [facility] [address] [place] [address] Dr. Jordan Gan Cholesterol [Mass/Vol] 251 mg/dL Critically high <=200 [facility] Comment on above: Performed By: #### A LT, AST, LIPID, TSH, BMP #### [facility] [address] [place] [address] Dr. Jordan Gan Cholesterol in HDL [Mass/Vol] 109 mg/dL Critically high 40-60 [facility] Comment on above: Performed By: #### A LT, AST, LIPID, TSH, BMP #### [facility] [address] [place] [address] Dr. Jordan Gan Cholesterol in LDL [Mass/Vol] 127.4 mg/dL Normal [facility] Comment on above: Performed By: #### A LT, AST, LIPID, TSH, BMP #### [facility] [address] [place] [address] Dr. Jordan Gan Cholesterol.total/Chol esterol in HDL [Mass ratio] 2.3 {ratio} Normal [facility] Comment on above: Performed By: #### A LT, AST, LIPID, TSH, BMP #### [facility] [address] [place] [address] Dr. Jordan Gan HDL NORMAL > or = 60 mg/dl - LOW CARDIOVASCULAR RISK <40 mg/dl - HIGH CARDIOVASCULAR RISK Normal [facility] Comment on above: Performed By: #### A LT, AST, LIPID, TSH, BMP #### [facility] [address] [place] [address] Dr. Jordan Gan LDL CALC NORMAL SEE BELOW Normal [facility] Comment on above: Result Comment: <100 mg/dl OPTIMAL 100 - 129 mg/dl NEAR OR ABOVE OPTIMAL 130 - 159 mg/dl BORDERLINE HIGH 160 - 189 mg/dl HIGH >190 mg/dl VERY HIGH Performed By: #### A LT, AST, LIPID, TSH, BMP #### [facility] [address] [place] [address] Dr. Jordan Gan Triglyceride [Mass/Vol] 73 mg/dL Normal <=150 [facility] Comment on above: Performed By: #### A LT, AST, LIPID, TSH, BMP #### [facility] [address] [place] [address] Dr. Jordan Gan VLDL CALC 14.6 mg/dL Normal [facility] Comment on above: Performed By: #### A LT, AST, LIPID, TSH, BMP #### [facility] [address] [place] [address] Dr. Jordan Gan PROF CHEM 8 (BAS METB)on Anion gap [Moles/Vol] 10.6 mmol/L Normal [facility] Comment on above: Performed By: #### A LT, AST, LIPID, TSH, BMP #### [facility] [address] [place] [address] [address] Jordan Gan Calcium [Mass/Vol] 9.4 mg/dL Normal 8.5-10.1 [facility] Comment on above: Performed By: #### A LT, AST, LIPID, TSH, BMP #### [facility] [address] [place] [address] [address] Jordan Gan Chloride [Moles/Vol] 102 mmol/L Normal 98-107 [facility] Comment on above: Performed By: #### A LT, AST, LIPID, TSH, BMP #### [facility] [address] [place] [address] [address] Jordan Gan CO2 [Moles/Vol] 30.8 mmol/L Normal 21.0-32.0 [facility] Comment on above: Performed By: #### A LT, AST, LIPID, TSH, BMP #### [facility] [address] [place] [address] Dr. Jordan Gan Creatinine [Mass/Vol] 0.60 mg/dL Normal 0.55-1.02 [facility] Comment on above: Performed By: #### A LT, AST, LIPID, TSH, BMP #### [facility] [address] [place] [address] [address] Jordan Gan EGFR-AF BURUNDIAN >60 Normal >=60 [facility] Comment on above: Performed By: #### A LT, AST, LIPID, TSH, BMP #### [facility] [address] [place] [address] [address] Jordan Gan EGFR-NON AF BURUNDIAN >60 Normal >=60 [facility] Comment on above: Performed By: #### A LT, AST, LIPID, TSH, BMP #### [facility] [address] [place] [address] [address] Jordan Gan Glucose [Mass/Vol] 95 mg/dL Normal 74-106 [facility] Comment on above: Performed By: #### A LT, AST, LIPID, TSH, BMP #### [facility] [address] [place] [address] [address] Jordan Gan Potassium [Moles/Vol] 4.4 mmol/L Normal 3.5-5.1 [facility] Comment on above: Performed By: #### A LT, AST, LIPID, TSH, BMP #### [facility] [address] [place] [address] Dr. Jordan Gan Sodium [Moles/Vol] 139 mmol/L Normal 136-145 [facility] Comment on above: Performed By: #### A LT, AST, LIPID, TSH, BMP #### [facility] [address] [place] [address] Dr. Jordan Gan Urea nitrogen [Mass/Vol] 13.0 mg/dL Normal 7.0-18.0 [facility] Comment on above: Performed By: #### A LT, AST, LIPID, TSH, BMP #### [facility] [address] [place] [address] Dr. Jordan Gan Urea nitrogen/Creatinine [Mass ratio] 21.7 mg/mg Normal [facility] Comment on above: Performed By: #### A LT, AST, LIPID, TSH, BMP #### [facility] [address] [place] [address] Dr. Jordan Gan SGOTon 10-07-2022 AST [Catalytic activity/Vol] 17 U/L Normal 15-37 [facility] Comment on above: Performed By: #### A LT, AST, LIPID, TSH, BMP #### [facility] [address] [place] [address] Dr. Jordan Gan SGPTon 10-07-2022 ALT [Catalytic activity/Vol] 34 U/L Normal 14-59 [facility] Comment on above: Performed By: #### A LT, AST, LIPID, TSH, BMP #### [facility] [address] [place] [address] Dr. Jordan Gan TSHon 10-07-2022 TSH 1.554 uIU/mL Normal 0.358-3.740 [facility] Comment on above: Performed By: #### A LT, AST, LIPID, TSH, BMP #### [facility] [address] [place] [address] Dr. Jordan Gan VITAMIN D 25 OHon 10-07-2022 VIT D 25-OH 38.1 ng/mL Normal [facility] Comment on above: Performed By: #### A LT, AST, LIPID, TSH, BMP #### [facility] [address] [place], [place] [address] Dr. Jordan Gan VIT D RANGES SEE BELOW Normal [facility] Comment on above: Result Comment: <20 ng/mL Vit D deficient 20 - <30 ng/mL Vit D insufficient 30 - 100 ng/mL Vit D sufficient >100 ng/mL Potential Toxicity Performed By: #### A LT, AST, LIPID, TSH, BMP #### [facility] [address] [place], [place] [address] Dr. Jordan Gan Office Visit (Cardiology)on 10-04-2022 [...] on exertion and palpitations. 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 She tells [...] Vital Sig (more content not included)... [facility] VITALSon 10-04-2022 Adult depression screening assessment No [facility] 250 DO Work Phone: Tobacco Screening.on 023 Tobacco use status CPHS b) No [facility] 250 DO Work Phone: HCG ( test) IA.rapi d Ql (U)Ordered By: Deven Philippe on 06-28-2022 HCG ( test) Ql (U) Negative [facility] HCG,Urineon 06-28-2022 Beta HCG ( test) Ql (U) Negative Normal [facility] Comment on above: Result Comment: PERF ORMED BY: [address] [address] PATHOLOGIST CLINICAL MENTAL HEALTH COUNSELOR KRISTI BROWN M.D. Performed By: #### U HCG #### [address] [place] [address] [facility] COVID-19 Antigenon 2 COVID-19 Antigen Healthcare Worker?: [...] developed and its performance characteristic determined by [employer] and validated at [facility]. This test has not been FDA cleared [...] for SARS Antigen by DANNI PERFORMED BY: [facility] [address] [place] [address] PATHOLOGIST CLINICAL MENTAL HEALTH COUNSELOR KRISTI BROWN M.D. [facility] Comment on above: Performed By: #### C OVID-19 ERIKA, SOFIANEG #### [facility] [address] [id number] [facility] [place] COVID-19 SOFIAOrdered By: Teofilo Wallis on 06-24-2022 SARS-CoV+SARS-CoV-2 (COVID-19) Ag IA.rapid Ql (Resp) Negative Negative [facility] Comment on above: This is a duplicate Erika SARS Antigen (DANNI) result to be used for statistical tracking purpose only. No Panel InformationOrdered By: Chu Wallis on 06-24-2022 SARS Antigen (LFIA) [facility] Erika Ag Negativeon 06-24-20 Erika Ag Negative Negative Normal Negative [facility] Comment on above: Result Comment: This is a duplicate Reika SARS Antigen (DANNI) result to be used for statistical tracking purpose only. PERFORMED BY: [place] [address] PATHOLOGIST CLINICAL MENTAL HEALTH COUNSELOR KRISTI BROWN M.D. Performed By: #### C OVID-19 ERIKA, SOFIANEG #### [address] ECG 12 lead ECGon 06-13-2022 ECG 12 lead ECG [facility] [address] [place] [address] Electrocardiograph Report Signed Patient: Anushka Perdomo MR#: [id number] 65 : 1965 Acct:[id number] Age/Sex: 57 / F ADM Date: 06/13/22 Loc: Room: Type: [facility] Attending Dr: Chu Wallis MD Ordering Provider: [...] change was found Confirmed by [place] SANDRA FACAndrés, CARIDAD ([id number]) on 06/15/2022 1:57:01 PM Referred By: BIMAL Electronically Signed By:CARIDAD FOWLER MD FACC Transcribed By: MUS Signed By Caridad Fowler MD, [facility] 06/15/22 1357 Normal [facility] Covid-19 PCR (CVDTBH)on 03-10 SARS-CoV-2 (COVID-19) RNA CHON+probe Ql (Unsp spec) Not detected Normal NOT DETECTED [facility] Comment on above: Result Comment: This test is not yet approved or cleared by the [place] FDA. When there are no FDA-approved or cleared tests available, and other criteria are met, FDA can make tests available under an emergency access mechanism called an Emergency Use Authorization (EUA). The EUA for this test is supported by the Spa Manager/Esthetician of Health and Human Service's (HHS's) declaration [...] consistent with SARS-CoV-2. Performed By: #### C VDTBH #### [facility] [address] [place] [address] Dr. Jordan Gan HCG ( test) Carmen rodriguez Ql (U)Ordered By: Timoteo Delgadillo on 09-28-2021 HCG ( test) Ql (U) Negative [facility] HCG,Urineon 09-28-2021 Beta HCG ( test) Ql (U) Negative Normal [facility] Comment on above: Result Comment: PERF ORMED BY: [facility] [address] [place] [address] PATHOLOGIST CLINICAL MENTAL HEALTH COUNSELOR KRISTI BROWN M.D. Performed By: #### U HCG #### [address] COVID-19 FRMCon 09-24-2021 SARS-CoV-2 (COVID-19) RNA CHON+probe Ql (Unsp spec) Negative Normal Negative [facility] Comment on above: Order Comment: Healt hcare Worker?: N Result Comment: Testing for SARS-CoV-2 by RT-PCR This test was developed and its performance characteristics determined by [employer] (BD) and validated at the [facility]. This test has not been FDA cleared [...] is terminated or revoked sooner. PERFORMED BY: [place] [address] PATHOLOGIST CLINICAL MENTAL HEALTH COUNSELOR KRISTI BROWN M.D. Performed By: #### C OVID 19 [facility] #### [address] COVID-19 Positive/NegativeOr dered By: Chu Wallis on 09-24-2021 SARS-CoV-2 (COVID-19) N gene CHON+probe Ql (Resp) Negative Negative [facility] Comment on above: Testing for SARS-CoV -2 by RT-PCRThis test was developed and its performance characteristics determined by [employer] (BD) and validated at the [facility]. This test has not been FDA cleared [...] lead ECGon 09-13-2021 ECG 12 lead ECG [facility] [place] [address] Electrocardiograph Report Signed Patient: Anushka Perdomo MR#: [id number] 65 : 1965 Acct:[id number] Age/Sex: 56 / F ADM Date: 09/13/21 Loc: Room: Type: [facility] Attending Dr: Chu Wallis MD Ordering Provider: [...] DONIS Signed By Ludivina Barriga DO 09/13 [facility] Vital Signs Date Time Vital Sign Value Performing Clinician Facility 02-06-2023 13:130400 Body height 167.64 cm Arsenio Baxter Work Phone: [facility] 250 DO Work Phone: 02-06-2023 13:13-0400 Body mass index (BMI) [Ratio] 25.99 kg/m2 Arsenio Baxter Work Phone: [facility] 250 DO Work Phone: 02-06-2023 13:13-0400 Body surface area Derived from formula 1.82 m2 Arsenio Moralesyer Work Phone: [facility] 250 DO Work Phone: 02-06-2023 13:13-0400 Body weight 73.03 kg Edlenore Moralesyer Work Phone: [facility] 250 DO Work Phone: 02-06-2023 13:13-0400 Diastolic blood pressure 60 mm[Hg] Edward Jaylan Hemeyer Work Phone: [facility] 250 DO Work Phone: 02-06-2023 13:13-0400 Heart rate 84 /min Arsenio Moralesyer Work Phone: [facility] 250 DO Work Phone: 02-06-2023 13:13-0400 Systolic blood pressure 122 mm[Hg] Edward Jaylan Hemeyer Work Phone: [facility] 250 DO Work Phone: 10-07-2022 00:00-0400 127.4 1 Arsenio Moralesyer Work Phone: [facility] 250 DO Work Phone: Comment on above: FSLDL 10-04-2022 09:34-0400 Diastolic blood pressure 90 mm[Hg] Edward Jaylan Hemeyer Work Phone: [facility] 250 DO Work Phone: 10-04-2022 09:34-0400 Systolic blood pressure 138 mm[Hg] Edward Jaylan Hemeyer Work Phone: [facility] 250 DO Work Phone: 10-04-2022 09:33-0400 Body height 167.64 cm Arsenio Baxter Work Phone: [facility] 250 DO Work Phone: 10-04-2022 09:33-0400 Body mass index (BMI) [Ratio] 25.99 kg/m2 Cordelllenore Baxter Work Phone: [facility] 250 DO Work Phone: 10-04-2022 09:33-0400 Body surface area Derived from formula 1.82 m2 Cordelllenore Baxter Work Phone: [facility] 250 DO Work Phone: 10-04-2022 09:33-0400 Body weight 73.03 kg Cordelllenore Baxter Work Phone: [facility] 250 DO Work Phone: 10-04-2022 09:33-0400 Diastolic blood pressure 90 mm[Hg] Cordelllenore Baxter Work Phone: [facility] 250 DO Work Phone: 10-04-2022 09:33-0400 Heart rate 65 /min Cordelllenore Baxter Work Phone: [facility] 250 DO Work Phone: 10-04-2022 09:33-0400 Systolic blood pressure 142 mm[Hg] Arsenio Moralesgarcía Work Phone: [facility] 250 DO Work Phone: 06-28-2022 15:35-0500 Diastolic blood pressure 84 mm[Hg] MD Arsenio Baxter Work Phone: [facility] 06-28-2022 15:35-0500 Heart rate 94 /min MD Arsenio Baxter Work Phone: [facility] 06-28-2022 15:35-0500 Respiratory rate 16 /min MD Arsenio Baxter Work Phone: [facility] 06-28-2022 15:35-0500 SaO2% (BldA) [Mass fraction] 94 % MD Arsenio Baxter Work Phone: [facility] 06-28-2022 15:35-0500 Systolic blood pressure 138 mm[Hg] MD Arsenio Baxter Work Phone: [facility] 06-28-2022 13:48-0500 Body temperature 97 [degF] MD Arsenio Baxter Work Phone: [facility] 06-28-2022 13:48-0500 Inhaled oxygen flow rate 6 L/min MD Arsenio Baxter Work Phone: [facility] 06-28-2022 11:18-0500 Body mass index (BMI) [Ratio] 25.5 kg/m2 MD Arsenio Baxter Work Phone: [facility] 06-28-2022 11:06-0500 Body height 167.64 cm MD Arsenio Bxater Work Phone: [facility] 06-28-2022 11:06-0500 Body weight 71.9 kg MD Arsenio Baxter Work Phone: [facility] 09-28-2021 17:19-0400 Diastolic blood pressure 61 mm[Hg] MD Arsenio Baxter Work Phone: [facility] 09-28-2021 17:19-0400 Heart rate 77 /min MD Arsenio Baxter Work Phone: [facility] 09-28-2021 17:19-0400 Respiratory rate 16 /min MD Arsenio Baxter Work Phone: [facility] 09-28-2021 17:19-0400 SaO2% (BldA) [Mass fraction] 91 % MD Arsenio Baxter Work Phone: [facility] 09-28-2021 17:19-0400 Systolic blood pressure 119 mm[Hg] MD Arsenio Baxter Work Phone: [facility] 09-28-2021 15:58-0400 Inhaled oxygen flow rate 1 L/min MD Arsenio Baxter Work Phone: [facility] 09-28-2021 13:42-0400 Body temperature 97.5 [degF] MD Arsenio Baxter Work Phone: [facility] 09-28-2021 11:04-0400 Body height 167.64 cm MD Arsenio Baxter Work Phone: [facility] 09-28-2021 11:04-0400 Body mass index (BMI) [Ratio] 25.2 kg/m2 MD Arsenio Baxter Work Phone: [facility] 09-28-2021 11:04-0400 Body weight 71 kg MD Arsenio Baxter Work Phone: [facility] Encounters Encounter Date Encounter Type Care Provider Facility Start: 06-05-2024 ambulatory Moses Talal Sarmini Facility:Mat Start: 03-05-2024 End: 03-05-2024 ambulatory Moses Talal Sarmini Facility:[facility] Start: 03-05-2024 End: 03-05-2024 ambulatory Moses Talal Sarmini Facility:CD:[id number] Start: 02-27-2024 End: 02-27-2024 ambulatory MONIKA ANDERSEN Not Available Start: 02-21-2024 End: 02-21-2024 ambulatory Moses Talal Sarmini Facility:Mat Start: 02-08-2024 ambulatory Moses Sarmini Facili ty:Mat Start: 01-17-2024 End: 01-17-2024 ambulatory Shankar Obrien Facility:[facility] Start: 01-12-2024 End: 01-12-2024 ambulatory ELISE RODGERS Not Available Start: 09-04-2023 End: 09-04-2023 ambulatory ARSENIO BAXTER Not Available Start: 02-06-[address] Arsenio Baxter Facility: Start: 02-06-2023 Office outpatient vi sit 15 minutes Arsenio Baxter Work Phone: [facility] 250 DO Work Phone: Start: 11-29-[address] Caridad Fowler Facility:[id number] Start: 11-01-2022 Chart Update Arsenio Lunsford er Work Phone: [facility] 250 DO Work Phone: Start: 10-28-[address] Caridad Fowler Facility:[id number] Start: 10-14-2022 End: 10-15-[address] SHANKAR OBRIEN Facility:H1 Start: 10-07-2022 End: 10-08-[address] CARIDAD FOWLER Facility:H1 Start: 10-04-2022 Office outpatient ne w 45 minutes Arsenio Baxter Work Phone: [facility] DO Work Phone: Start: 10-04-[address] Arsenio Baxter Facility: Start: 06-28-2022 End: 06-28-2022 ambulatory [facility] Facility:[facility] Start: 06-28-2022 End: 06-28-2022 Admission to same day surgery center MD Arsenio Baxter Work Phone: [facility] [place] Start: 06-28-2022 End: 06-28-2022 ambulatory MD Arsenio Baxter Work Phone: [facility] Work Phone: Start: 06-24-2022 End: 06-24-2022 ambulatory [facility] Facility:[facility] Start: 06-24-2022 End: 06-24-2022 Patient encounter procedure MD Arsenio Baxter Work Phone: [facility] Aju-Fwr-Zdjiknhb Testing Start: 06-13-2022 End: 06-13-2022 ambulatory [facility] Facility:[facility] Start: 06-13-2022 End: 06-13-2022 ambulatory MD Arsenio Baxter Work Phone: [facility] Work Phone: Start: 06-13-2022 End: 06-13-2022 Patient encounter procedure MD Arsenio Baxter Work Phone: [facility] Aqc-Kow-Zmtkcldd Testing Start: 03-28-2022 End: 03-28-[address] ARSENIO BAXTER . Facility: Start: 09-28-2021 End: 09-28-2021 ambulatory [facility] Facility:[facility] Start: 09-28-2021 End: 09-28-2021 Admission to same day surgery center MD Arsenio Baxter Work Phone: [facility] [place] Start: 09-24-2021 End: 09-24-2021 ambulatory [facility] Facility:[facility] Start: 09-24-2021 End: 09-24-2021 Patient encounter procedure MD Arsenio Baxter Work Phone: [facility] Zie-Eva-Rlaihith Testing Start: 09-13-2021 End: 09-13-2021 ambulatory [facility] Facility:[facility] Start: 09-13-2021 End: 09-13-2021 Patient encounter procedure MD Arsenio Baxter Work Phone: [facility] Jto-Nnl-Hlfzxhkp Testing Start: 08-03-2021 End: 08-03-2021 Patient encounter procedure MD Arsenio Baxter Work Phone: [facility] Procedures Date Procedure Procedure Detail Performing [...] Caridad Fowler, Status: Pen, Time: 8:50 AM -[facility] 250 DO Work Phone: Start: 01-11-2023 FUV, Provider: Caridad Fowler, Status: Pen, Time: 11:30 AM FUV, Provider: Caridad Fowler, Status: Pen, Time: 11:30 AM [facility] 250 DO Work Phone: Start: 11-29-2022 ECHO, Provider: [facility]TRAS[facility] 01,[id number], Status: Pen, Time: 10:45 AM ECHO, Provider: [facility]TRAS[facility] 01,[id number], Status: Pen, Time: 10:45 AM -[facility] 250 DO Work Phone: Start: 10-28-2022 STRESS KING, Provider : [facility] NUCLEAR 01,[id number], Status: Pen, Time: 11:00 AM STRESS KING, Provider: [facility] NUCLEAR 01,[id number], Status: Pen, Time: 11:00 AM [facility] 250 DO Work Phone: Start: 06-28-2022 [facility] Start: 06-28-2022 [facility] Patient referral [facility] Work Phone: Immunizations Immunization Date Immunization Notes Care Provider Fa grant 02-21-2022 Comirnaty 30 MCG/0.3 ML Intramuscular Suspension Arsenio Baxter Work Phone: [place] [address] DO Work Phone: 05-21-2021 COVID-19 Adriana Cabrales (Pfizer) MD Arsenio Baxter Work Phone: [facility] 09-11-2020 COVID-19 Adriana Cabrales (Pfizer) MD Arsenio Baxtre Work Phone: [facility] 08-21-2020 COVID-19 Adriana Cabrales (Pfizer) MD Arsenio Baxter Work Phone: [facility] 04-20-2017 tetanus toxoid, redu tavares diphtheria toxoid, and acellular pertussis vaccine, adsorbed Arsenio Moralesyer Work Phone: [place] [address] DO Work Phone: 11-25-2014 measles, mumps and rubella virus vaccine Arsenio Moralesyer Work Phone: [place] [address] DO Work Phone: 11-25-2014 tetanus toxoid, redu tavares diphtheria toxoid, and acellular pertussis vaccine, adsorbed Arsenio Tian Andrewyer Work Phone: [place] [address] DO Work Phone: Payers Date Payer Category Payer Self-pay [id number] 2021 Self-pay [id number] 1965 Unknown [id number] 2.16.84 0.1.139472.3.579.2.593 1965 Unknown [id number] 2.16.84 0.1.271071.3.579.2.593 1965 Unknown [id number] 2.16.84 0.1.621952.3.579.2.593 1965 Unknown [id number] 2.16.8 40.1.832515.3.579.2.1068 1965 Unknown [id number] 2.16.8 40.1.026723.3.579.2.1068 1965 Unknown [id number] 2.16. 840.1.294666.3.579.2.356 1965 Unknown [id number] 2.16. 840.1.411073.3.579.2.356 1965 Unknown [id number] 2.16.8 40.1.330403.3.579.2.727 1965 Unknown [id number] 2.16.84 0.1.911469.3.579.2.1259 1965 Unknown [id number] 2.16.84 0.1.165488.3.579.2.1259 1965 Unknown [id number] 2.16.84 0.1.032156.3.579.2.1259 1965 Unknown [id number] 2.16.8 40.1.955221.3.579.2.727 1965 Unknown [id number] 2.16.8 40.1.181712.3.579.2.727 1965 Unknown [id number] 2.16.8 40.1.507927.3.579.2.727 1965 Unknown [id number] 2.16.8 40.1.510122.3.579.2.727 1965 Unknown [id number] 2.16.8 40.1.361620.3.579.2.727 1959 Unknown [id number] 1959 Unknown [id number] Unknown [id number] 2.16.8 40.1.720877.3.579.2.531 Unknown [id number] 2.16.8 40.1.559943.3.579.2.531 Unknown [id number] 2.16.8 40.1.159618.3.579.2.531 Unknown [id number] 2.16.8 40.1.535178.3.579.2.531 Unknown [id number] 2.16.8 40.1.878708.3.579.2.531 Unknown [id number] 2.16.8 40.1.269802.3.579.2.531 Unknown Social History Date Type Detail Facility Start: 09-28-2021 End: 06-28-2022 Tobacco smoking status NHIS Never smoked tobacco (finding) [facility] Start: 1965 Sex Assigned At Female F [facility] Caffeine use Caffeine use -[facility] [place] 250 DO Work Phone: Goals Date Patient [...] on exertion and palpitations. 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 She tells [...] exercise and target a weight 150 pounds. -[facility] 250 DO Work Phone: Evaluation note Note Date & Type Note Facility Evaluation note No assessment information availcliff vang [facility] Work Phone: Hospital Discharge instructions Note Date [...] the incision. PLEASE NOTIFY OUR OFFICE at [phone] if you: -Develop a fever of 101 [...] rate. FOLLOW UP -Call the office at [phone] for a follow up appointment 1 week. * AFTER HOURS PHONE NUMBER [phone] * [facility] Work Phone: Chief Complaint and Reason for Visit Chief Complaint M79.672 Cosmetic Cosmetic Cosmetic Chief Complaint Cosmetic Chief [...] section and content) DATE CREATED AUTHOR 08/13/2022 [facility] DATE CREATED AUTHOR AUTHOR'S ORGANIZ ATION 11/12/2022 [facility] [place] [facility] DATE CREATED AUTHOR AUTHOR'S ORGANIZ ATION 01/22/2023 [facility] DATE CREATED AUTHOR AUTHOR'S ORGANIZ ATION 02/07/2023 [facility] DATE CREATED AUTHOR AUTHOR'S ORGANIZ ATION 02/07/2023 [facility] DATE CREATED AUTHOR AUTHOR'S ORGANIZ ATION 01/24/2024 Epperson Wilkes [facility] DATE CREATED AUTHOR AUTHOR'S ORGANIZ ATION 02/29/2024 [facility] EPIC DATE CREATED AUTHOR AUTHOR'S ORGANIZ ATION 03/13/2024 Epperson Jose Luis [facility] Center DATE CREATED AUTHOR AUTHOR'S ORGANIZ ATION 03/19/2024 Epperson Wilkes [facility] ical Center DATE CREATED AUTHOR AUTHOR'S ORGANIZ ATION 06/04/2024 [facility] FOR RECORDS PERTAINING TO PATIENTS WHO [...] BE BASED ON THE PRIMARY CLINICAL RECORDS. [facility] [employer] provides no warranty or guarantee of the accuracy or completeness of information in this document.
[2024-06-05 16:15] LABS: Basophils Percent Auto 0.6 % (0.2-2.0); Eosinophils Absolute Auto 0.3 10^3/uL (0.0-0.7); Hematocrit 39.4 % (36.0-48.0); Hemoglobin 12.9 g/dL (12.0-16.0); Immature Granulocytes Abs Auto 0.01 10^3/uL (0.00-0.03); Immature Granulocytes Pct Auto 0.2 % (0.0-0.5); Lymphocytes Absolute Auto 2.3 10^3/uL (1.2-3.8); Lymphocytes Percent Auto 36.5 % (20.5-60.0); Mean Corpuscular HGB Conc 32.7 g/dL (29.9-35.2); Mean Corpuscular Hemoglobin 29.7 pg (26.7-34.0); Mean Corpuscular Volume 90.6 fL (81.0-99.0); Mean Platelet Volume 9.9 fL (9.5-13.5); Monocytes Absolute Auto 0.5 10^3/uL (0.3-0.8); Neutrophils Absolute Auto 3.2 10^3/uL (1.4-6.5); Neutrophils Percent Auto 50.7 % (43.0-75.0); Platelet Count 386 10^3/uL (150-450); Red Blood Count 4.35 10^6/uL (4.20-5.40); Red Cell Distribution Width 12.9 % (11.0-15.0); White Blood Count 6.2 10^3/uL (4.0-11.0)
[2024-06-05 16:41] LABS: Free T4 0.88 ng/dL (0.76-1.46)
[2024-06-05 16:42] LABS: Alanine Aminotransferase 24 U/L (14-59); Albumin Level 3.6 g/dL (3.4-5.0); Alkaline Phosphatase 85 U/L (46-116); Anion Gap 12.1; Aspartate Amino Transferase 11 U/L (15-37); BUN Creatinine Ratio 17.8; Bilirubin Total 0.3 mg/dL (0.2-1.0); Calcium 9.6 mg/dL (8.5-10.1); Carbon Dioxide 29.9 mmol/L (21.0-32.0); Chloride 106 mmol/L (98-107); Estimated GFR (African America >60 (>=60 mL/min/1.73m^2); Estimated GFR (Non-African Ame >60 (>=60 mL/min/1.73m^2); Globulin 3.6 g/dL; Glucose 98 mg/dL (74-106); Sodium 144 mmol/L (136-145); Thyroid Stimulating Hormone 1.184 uIU/mL (0.358-3.740); Total Protein 7.2 g/dL (6.4-8.2)
== END 2024-06-05 15:31 | disposition home or self-care (01) ==
LOC: LAB 15:31
PROVIDERS: PCP Family Medicine
DX: R10.32 Left lower quadrant pain (principal); K92.1 Melena; E07.9 Disorder of thyroid, unspecified
CPT/HCPCS: 36415; 80053; 84439; 84443; 85025

== ENCOUNTER 2025-03-21 08:10 | Outpatient (OUT) | payer OTHER, SELFPAY ==
--- OUTSIDE RECORDS SUMMARY | 2025-03-11 09:15 | XMS_ITS | Encounter Summary ---
Author Organization [facility] Address [address] [place] [address] Care Team Providers Care Supervisor Mail Carriers Name Role Phone Arsenio Mast MD Primary Care Provider + [phone] Reason for Visit * Rehabilitation - Outpatient (Routine) - Authorized Specialty Diagnoses / Procedures Referred By Contac t Referred To Contact Physical Therapy Diagnoses DDD (degenerative disc disease), cervical Cervical spine arthritis Procedures [place] OFFICE/OUTPATIENT [facility] 60 MINUTES Arsenio Mast MD [address] [place] [address] [address] [place] [address] Phone: tel: fax:[phone] Timoteo Deutsch, PT [address] [place] [address] Phone: tel: fax: Referral ID Status Reason Start Date Expiration Date Visits Requested Visits Authorized [id number] Authorized Consult and Treat 07/30/2024 07/09/2025 99 99 Encounter Details Date Type Department Care Team (Late st Contact Info) Description 03/11/2025 9:15 AM EDT Treatment [facility] [address] [place] [address] Timoteo Deutsch, PT [address] [place] [address] DDD (degenerative disc disease), cervical (Primary Dx); Cervical spine arthritis Social History Tobacco Use Types Packs/Day Years Used Date Smoking Tobacco: Never Smokeless Tobacco: Never Alcohol Use Standard Drinks/Week Comments Yes 4 (1 standard drink = 0.6 oz pure alcohol) Caffeine intake: 2-3 cups per day coffee, tea, SPARK PHQ-2 Answer Date Recorded Patient Health Questionnaire-2 Score 0 02/28/2023 Comments No Sex and Gender Information Value Date Recorded Sex Assigned at Not on file Legal Sex Female 6:50 PM EDT Gender Identity Not on file Sexual Orientation Not on file documented as of this encounter Progress Notes * Timoteo Deutsch, PT - 03/11/2025 9:15 AM EDT Images from the original note were not included. Physical Therapy Physical Therapy Treatment Visit Patient Name: Anushka Perdomo Today's Date: 03/11/2025 Encounter Diagnoses Name Primary? DDD (degenerative disc disease), cervical Yes Cervical spine arthritis Time In: 9:15 am Time out: 10:15 am Supervised Time: 45 Min Total Time: 60 Min Visit Number: 18 (PT- 15% co-insurance No co-pay # visits based on medical necessity NPAR) Chief Complaint: Chronic neck pain Cervical paraspinal spasm Bilateral UE cervical radiculopathy PRECAUTIONS: As Tolerated Subjective History: 59 yo female presents per PCP Arsenio Mast MD for cervical OA/pain. Patient reports progressive cervical pain and newer complaints of occipital tenderness, tension type headaches, and bilateral UE paresthesia including numbness/tingling in the C5-T1 UE distribution. Referral for PT tiago luation and treatment per PCP Arsenio Mast MD. Pain: Presents 1-week post last PT session that was conducted on 03/04/25. Reports right sided neckpain is improving well. Was able to get it loose with HEP and has been fairly well managed in the last week with pain levels 0-3/10 intensity and relieved with performance of HEP. Overall Progress: Improving Objective: Re-Examination performed on 03/11/25-[facility] Reports increased tolerance to ADL, Sleep, and Recreation. AROM cervical spine improving at 78 degrees rotation and 40 degrees side-bending. Also paraspinal tone is now mildly increased as compared to moderately at time of initial evaluation. Neck Index scores 24 compared to 46 at IE indicative of good functional impairment and is consistent with PT examination findings. 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 Gentle PROM all planes. Stretching of upper trap and tensioning of bilateral UE's and LE's to improve neural mobility (20 Min) Therapeutic Exercise: Per Exercise Grid found in patient documents including cervical flexibility, scapular and cervical/core strengthening, ergonomic, and postural training to assist ad terminal makeup operator management (10 Min-HEP attached to exercise grid) Therapeutic Activity: Functional Activity Training (PRN) Neuromuscular Re-education: Neuromuscular reeducation including muscle facilitation, ergonomic and postural training, core strengthening (15 Min) Modalities: Electrical Stimulation/ice seated to mid to lower cervical and upper thoracic spine IFCHigh/Low Sweep for inflammation and pain control (15 Min); UltraSound-2 MHz 1.5 w/cm2 at mid to lower cervical spine (PRN) Goals: Short Term Goals: To be met by 04/08/25 The patient to demonstrate 50% reduction in pain to at worst 4/10 intensity with good reduction in UE/LE paresthesia symptoms in 1-2 weeks and no paresthesia in 2-4 weeks (Goal Met 03/11/25-DBO) The patient to achieve functional cervical rotation at 80 degrees or better, normal upper limb neural mobility, and cervical postural and scapular strength of 4+/5 in 4-6 weeks (Goal Met 03/11/25-DBO) The patient to score <20% residual functional impairment via Neck Index f/u difficulty questionnaire in 4-8 weeks (Goal in progress 03/11/25-DBO) The patient to demonstrate good compliance to ergonomic and postural recommendations and have prophylactic management plan in place including routine home management via flexibility and strength exercises to reduce risk of future exacerbations to be met by conclusion of PT expected in 4-8 weeks (Goal in progress 03/11/25-DBO) Rehab Potential: Good PT Assessment: The patient has participate in 18 outpatient PT sessions since start of care on 08/06/24 for subacute and progressive neck pain, spasm, and upper extremity paresthesia per referral of Arsenio Mast MD. Presents 1-week post last PT session that was conducted on 03/04/25. Reports right sided neckpain is improving well. Was able to get it loose with HEP and has been fairly well managed in the last week with pain levels 0-3/10 intensity and relieved with performance of HEP. AROM cervical spine and paraspinal tone is WFL/WNL following session. Working toward reducing frequency of PT and progressing toward independent management of this condition. Updated PT POC as above.Note forwarded to referring Arsenio Mast MD for review and co-signature (03/11/25-DBO) Plan: Recommend continuation of outpatient PT 1-3 times/month for up to 3 additional months per above updated PT POC 03/11/25-DBO) I hereby deem this POC medically necessary. Please sign below and fax back to the number below. Physician Signature: Date: Cosigned by Arsenio Mast MD at 03/11/2025 12:41 PM EDT documented in this encounter Plan of Treatment Upcoming Encounters Date Type Department Care Team (Late st Contact Info) Description 03/25/2025 9:30 AM EDT Treatment [facility] [address] [place] [address] Timoteo Deutsch, PT [address] [facility] [place] [address] 04/01/2025 9:30 AM EDT Treatment [facility] [address] [facility] [place] [address] Timoteo Deutsch, PT [address] [place] [address] 04/11/2025 9:30 AM EDT Treatment [facility] [address] [place] [address] Timoteo Deutsch, PT [address] [place] [address] documented as of this encounter Visit Diagnoses Diagnosis DDD (degenerative disc disease), cervical- Primary Degeneration of cervical intervertebral disc Cervical spine arthritis Cervical spondylosis without myelopathy documented in this encounter Care Teams Supervisor Mail Carriers Relationship Specialty Start Date End Date Arsenio Mast MD [address] [address] PCP - General Family Medicine 11/15/22 documented as of this encounter
--- OUTSIDE RECORDS SUMMARY | 2025-03-18 08:30 | XMS_ITS | Encounter Summary ---
Author Organization [facility] Address [address] [place] [address] Phone Care Team Providers Care Recycle Driver Name Role Phone Arsenio Mast MD Primary Care Provider + [phone] Reason for Referral * Consultation (Routine) - Authorized Specialty Diagnoses / Procedures Referred By Arelis t Referred To Contact Cardiology Diagnoses Essential hypertension Procedures Follow Up In Cardiology Ernie Fowler MD [address] [place] [address] [address], [address] [address] Phone: tel: fax: Ernie Fowler MD [address] [place] [address] [address], [address] [address] Phone: tel: fax: Referral ID Status Reason Start Date Expiration Date V isits Requested Visits Authorized [id number] Authorized 03/18/2025 03/18/2026 1 1 Reason for Visit * Reason Comments Follow-up 1 year Essential hyp ertension * Consultation (Routine) - Authorized Specialty Diagnoses / Procedures Referred By Contac t Referred To Contact Cardiology Diagnoses Essential hypertension Procedures Follow Up In Cardiology Ernie Fowler MD [address] [place] [address] [address], [address] [address] Phone: tel: fax: Ernie Fowler MD [address] [place] [address] [address], [address] [address] Phone: tel: fax: Referral ID Status Reason Start Date Expiration Date V isits Requested Visits Authorized [id number] Authorized 03/07/2024 03/07/2025 1 1 Encounter Details Date Type Department Care Team (Late st Contact Info) Description 03/18/2025 8:30 AM EDT Office Visit [facility] [address] [facility] [address] [place] [address] Ernei Fowler MD [address] [facility] [address] [place] [address] Essential hypertension (Primary Dx); Palpitations; Vitamin D deficiency; Screening for lipid disorders; Family history of heart disease; BMI 26.0-26.9,adult; Never smoked tobacco; Overweight; Nonspecific abdominal pain Discharge Disposition: Home Social History Tobacco Use Types Packs/Day Years Used Date Smoking Tobacco: Never Smokeless Tobacco: Never Tobacco Cessation:Counseling Given: Yes Alcohol Use Standard Drinks/Week Comments Yes 0 (1 standard drink = 0.6 oz pur e alcohol) social Comments Unknown Sex and Gender Information Value Date Recorded Sex Assigned at Not on file Legal Sex Female 8:34 AM EST Gender Identity Not on file Sexual Orientation Not on file documented as of this encounter Last Filed Vital Signs Vital Sign Reading Time Taken Comments Blood Pressure 120/78 03/18/2025 8:46 AM EDT Pulse 64 03/18/2025 8:30 AM EDT Temperature - - Respiratory Rate - - Oxygen Saturation - - Inhaled Oxygen Concentration - - Weight 74.4 kg (164 lb) 03/18/2025 8:30 AM EDT Height 167.6 cm (5' 6 ) 03/18/2025 8:30 AM EDT Body Mass Index 26.47 03/18/2025 8:30 AM EDT documented in this encounter Patient Instructions * Patient Instructions* Deysi Silverio LPN - 03/18/2025 8:30 AM EDT Please bring all medicines, vitamins, and herbal supplements with you when you come to the office. Prescriptions will not be filled unless you are compliant with your follow up appointments or have a follow up appointment scheduled as per instruction of your physician. Refills should be requested at the time of your visit. BMI was above normal measurement. Current weight: 74.4 kg (164 lb) Weight change since last visit (-) denotes wt loss 3.6 lbs Weight loss needed to achieve BMI 25: 9.4 Lbs Weight loss needed to achieve BMI 30: -21.5 Lbs Provided instructions on dietary changes Provided instructions on exercise. Lab work One year follow up documented in this encounter Progress Notes * Ernie Fowler MD - 03/18/2025 8:30 AM EDT HPI Patient is in the office for annual follow-up for essential hypertension. Since her last visit a year ago she has had no cardiovascular events whatsoever. Her blood pressure is under excellent control. Has not had any blood work since her last visit. She sees her PCP on as-needed basis only. She has experienced right upper quadrant discomfort postprandial with no nausea vomiting or diarrhea. Abdominal examination is normal. Couple years back she had ultrasound of the abdomen for same presentation with negative workup. Her weight is still slightly above normal but maintains active lifestyle. Assessment/recommendations: 1-essential hypertension, currently in excellent control on valsartan which has been well-tolerated, basic metabolic profile is ordered. Patient follows low- salt diet and maintains active lifestyle. 2-minimal overweight, the patient wishes to lose more weight with diet and exercise and target a weight 150 pounds. 3-family history of premature CAD, the patient was evaluated previously noninvasively and her workup was negative. Active lifestyle was encouraged 4-nonspecific right upper quadrant postprandial pain with negative ultrasound to that area 2 years ago. This probably functional abnormalities. Examination was unremarkable today. Patient will need wellness blood work which is scheduled ROS Right upper quadrant discomfort postprandial Vitals: 03/18/25 0830 03/18/25 0846 BP: 100/68 120/78 BP Location: Left arm Right arm Patient Position: Sitting Sitting Pulse: 64 Weight: 74.4 kg (164 lb) Height: 1.676 m (5' 6 ) Objective Physical Exam Constitutional: Appearance: Normal appearance. HENT: Nose: Nose normal. Neck: Vascular: No carotid bruit. Cardiovascular: Rate and Rhythm: Normal rate. Pulses: Normal pulses. Heart sounds: Normal heart sounds. Pulmonary: Effort: Pulmonary effort is normal. Abdominal: General: Bowel sounds are normal. Palpations: Abdomen is soft. Musculoskeletal: General: Normal range of motion. Cervical back: Normal range of motion. Right lower leg: No edema. Left lower leg: No edema. Skin: General: Skin is warm and dry. Neurological: General: No focal deficit present. Mental Status: She is alert. Psychiatric: Mood and Affect: Mood normal. Behavior: Behavior normal. Thought Content: Thought content normal. Judgment: Judgment normal. Allergies Sulfa (sulfonamide antibiotics) Current Medications Current Outpatient Medications Medication Instructions dicyclomine (BENTYL) 10 mg, 4 times daily doxycycline (MONODOX) 50 mg, Daily FLUoxetine (PROZAC) 20 mg, Daily valsartan (DIOVAN) 160 mg, oral, Daily Assessment/Plan 1. Essential hypertension Follow Up In Cardiology Alanine Aminotransferase Aspartate Aminotransferase Basic Metabolic Panel CBC Lipid Panel Follow Up In Cardiology Alanine Aminotransferase Aspartate Aminotransferase Basic Metabolic Panel CBC Lipid Panel valsartan (Diovan) 160 mg tablet 2. Palpitations Thyroid Stimulating Hormone Thyroid Stimulating Hormone 3. Vitamin D deficiency Vitamin D 25-Hydroxy,Total (for eval of Vitamin D levels) Vitamin D 25-Hydroxy,Total (for eval of Vitamin D levels) 4. Screening for lipid disorders Alanine Aminotransferase Aspartate Aminotransferase Lipid Panel Alanine Aminotransferase Aspartate Aminotransferase Lipid Panel 5. Family history of heart disease 6. BMI 26.0-26.9,adult 7. Never smoked tobacco 8. Overweight 9. Nonspecific abdominal pain Scribe Attestation By signing my name below, Deysi Boyd LPN, Scribe attest that this documentation has been prepared under the direction and in the presence of Ernie Fowler MD. Provider Attestation - Scribe documentation All medical record entries made by the Scribe were at my direction and personally dictated by me. Mihcael reviewed the chart and agree that the record accurately reflects my personal performance of the history, physical exam, discussion and plan. documented in this encounter Plan of Treatment Upcoming Encounters Date Type Department Care Team (Late st Contact Info) Description 03/24/2026 8:30 AM EDT Office Visit [facility] [address] [facility] [address] [place] [address] Ernie Fowler MD [address] [facility] [address] [place] [address] Scheduled Orders Name Type Priority Associated Diagnoses Orde r Schedule Alanine Aminotransferase Lab Routine Essential hypertension Screening for lipid disorders Expected: 03/18/2025 (Approximate), Expires: 03/18/2026 Aspartate Aminotransferase Lab Routine Essential hypertension Screening for lipid disorders Expected: 03/18/2025 (Approximate), Expires: 03/18/2026 Basic Metabolic Panel Lab Routine Essential hypertension Expected: 03/18/2025 (Approximate), Expires: 03/18/2026 CBC Lab Routine Essential hypertension Expected: 03/18/2025 (Approximate), Expires: 03/18/2026 Lipid Panel Lab Routine Essential hypertension Screening for lipid disorders Expected: 03/18/2025 (Approximate), Expires: 03/18/2026 Thyroid Stimulating Hormone Lab Routine Palpitations Expected: 03/18/2025 (Approximate), Expires: 03/18/2026 Vitamin D 25-Hydroxy,Total (for eval of Vitamin D levels) Lab Routine Vitamin D deficiency Expected: 03/18/2025 (Approximate), Expires: 03/18/2026 documented as of this encounter Visit Diagnoses Diagnosis Essential hypertension- Primary Unspecified essential hypertension Palpitations Vitamin D deficiency Screening for lipid disorders Family history of heart disease BMI 26.0-26.9,adult Never smoked tobacco Overweight Nonspecific abdominal pain documented in this encounter Care Teams Recycle Driver Relationship Specialty Start Date End Date Arsenio Mast MD [address] [place] [address] PCP - General 10/04/22 documented as of this encounter
--- OUTSIDE RECORDS SUMMARY | 2025-03-18 09:30 | XMS_ITS | Encounter Summary ---
Author Organization [facility] Address [address] [place] [address] Care Team Providers Care Financial Retirement Plan Specialist Name Role Phone Arsenio Mast MD Primary Care Provider + [phone] Reason for Visit * Rehabilitation - Outpatient (Routine) - Authorized Specialty Diagnoses / Procedures Referred By Contac t Referred To Contact Physical Therapy Diagnoses DDD (degenerative disc disease), cervical Cervical spine arthritis Procedures [place] OFFICE/OUTPATIENT [facility] 60 MINUTES Arsenio Mast MD [address] [place] [address] [address] [place] [address] Phone: tel: fax:[phone] Timoteo Deutsch, PT [address] [place] [address] Phone: tel: fax: Referral ID Status Reason Start Date Expiration Date Visits Requested Visits Authorized [id number] Authorized Consult and Treat 07/30/2024 07/09/2025 99 99 Encounter Details Date Type Department Care Team (Late st Contact Info) Description 03/18/2025 9:30 AM EDT Treatment [facility] [address] [place] [address] Timoteo Deutsch, PT [address] [place] [address] DDD (degenerative disc disease), cervical [...] Progress Notes * Timoteo Deutsch, PT - 03/18/2025 9:30 AM EDT Images from the original note were not included. Physical Therapy Physical Therapy Treatment Visit Patient Name: Anushka Perdomo Today's Date: 03/18/2025 Encounter Diagnoses Name Primary? DDD (degenerative disc disease), cervical Yes Cervical spine arthritis Time In: 9:30 am Time out: 10:30 am Supervised Time: 45 Min Total Time: 60 Min Visit Number: 19 (PT- 15% co-insurance No co-pay # visits [...] last PT session that was conducted on 03/11/25. Reports minimal pain until doing gardening including pulling weeds with moderate increased pain at the right upper trapeziusand lower cervical spine. Denies radiculopathy. Overall Progress: Improving Objective: Re-Examination performed on 03/11/25-DBO Reports increased tolerance to ADL, Sleep, and [...] strengthening, ergonomic, and postural training to assist care home management (10 Min-HEP attached to exercise grid) [...] PT Assessment: The patient has participate in 19 outpatient PT sessions since start of care on 08/06/24 for subacute and progressive neck pain, spasm, and upper extremity paresthesia per referral of Arsenio Mast MD. Presents 1-week post last PT session that was conducted on 03/11/25. Reports minimal pain until doing gardening including pulling weeds with moderate increased pain at the right upper trapeziusand lower cervical spine. Denies radiculopathy. AROM cervical spine and paraspinal tone is WFL/WNL following session. Working toward reducing frequency of PT and progressing toward independent management of this condition. Updated PT POC as above.Follow-up in 1-week if necessary. Plan: Recommend continuation of outpatient PT 1-3 times/month for up to 3 additional months per above updated PT POC 03/11/25-DBO) I hereby deem this POC medically necessary. Please sign below and fax back to the number below. Physician Signature: Date: documented in this encounter Plan of Treatment Upcoming Encounters Date Type Department Care Team (Late st Contact Info) Description 03/25/2025 9:30 AM EDT Treatment [facility] [address] [facility] [place] [place] [address] Timoteo Deutsch, PT [address] [facility] [place] [address] 04/01/2025 9:30 AM EDT Treatment [facility] [address] [facility] [place] [place] [address] Timoteo Deutsch, PT [address] [facility] [place] [address] 04/11/2025 9:30 AM EDT Treatment [facility] [address] [facility] [place] [place] [address] Timoteo Deutsch, PT [address] [facility] [place] [address] documented as of this encounter Visit Diagnoses Diagnosis DDD (degenerative disc disease), cervical- Primary Degeneration of cervical intervertebral disc Cervical spine arthritis Cervical spondylosis without myelopathy documented in this encounter Care Teams Financial Retirement Plan Specialist Relationship Specialty Start Date End Date Arsenio Mast MD [address] [address] PCP - General Family Medicine 11/15/22 documented as of this encounter
--- OUTSIDE RECORDS SUMMARY | 2025-03-21 08:14 | XMS_ITS | Encounter Summary ---
Author Organization [facility] Address [address] [place] [address] Care Team Providers Care Surgical Aides Teacher Name Role Phone Arsenio Mast MD Primary Care Provider [phone] Encounter Details Date Type Department Care Team (Latest Contact Info) Description 03/11/2025 Travel Social History Tobacco Use Types Packs/Day Years [...] on file documented as of this encounter Plan of Treatment Upcoming Encounters Date Type Department Care Team (Late st Contact Info) Description 03/25/2025 9:30 AM EDT Treatment [facility] [address] [place] [address] Timoteo Deutsch, PT [address] [place] [address] 04/01/2025 9:30 AM EDT Treatment [facility] [address] [place] [address] Timoteo Deutsch, PT [address] [place] [address] 04/11/2025 9:30 AM EDT Treatment [facility] [address] [facility] [place] [address] Timoteo Deutsch, PT [address] [facility] [place] [address] documented as of this encounter Visit Diagnoses Not on filedocumented in this encounter Care Teams Surgical Aides Teacher Relationship Specialty Start Date End Date Arsenio Mast MD 112 [facility] [address] [place] [address] PCP - General Family Medicine 11/15/22 documented as of this encounter
--- OUTSIDE RECORDS SUMMARY | 2025-03-21 08:14 | XMS_ITS | Encounter Summary ---
Author Organization [facility] Address [address] [place] [address] Care Team Providers Care Safety Leader Name Role Phone Arsenio Mast MD Primary Care Provider [phone] Encounter Details Date Type Department Care Team (Late st Contact Info) Description 03/18/2025 Bamboo flowsheet [facility] [address] [place] [address] Timoteo Deutsch, PT [address] [place] [address] Social History Tobacco Use Types Packs/Day Years [...] Info) Description 03/25/2025 9:30 AM EDT Treatment [facility] [address] [place] [address] Timoteo Deutsch, PT [address] [place] [address] 04/01/2025 9:30 AM EDT [facility] [address] [place] [address] Timoteo Deutsch, PT [address] [place] [address] 04/11/2025 9:30 AM EDT Treatment [facility] [address] [place] [address] Timoteo Deutsch, PT [address] [place] [address] documented as of this encounter Visit Diagnoses Not on filedocumented in this encounter Care Teams Safety Leader Relationship Specialty Start Date End Date Arsenio Mast MD 112 [facility] 100 [place] [address] PCP - General Family Medicine 11/15/22 documented as of this encounter
--- OUTSIDE RECORDS SUMMARY | 2025-03-21 08:14 | XMS_ITS | Encounter Summary ---
Author Organization [facility] Address [address] [place] [address] Care Team Providers Care Residential Electrician Name Role Phone Arsenio Mast MD Primary Care Provider [phone] Encounter Details Date Type Department Care Team (Late st Contact Info) Description 03/11/2025 Bamboo flowsheet [facility] [address] [place] [address] Timoteo Deutsch, PT [address] [place] [address] Social History Tobacco Use Types [...] EDT Treatment [facility] [address] [place] [address] Timoteo Deutsch, PT [address] [place] [address] 04/01/2025 9:30 AM EDT [facility] [address] [place] [address] Timoteo Deutsch, PT 164 [place] [address] 04/11/2025 9:30 AM EDT Treatment [facility] [address] [place] [address] Timoteo Deutsch, PT 164 [place] [address] documented as of this encounter Visit Diagnoses Not on filedocumented in this encounter Care Teams Residential Electrician Relationship Specialty Start Date End Date Arsenio Mast MD 112 [facility] 100 [place] [address] PCP - General Family Medicine 11/15/22 documented as of this encounter
--- OUTSIDE RECORDS SUMMARY | 2025-03-21 08:15 | XMS_ITS | Clinical Summary ---
Author Organization [facility] Address [address] [place] [address] Care Team Providers Care Advertising Specialist Name Role Phone Arsenio Mast MD Primary Care Provider [phone] Allergies Active Allergy Reactions Criticality Noted Date Comments Nifedipine 01/31/2022 Other Reaction(s): rash Penicillin V 02/21/2023 Other Reaction(s): Unknown Sulfa Antibiotics Rash Low 02/21/2023 Medications valsartan (Diovan) 160 MG tablet Take 160 mg by mouth in the morning. Active FLUoxetine (PROzac) 20 MG capsule Take 20 mg by mouth Daily Active Active Problems Problem Noted Date Diagnosed Date Arthritis of left knee 07/31/2024 Recurrent major depressive disorder, in partial remission 02/28/2023 Chronic fatigue 02/21/2023 Osteoarthritis of left thumb 02/21/2023 Other acquired deformities of left foot 02/22/20 23 Other acquired deformities of right foot 023 Other headache syndrome 02/21/2023 Polydipsia 02/21/2023 Rosacea 02/21/2023 Sleep disorder 02/21/2023 Venous stasis dermatitis of both lower extremiti es 02/21/2023 Atopic dermatitis 11/01/2021 Resolved Problems Problem Noted Date Diagnosed Date Resolved Date Major depressive disorder, s vero episode, moderate 02/21/2023 02/28/2023 Encounters Date Type Department Care Team Description 03/18/2025 9:30 AM EDT Treatment [facility] [address] [place] [address] Timoteo Deutsch, PT DDD (degenerative disc disease), cervical (Primary Dx); Cervical spine arthritis 03/18/2025 Bamboo flowsheet [facility] [address] [place] [address] Timoteo Deutsch, PT 03/18/2025 Travel 03/11/2025 9:15 AM EDT Treatment [facility] [address] [place] [address] Timoteo Deutsch, PT DDD (degenerative disc disease), cervical (Primary Dx); Cervical spine arthritis 03/11/2025 Bamboo flowsheet [facility] [address] [place] [address] Timoteo Deutsch, PT 03/11/2025 Travel 03/04/2025 9:15 AM EDT Treatment [facility] [address] [place] [address] Timoteo Deutsch, PT DDD (degenerative disc disease), cervical (Primary Dx); Cervical spine arthritis 03/04/2025 Bamboo flowsheet [facility] [address] [place] [address] Timoteo Deutsch, PT 03/04/2025 Travel 02/25/2025 7:30 AM EDT Treatment [facility] [address] [place] [address] Timoteo Deutsch, PT DDD (degenerative disc disease), cervical (Primary Dx); Cervical spine arthritis 02/25/2025 Travel 02/18/2025 10:45 AM EDT Treatment [facility] [address] [place] [address] Timoteo Deutsch, PT DDD (degenerative disc disease), cervical (Primary Dx); Cervical spine arthritis 02/18/2025 Telephone [facility] [place] [address] [place] [address] Phi, [place], [place] 02/18/2025 Bamboo flowsheet [facility] [address] [place] [address] Timoteo Deutsch, PT 02/18/2025 Travel 02/07/2025 10:30 AM ED[facility] [address] [place] [address] Timoteo Deutsch, PT DDD (degenerative disc disease), cervical (Primary Dx); Cervical spine arthritis 02/07/2025 Bamboo flowsheet [facility] [address] [place] [address] Timoteo Deutsch, PT 02/07/2025 Travel 01/07/2025 3:30 PM EDT [facility] [address] [place] [address] Timoteo Deutsch, PT DDD (degenerative disc disease), cervical (Primary Dx); Cervical spine arthritis 01/07/2025 [facility] [address] [place] [address] Timoteo Deutsch, PT 01/07/2025 Travel 12/31/2024 4:30 PM EDT [facility] [address] [place] [address] Timoteo Deutsch, PT DDD (degenerative disc disease), cervical (Primary Dx); Cervical spine arthritis 12/31/2024 [facility] [address] [place] [address] Timoteo Deutsch, PT 12/31/2024 Travel 12/24/2024 11:30 AM EDT [facility] [address] [place] [address] Timoteo Deutsch, PT DDD (degenerative disc disease), cervical (Primary Dx); Cervical spine arthritis 12/24/2024 Bamboo flowsheet [facility] [address] [place] [address] Timoteo Deutsch, PT 12/24/2024 Travel from Last 3 Months Immunizations Immunization Administration Dates Next Due Influenza, seasonal, injecta ble, preservative free 04/05/2024 MMR 11/25/2014 Pfizer Purple Cap SARS-CoV-2 Vaccination 021,08/09/2020,07/19/2020 SARS-COV-2 (COVID-19) vaccin e, mRNA, spike protein, LNP, PF, 50 mcg/0.5 mL 04/05/2024 Tdap 12/25/2024,04/20/2017,11/25/2014 Zoster, Recombinant 08/18/2023,05/08/2023 Family History Medical History Relation Name Comments Richard's thyroiditis Daughter Heart disease Father Melanoma Neg Hx Relation Name Status Comments Daughter Alive 1 daughter Father Mother Son Alive 1 son Social History Tobacco Use Types Packs/Day Years Used Date Smoking Tobacco: Never Smokeless Tobacco: Never Tobacco Cessation:Counseling Given: Yes Alcohol Use Standard Drinks/Week Comments Yes 4 [...] on file Sexual Orientation Not on file Last Filed Vital Signs Vital Sign Reading Time Taken Comments Blood Pressure 118/88 01/12/2024 9:20 AM EDT Pulse 70 01/12/2024 9:20 AM EDT Temperature 36.4 C (97.6 F) 01/12/2024 9:20 AM EDT Respiratory Rate - - Oxygen Saturation 98% 01/12/2024 9:20 AM EDT Inhaled Oxygen Concentration - - Weight 73 kg (161 lb) 07/31/2024 11:32 AM EST Height 167.6 cm (5' 6 ) 07/31/2024 11:32 AM EST Body Mass Index 25.99 07/31/2024 11:32 AM EST Plan of Treatment Upcoming Encounters Date Type Department Care Team (Late st Contact Info) Description 03/25/2025 9:30 AM EDT Treatment [facility] [address] [place] [address] Timoteo Deutsch, PT [address] [place] [address] 04/01/2025 9:30 AM EDT Treatment [facility] [address] [place] [address] Timoteo Deutsch, PT [address] [place] [address] 04/11/2025 9:30 AM EDT Treatment [facility] [address] [place] [address] Timoteo Deutsch, PT [address] [place] [address] Health Maintenance Due Date Last Done Comments CT Colonography 1965 FIT-DNA 1965 FIT 1965 FOBT 1965 Sigmoidoscopy 1965 Influenza Vaccine (#1) 2025 04/05/2024 Mammogram 07/29/2025 07/29/2024, 02/04/2021, 10/0 07/2017 Colonoscopy 07/06/2027 07/06/2017 Colorectal Cancer Screening 07/06/2027 Pap Smear 10/09/2027 10/08/2024 Cervical Cancer Screening 10/08/2029 HPV/Cotest 10/08/2029 10/08/2024 Procedures Procedure Name Priority Date/Time Associated Diagnosis Comments THIN PREP TIS PAP AND HR HPV DNA Routine 10/08/2024 9:22 AM EDT BI MAMMOGRAM SCREENING TOMOSYNTHESIS BILATERAL Routine 07/29/2024 3:31 PM EST Screening mammogram for breast cancer COLONOSCOPY Routine 07/06/2017 12:00 PM EST from Last 3 Months or Most Recently Relevant to Health Maintenance Results * THIN PREP TIS PAP AND HR HPV DNA (10/08/2024 9:22 AM EDT) Arsenio Mast MD LAB CYTOLOGY ORDERABLES Edit ed Result - Final * Bilateral screening mammogram with tomosynthesis (07/29/2024 3:31 PM EST) Anatomical Region Laterality Modality Breast Bilateral Mammography 07/31/2024 9:35 AM EST Impressions 07/31/2024 9:42 AM EST Impression: No specific evidence of malignancy seen in either breast. BIRADS 2 - Benign Findings DENSITY: The breasts are heterogeneously dense, which may obscure small masses. FOLLOW-UP: Routine Screening Mammogram ELECTRONICALLY SIGNED BY: Sixto Tam M.D. Narrative 07/31/2024 9:42 AM EST Examination: BI MAMMOGRAM SCREENING TOMOSYNTHESIS BILATERAL Clinical History: screening Technique: Screening digital mammography study of both breasts was performed with 2-D and 3-D tomosynthesis imaging. Study was compared to the prior exam dated 02/04/2021. Findings: There is no evidence of interval dominant spiculated mass, grouped microcalcifications, or skin thickening which would be suggestive of malignancy. A few benign appearing ringlike calcifications bilaterally likely representing oil cysts. A few benign-appearing calcifications are seen bilaterally. Small benign-appearing asymmetric densities bilaterally likely representing fibrocystic changes. Axillary lymph nodes are noted bilaterally. Procedure Note Sixto Tam MD - 07/31/2024 Examination: BI MAMMOGRAM SCREENING TOMOSYNTHESIS BILATERAL Clinical History: screening Technique: Screening digital mammography study of both breasts wasperformed with 2-D and 3-D tomosynthesis imaging. Study was compared tothe prior exam dated 02/04/2021. Findings: There is no evidence of interval dominant spiculated mass,grouped microcalcifications, or skin thickening which would be suggestiveof malignancy. A few benign appearing ringlike calcifications bilaterally likelyrepresenting oil cysts. A few benign-appearing calcifications are seenbilaterally. Small benign-appearing asymmetric densities bilaterallylikely representing fibrocystic changes. Axillary lymph nodes are notedbilaterally. IMPRESSION: Impression: No specific evidence of malignancy seen in either breast. BIRADS 2 - Benign Findings DENSITY: The breasts are heterogeneously dense, which may obscure smallmasses. FOLLOW-UP: Routine Screening Mammogram ELECTRONICALLY SIGNED BY: Sixto Tam M.D. Arsenio Mast MD IMG BI PROCEDURES Final Resu lt * Colonoscopy (07/06/2017 12:00 PM EST) Anatomical Region Laterality Modality Endoscopy 07/06/2017 12:0 0 PM EST Narrative 07/06/2017 12:00 PM EST PERFORMED AT [facility] LOCATION:[id number] Abnormal Procedure Note CONVERSION, GENERIC - 11/24/2022 PERFORMED AT [facility] LOCATION:[id number] Abnormal Arsenio Mast MD ENDOSCOPY PROCEDURE ORDERABL ES Final Result from Last 3 Months or Most Recently Relevant to Health Maintenance Insurance [employer] Advance Directives Documents on File Type Date Recorded Patient Family Intervention Specialist Expl anation Advance Directives and Living Will 02/14/2022 2021-10-15 Power Of Psychology Professor Care Teams Advertising Specialist Relationship Specialty Start Date End Date Arsenio Mast MD [address] [place] [address] PCP - General Family Medicine 11/15/22
--- OUTSIDE RECORDS SUMMARY | 2025-03-21 08:15 | XMS_ITS | Encounter Summary ---
Author Organization [facility] Address [address] [place] [address] Care Team Providers Care Jackerman Name Role Phone Arsenio Mast MD Primary Care Provider [phone] Encounter Details Date Type Department Care Team (Late st Contact Info) Description 02/07/2023 Abstract [facility] [address] [facility] [place] [place] [address] Arsenio Mast MD 112 [facility] [address] [place] [address] Social History Tobacco Use Types Packs/Day Years Used Date Smoking Tobacco: Never Assessed Comments Unknown Sex and Gender Information Value Date Recorded Sex Assigned at Not on file Legal Sex Female 6:50 PM EDT Gender Identity Not on file Sexual Orientation Not on file documented as of this encounter Plan of Treatment Upcoming Encounters Date Type Department Care Team (Late st Contact Info) Description 03/25/2025 9:30 AM EDT Treatment [facility] [address] [place] [address] Timoteo Deutsch, PT [address] [place] [address] 04/01/2025 9:30 AM EDT Treatment [facility] [address] [place] [address] Timoteo Deutsch, PT [address] [place] [address] 04/11/2025 9:30 AM EDT Treatment [facility] 164 [facility] [place] [place] [address] Timoteo Deutsch, PT [address] [place] [address] documented as of this encounter Visit Diagnoses Not on filedocumented in this encounter Care Teams Jackerman Relationship Specialty Start Date End Date Arsenio Mast MD 112 [facility] [address] [place] [address] PCP - General Family Medicine 11/15/22 documented as of this encounter
--- OUTSIDE RECORDS SUMMARY | 2025-03-21 08:15 | XMS_ITS | Encounter Summary ---
Author Organization [facility] Address [address] [place] [address] Care Team Providers Care Munitions Worker Name Role Phone Arsenio Mast MD Primary Care Provider Encounter Details Date Type Department Care Team (Late st Contact Info) Description 10/21/2024 Orders Only [facility] 112 [facility] 100 [place] [address] Arsenio Mast MD 112 [facility] 100 [place] [address] Social History Tobacco Use Types Packs/Day Years [...] EDT Treatment [facility] [address] [place] [address] Timoteo Deutsch, PT [address] [place] [address] 04/01/2025 9:30 AM EDT Treatment [facility] [address] [facility] [place] [address] Timoteo Deutsch, PT [address] [place] [address] 04/11/2025 9:30 AM EDT Treatment [facility] [address] [facility] [place] [address] Timoteo Deutsch, PT [address] [facility] [address] documented as of this encounter Procedures Procedure Name Priority Date/Time Associated Diagnosis Comments THIN PREP TIS PAP AND HR HPV DNA Routine 10/08/2024 9:22 AM EDT documented in this encounter Results * THIN PREP TIS PAP AND HR HPV DNA (10/08/2024 9:22 AM EDT) Arsenio Mast MD LAB CYTOLOGY ORDERABLES Edit ed Result - Final documented in this encounter Visit Diagnoses Not on filedocumented in this encounter Care Teams Munitions Worker Relationship Specialty Start Date End Date Arsenio Mast MD [address] [address] PCP - General Family Medicine 11/15/22 documented as of this encounter
--- OUTSIDE RECORDS SUMMARY | 2025-03-21 08:15 | XMS_ITS | Encounter Summary ---
Author Organization [facility] Address [address] [place] [address] Phone Care Team Providers Care Drum Stock Clerk Name Role Phone Arsenio Mast MD Primary Care Provider Encounter Details Date Type Department Care Team (Late st Contact Info) Description 03/12/2024 Scanned Document [facility] [address] [place] [address] Scanning, Generic Provider Social History Tobacco Use Types Packs/Day Years Used Date Smoking Tobacco: Never Smokeless Tobacco: Never Alcohol Use Standard Drinks/Week Comments Yes 0 (1 standard drink = 0.6 oz pur e alcohol) social Comments Unknown Sex and Gender Information Value Date Recorded Sex Assigned at Not on file Legal Sex Female 8:34 AM EST Gender Identity Not on file Sexual Orientation Not on file COVID-19 Exposure Response Date Recorded In the last 10 days, have yo u been in contact with someone who was confirmed or suspected to have Coronavirus/COVID-19? No / Unsure 03/07/2024 8:24 AM EDT documented as of this encounter Plan of Treatment Upcoming Encounters Date Type Department Care Team (Late st Contact Info) Description 03/24/2026 8:30 AM EDT Office Visit [facility] [address] [facility] [address] [place] [address] Ernie Fowler MD [address] [place] [address] documented as of this encounter Procedures Procedure Name Priority Date/Time Associated Diagnosis Comments OUTSIDE LAB SCAN 03/12/2024 OUTSIDE LAB SCAN 03/12/2024 documented in this encounter Results * OUTSIDE LAB SCAN (03/12/2024) Narrative 03/12/2024 Ordered by an unspecified provider. us Generic Provider Scanning OUTSIDE SCAN Final Result * OUTSIDE LAB SCAN (03/12/2024) Narrative 03/12/2024 Ordered by an unspecified provider. us Generic Provider Scanning OUTSIDE SCAN Final Result documented in this encounter Visit Diagnoses Not on filedocumented in this encounter Care Teams Drum Stock Clerk Relationship Specialty Start Date End Date Arsenio Mast MD [address] [place] [address] PCP - General 10/04/22 documented as of this encounter
--- OUTSIDE RECORDS SUMMARY | 2025-03-21 08:15 | XMS_ITS | Encounter Summary ---
Author Organization [facility] Address [address] [place] [address] Care Team Providers Care Benchroom Shop Optician Name Role Phone Arsenio Mast MD Primary Care Provider [phone] Encounter Details Date Type Department Care Team (Late st Contact Info) Description 07/29/2024 External Result Encounter [facility] External Department Unsolicited Arsenio Mast MD 112 [facility] [address] [place] [address] Social History Tobacco Use Types Packs/Day Years [...] EDT Treatment [facility] 164 [place] [address] Timoteo Deutsch, PT 164 [place] [address] 04/01/2025 9:30 AM EDT Treatment [facility] 164 [place] [address] Timoteo Deutsch, PT [address] [place] [address] 04/11/2025 9:30 AM EDT Treatment [facility] [address] [place] [address] Timoteo Deutsch, PT [address] [place] [address] documented as of this encounter Procedures Procedure Name Priority Date/Time Associated Diagnosis Comments XR KNEE 4+ VIEWS LEFT 07/29/2024 3:44 PM EST documented in this encounter Results * XR knee 4+ views left (07/29/2024 3:44 PM EST) Anatomical Region Laterality Modality Lower Extremities, Knee [facility] 07/29/2024 3:44 PM EST Impressions 07/29/2024 3:50 PM EST No hypermobility. Extensive C4-5, C5-6 and C6-7 spondylosis. 4 views left knee and HISTORY: Fell 5 months ago. Left knee pain The medial and patellofemoral compartment marginal spurring. Adequate joint spaces. Adequate alignment. No acute displaced fracture. No joint effusion. Unremarkable soft tissues. IMPRESSION: Mild degenerative changes. Impression dictated by: Tom Bose M.D.07/29/2024 3:48 PM Dictation Location: [facility]19 Transcribed By: [facility] 07/29/24 1548 Dictated By: Tom Bose DO 07/29/24 1544 Signed By: <Electronically signed by Tom Bose DO in OV> 07/29/24 1548 Narrative 07/29/2024 3:50 PM EST [facility] Main [place] [address] [place] [address] XRay Report Signed Patient: Anushka Perdomo MR#: [id number] 65 : 1965 Acct:[id number] Age/Sex: 59 / F ADM Date: 07/29/24 Loc: [facility] Room: Type: [facility] CLI Attending Dr: Arsenio Mast MD Copies to: Arsenio Mast MD Ordering Provider: Arsenio Mast MD Date of Service: 07/29/24 XR/XR cerv spine AP/LAT/FLX/EXT: R20.2 ([id number]) XR/XR knee LT 4V*: M25.562,G89.29 AP with lateral neutral, flexion extension viewscervical spine HISTORY: Chronic neck pain with C7 8 radiculopathy COMPARISON: None POSTOPERATIVE CHANGES: None BONY ALIGNMENT: Adequate HYPERMOBILITY::No hypermobility LISTHESIS:Mild degenerative listhesis FRACTURE: None DISC DEGENERATION: Extensive C4-5, C5-6 and C6-7 spondylosis FACETS: Multilevel facet degeneration FORAMEN: Not assessed DENS: Intact CRANIOCERVICAL JUNCTION: Unremarkable SOFT TISSUES: Unremarkable XR/XR cerv spine AP/LAT/FLX/EXT Procedure Note Radiology, Radiologist, - 07/29/2024 [facility] Main [place] [address] [place] [address] XRay Report Signed Patient: Rhina Pedromo#: [id number] 65 : 1965Acct:[id number] Age/Sex: 59 / FADM Date: 07/29/24 Loc: [facility] Att[facility] Dr: Arsenio Mast MD Copies to: Arsenio Mast MD Ordering Provider: Arsenio Mast MD Date of Service: 07/29/24 XR/XR cerv spine AP/LAT/FLX/EXT: R20.2 ([id number]) XR/XR knee LT 4V*: M25.562,G89.29 AP with lateral neutral, flexion extension viewscervical spine HISTORY: Chronic neck pain with C7 8 radiculopathy COMPARISON: None POSTOPERATIVE CHANGES: None BONY ALIGNMENT: Adequate HYPERMOBILITY::No hypermobility LISTHESIS:Mild degenerative listhesis FRACTURE: None DISC DEGENERATION: Extensive C4-5, C5-6 and C6-7 spondylosis FACETS: Multilevel facet degeneration FORAMEN: Not assessed DENS: Intact CRANIOCERVICAL JUNCTION: Unremarkable SOFT TISSUES: Unremarkable XR/XR cerv spine AP/LAT/FLX/EXT IMPRESSION: No hypermobility. Extensive C4-5, C5-6 and C6-7 spondylosis. 4 views left knee and HISTORY: Fell 5 months ago. Left knee pain The medial and patellofemoral compartment marginal spurring. Adequatejoint spaces. Adequate alignment. No acute displaced fracture. No joint effusion. Unremarkablesoft tissues. IMPRESSION: Mild degenerative changes. Impression dictated by: Tom Bose M.D.07/29/2024 3:48 PM Dictation Location: [facility]-- Transcribed By: [facility] 07/29/24 1548 Dictated By: Tom Bose DO 07/29/24 1544 Signed By: <Electronically signed by Tom Bose DO in OV> 07/29/24 1548 Arsenio Mast MD IMG XR PROCEDURES Final Resu lt documented in this encounter Visit Diagnoses Not on filedocumented in this encounter Care Teams Benchroom Shop Optician Relationship Specialty Start Date End Date Arsenio Mast MD [address] [place] [address] PCP - General Family Medicine 11/15/22 documented as of this encounter
--- OUTSIDE RECORDS SUMMARY | 2025-03-21 08:15 | XMS_ITS | Encounter Summary ---
Author Organization [facility] Address [address] [place] [address] Care Team Providers Care Diamond Cleaver Name Role Phone Arsenio Mast MD Primary Care Provider [phone] Encounter Details Date Type Department Care Team (Latest Contact Info) Description 03/18/2025 Travel Social History Tobacco Use Types Packs/Day [...] Description 03/25/2025 9:30 AM EDT Treatment [facility] [address] [place] [phone] Timoteo Deutsch, PT [address] [place] [address] 04/01/2025 9:30 AM EDT Treatment [facility] [address] [place] [phone] Timoteo Deutsch, PT [address] [place] [phone] 04/11/2025 9:30 AM EDT Treatment [facility] [address] [facility] [place] [address] Timoteo Deutsch, PT [address] [facility] [place] [address] documented as of this encounter Visit Diagnoses Not on filedocumented in this encounter Care Teams Diamond Cleaver Relationship Specialty Start Date End Date Arsenio Mast MD 112 [facility] [address] [place] [address] PCP - General Family Medicine 11/15/22 documented as of this encounter
--- OUTSIDE RECORDS SUMMARY | 2025-03-21 08:15 | XMS_ITS | Encounter Summary ---
Author Organization [facility] Address [address] [place] [address] Phone Care Team Providers Care Director Of Catering Name Role Phone Arsenio Mast MD Primary [...] Description 03/24/2026 8:30 AM EDT Office Visit [facility] [address] [facility] [address] [place] [address] Ernie Fowler MD 703 [facility] 2, [place] [address] [place], [place] [id number] documented as of this encounter Visit Diagnoses Not on filedocumented in this encounter Care Teams Director Of Catering Relationship Specialty Start Date End Date Arsenio Mast MD [address] [place] [address] PCP - General 10/04/22 documented as of this encounter
--- OUTSIDE RECORDS SUMMARY | 2025-03-21 08:15 | XMS_ITS | Clinical Summary ---
Author Organization [facility] Address [address] [place] [address] Phone Care Team Providers Care Want Ad Supervisor Name Role Phone Arsenio Mast MD Primary Care Provider [phone] Allergies Active Allergy Reactions Criticality Noted Date Comments Sulfa (Sulfonamide Antibiotics) Unknown 10/2023 Medications FLUoxetine (PROzac) 20 mg capsule Take 1 capsule (20 mg) by mouth once daily. Active doxycycline (Monodox) 50 mg capsule Take 1 capsule (50 mg) by mouth once daily. Take with at least 8 ounces (large glass) of water, do not lie down for 30 minutes after Active dicyclomine (Bentyl) 10 mg capsule Take 1 capsule (10 mg) by mouth 4 times a day. 5 Active valsartan (Diovan) 160 mg tabletIndications :Essential hypertension Take 1 tablet (160 mg) by mouth once daily. 30 tablet 11 5 Active valsartan (Diovan) 160 mg tabletIndications :Essential hypertension TAKE 1 TABLET BY MOUTH EVERY DAY 30 tablet 8 5 03/18/20 25 Discontinu ed(Reorder ) Active Problems Problem Noted Date Diagnosed Date Never smoked tobacco 03/18/2025 Screening for lipid disorders 03/18/2025 Family history of heart disease 03/18/2025 BMI 26.0-26.9,adult 03/07/2024 Vitamin D deficiency 09/20/2023 Depression 09/20/2023 Shortness of breath 09/11/2023 Palpitations 09/11/2023 Essential hypertension 09/11/2023 Encounters Date Type Department Care Team Description 03/18/2025 8:30 AM EDT Office Visit [address] [address] Ernie Fowler MD Essential hypertension (Primary Dx); Palpitations; Vitamin D deficiency; Screening for lipid disorders; Family history of heart disease; BMI 26.0-26.9,adult; Never smoked tobacco; Overweight; Nonspecific abdominal pain Discharge Disposition: Home 03/18/2025 Travel from Last 3 Months Immunizations Immunization Administration Dates Next Due MMR vaccine, subcutaneous (MMR II) 11/25/2014 Pfizer [place] Cap SARS-CoV-2 02/21/2022 Tdap vaccine, age 7 year and older (BOOSTRIX, AD ACEL) 04/20/2017,11/25/2014 Family History Medical History Relation Name Comments Heart attack Father Heart disease Mother Hyperlipidemia Mother Relation Name Status Comments Father Mother Social History Tobacco Use Types Packs/Day Years [...] Mass Index 26.47 03/18/2025 8:30 AM EDT Plan of Treatment Upcoming Encounters Date Type Department Care Team (Late st Contact Info) Description 03/24/2026 8:30 AM EDT Office Visit [address] [phone] Ernie Fowler MD 703 [facility] 2, [facility] [address] [place] [address] Health Maintenance Due Date Last Done Comments CT Colonography 1965 FIT-DNA (Cologuard) 1965 FIT 1965 HIV Screening 1965 Lipid Panel 1965 Sigmoidoscopy 1965 Yearly Adult Physical 1965 Diabetes Screening 1983 Hepatitis C Screening 1983 Hepatitis B Vaccines (1 of 3 - 19+ 3-dose series) 1984 Cervical Cancer Screening 1986 HPV/Cotest 1986 Pap Smear 1986 Pneumococcal Vaccine (1 of 1 - PCV) 2015 Influenza Vaccine (#1) 2025 04/05/2024 Mammogram 07/29/2025 07/29/2024, 07/11, 02/04/2021, Additional history exists Colonoscopy 07/06/2027 07/06/2017 Colorectal Cancer Screening 07/06/2027 DTaP/Tdap/Td Vaccines (4 - Td or Tdap) 12/25/2034 12/25/2024, 04/20/2017, 11/25/2014 MMR Vaccines Completed 11/25/2014 Zoster Vaccines Completed 08/18/2023, 05/08/2023 COVID-19 Vaccine Completed 04/05/2024, 02/21/2022 HIB Vaccines Aged Out No longer eligi ble based on patient's age to complete this topic HPV Vaccines Aged Out No longer eligi ble based on patient's age to complete this topic Hepatitis A Vaccines Aged Out No long er eligible based on patient's age to complete this topic IPV Vaccines Aged Out No longer eligi ble based on patient's age to complete this topic Meningococcal Vaccine Aged Out No jeniffer svetlana eligible based on patient's age to complete this topic Rotavirus Vaccines Aged Out No longer eligible based on patient's age to complete this topic Insurance [facility] Care Teams Want Ad Supervisor Relationship Specialty Start Date End Date Arsenio Mast MD [address] [place] [address] PCP - General 10/04/22
--- OUTSIDE RECORDS SUMMARY | 2025-03-21 08:15 | XMS_ITS | Encounter Summary ---
Author Organization [facility] Address [address] [place] [address] Care Team Providers Care Polysomnographic Technician Name Role Phone Arsenio Mast MD Primary Care Provider [phone] Encounter Details Date Type Department Care Team (Late st Contact Info) Description 03/13/2024 Orders Only [facility] [place] [facility] 112 [facility] 100 [place] [address] Aurelia Crockett MD [address] [facility], [address], [address] [address] Social History Tobacco Use Types Packs/Day Years [...] EDT Treatment [facility] [address] [place] [address] Timoteo Deutsch, PT [address] [place] [address] 04/01/2025 9:30 AM EDT Treatment [facility] [address] [place] [address] Timoteo Deutsch, PT [address] [place] [phone] 04/11/2025 9:30 AM EDT Treatment [facility] [address] [place] [address] Timoteo Deutsch, PT [address] [place] [address] documented as of this encounter Procedures Procedure Name Priority Date/Time Associated Diagnosis Comments TISSUE EXAM Routine 03/05/2024 7:47 AM EDT documented in this encounter Results * Tissue exam (03/05/2024 7:47 AM EDT) Tissue us Aurelia Crockett MD LAB PATHOLOGY ORDERABLES Fin al Result documented in this encounter Visit Diagnoses Not on filedocumented in this encounter Care Teams Polysomnographic Technician Relationship Specialty Start Date End Date Arsenio Mast MD [address] [address] PCP - General Family Medicine 11/15/22 documented as of this encounter
--- OUTSIDE RECORDS SUMMARY | 2025-03-21 08:16 | XMS_ITS | CCD ---
Author Organization [facility] Care Team Providers Care Military Professional Name Role Phone MD Arsenio Baxter Primary Care Provider KIARA De Los Santos Attending Provider [phone] MD Chu Wallis Attending Provider MD Arsenio Baxter Primary Care Provider MD Chu Wallis Attending Provider Arsenio Baxter Unavailable Unavailable Unavailable MICAH, DR CHAPARRO Admitting Unavailable MICAH, DR CHAPARRO Attending Unavailable HEMEYER ., DR RON Primary Care Unavailable ZIEBER, DR DAVID Jolley Consulting Unavailable KRISTYN MARTÍNEZ Consulting Unavailable HEMEYER ., DR RON Admitting Unavailable HEMEYER ., DR RON Attending Unavailable HEMEYER ., DR RON Primary Care Unavailable HEMEYER ., DR RON Consulting Unavailable MCPHERSON, DR ERNIE Stanford Admitting Unavailable MCPHERSON, DR ERNIE Stanford Attending Unavailable HEMEYER ., DR RON Primary Care Unavailable MCPHERSON, DR ERNIE Stanford Consulting Unavailable Mcpherson, Dr. Ernie Díaz Attending Leonela vailable Hemegarcía, Dr. Arsenio Corea Primary Care Unava ilable Mcpherson, Dr. Ernie Díaz Attending Leonela vailable Hemeyer, Dr. Arsenio Corea Primary Care Unava ilable Hemeyer, Dr. Arsenio Corea Primary Care Unava ilable Mcpherson, Dr. Ernie Díaz Attending Leonela vailable Mcpherson, Dr. Ernie Díaz Referring Leonela vailable Shail, Dr. Arsenio Corea Primary Care Unava ilable Mcpherson, Dr. Ernie Díaz Attending Leonela vailable Mcpherson, Dr. Ernie Riverd Referring Leonela vailable Shankar Obrien Attending Unavailable Shankar Obrien Admitting Unavailable SarminiAurelia Attending Unavaila ble Sarmini, Moses Talal Admitting Unavaila ble Sarmini, Moses Talal Attending Unavaila ble Sarmini, Moses Talal Referring Unavaila ble Sarmini, Moses Talal Attending Unavaila ble Arsenio Baxter MD Primary Care Provider Arsenio Baxter MD Primary Care Provider [phone] Arsenio Baxter MD Primary Care Provider [phone] Arsenio Baxter MD Primary Care Provider Arsenio Baxter MD Primary Care Provider [phone] Arsenio Baxter MD Attending Provider Arsenio Baxter Admitting Unavailable Arsenio Baxter Attending Unavailable Arsenio Baxter Primary Care Unavailable Destineemini, Moses Talal Admitting Unavaila ble Sarmini, Moses Talal Attending Unavaila ble Destineemini, Moses Talal Referring Unavaila Juan Keyes Admitting Unavailable Juan Sotelo Attending Unavailable Juan Sotelo Referring Unavailable Shankar Obrien Admitting Unavailable Shankar Obrien Attending Unavailable Bon, Aurelia Annal Attending Unavaila Juan Keyes Attending Unavailable Bon, Moses Talal Referring Unavaila Juan Keyes Attending Unavailable HARRISON HALL Referring Unavailable HARRISON HALL Attending Unavailable Arsenio Baxter MD Primary Care Provider [phone] ERNIE MCPHERSON Attending Unavailable ERNIE MCPHERSON Referring Unavailable ARSENIO BAXTER Primary Care Unavailable ARSENIO BAXTER Attending Unavailable SABAS DEUTSCH Attending Unavailable ARSENIO BAXTER Referring Unavailable SABAS DEUTSCH Attending Unavailable ARSENIO BAXTER Referring Unavailable SABAS DEUTSCH Attending Unavailable ARSENIO BAXTER Referring Unavailable SABAS DEUTSCH Attending Unavailable ARSENIO BAXTER Referring Unavailable SABAS DEUTSCH Attending Unavailable HEMEYER, EDWARD J Referring Unavailable GET, SABAS Mendez Attending Unavailable HEMEYER, EDWARD J Referring Unavailable GET, SABAS Mendez Attending Unavailable HEMEYER, EDWARD J Referring Unavailable GET, SABAS Mendez Attending Unavailable HEMEYER, EDWARD J Referring Unavailable GET, SABAS Mendez Attending Unavailable HEMEYER, EDWARD J Referring Unavailable GET, SABAS Mendez Attending Unavailable HEMEYER, EDWARD J Referring Unavailable GET, SABAS Mendez Attending Unavailable HEMEYER, EDWARD J Referring Unavailable GET, SABAS Mendez Attending Unavailable HEMEYER, EDWARD J Referring Unavailable GET, SABAS Mendez Attending Unavailable HEMEYER, EDWARD J Referring Unavailable HEMEYER, EDWARD J Attending Unavailable HEMEYER, EDWARD J Referring Unavailable GET, SABAS Mendez Attending Unavailable HEMEYER, EDWARD J Referring Unavailable GET, SABAS Mendez Attending Unavailable HEMEYER, EDWARD J Referring Unavailable GET, SABAS Mendez Attending Unavailable HEMEYER, EDWARD J Referring Unavailable GET, SABAS Mendez Attending Unavailable HEMEYER, EDWARD J Referring Unavailable GET, SABAS Mendez Attending Unavailable HEMEYER, EDWARD J Referring Unavailable GET, SABAS Mendez Attending Unavailable HEMEYER, EDWARD J Referring Unavailable Allergies Allergy Classification Reported Allergen(s) Allergy Type Date of Onset Reaction(s) Facility (7 sources) Sulfonamides (Antibiotic); Translations: [Sulfa (Sulfonamide Antibiotics)] Propensity to adverse reactions 2 [facility] (6 sources) Sulfonamides (Antibiotic); Translations: [Sulfa Drugs] Allergy to drug (finding) [facility] (20 sources) Nifedipine Allergy to substance 2 [facility] (20 sources) Penicillin V Drug Allergy 3 [facility] (20 sources) Sulfonamides (Antibiotic) Drug Allergy 3 Rash [facility] Medications Current Medications Medication Drug Class(es) Dates Sig (Normalized) Sig (Original) acetaminophen 325 mg / HYDROcodone bitartrate 5 mg oral tablet (6 sources) Opioid Agonist Start: 06-28-2022 take 1 tablet by mouth every six hours as needed for pain Hydrocodone-Aceta minophen 5-325 mg tablet Active 1 TAB PO Q6H as needed for pain 30 June 28, 2022 Start: 09-28-2021 End: 06-13-2022 take 1 tablet by mouth every six hours as needed for pain Hydrocodone-Acetaminophen 5-325 mg table t Discontinued 1 TAB PO Q6H as needed for pain 40 7 September 28, 2021 June 13, 2022 9:52am dicyclomine hydrochloride 10 mg oral capsule (1 source) Anticholinergic Start: 01-20-2025 take 1 capsule by mouth four times daily dicyclomine (Bentyl) 10 mg capsule Take 1 capsule (10 mg) by mouth 4 times a day. 01/20/2025 Active ethinyl estradiol 0.005 mg / norethindrone acetate 1 mg oral tablet (1 source) Estrogen Start: 05-01-2023 End: 03-07-2024 take 0.2 ug by mouth once daily norethindrone ac-eth estradioL (Femhrt 07/14) 1-5 mg-mcg tablet Take 1 tablet by mouth once daily. 05/01/2023 03/07/2024 Discontinued (Discontinued by another clinician) FLUoxetine 20 mg oral capsule (20 sources) Serotonin Reuptake Inhibitor take 1 capsule by mouth once daily FLUoxetine (PROzac) 20 MG capsule Take 20 mg by mouth Daily Active hydrOXYzine hydrochloride 25 mg oral tablet (2 sources) Antihistamine Start: 06-28-2022 take 1 tablet by mouth once daily Hydroxyzine Hcl 25 mg tablet Active 25 MG PO Daily June 28, 2022 12:00am 1 ml methylPREDNISolone acetate 80 mg/ml injection (2 sources) Corticosteroid Start: 08-01-2024 End: 07-31-2024 methylPREDNISolone acetate (DEPO-Medrol) injection 80 mg Start: 08-01-2024 End: 07-31-2024 80 mg, Injection, Once, On T hu 08/01/24 at 1400, For 1 dose Multivitamin preparation (3 sources) Start: 02-08-2021 take 1 tablet by mouth once daily before dinner Multivitamin Active 1 TAB PO once daily before dinner February 08, 2021 10:52am Start: 02-08-2021 take 1 tablet by evan th once daily before dinner Multivitamin Active 1 TAB PO once daily before dinner February 07, 2021 11:00pm Multivitamin Tablet (1 source) Start: 02-08-2021 take 1 tablet by mouth once daily before dinner Multivitamin Tablet Active 1 TAB PO once daily before dinner February 07, 2021 11:00pm nabumetone 750 mg oral tablet (20 sources) Nonsteroidal Anti-inflammatory Drug Start: 10-14-2024 End: 01-12-2025 take 1 tablet by mouth in the morning nabumetone (Relafen) 750 MG tablet Indications: Arthritis of left knee Take 1 tablet (750 mg) by mouth in the morning and 1 tablet (750 mg) before bedtime. 180 tablet 10/14/2024 01/12/2025 Active Start: 07-29-2024 End: 08-28-2024 take 1 tablet by mouth in the morning nabumetone (Relafen) 750 MG tablet Indications: Chronic pain of left knee , Left foot pain Take 1 tablet (750 mg) by mouth in the morning and 1 tablet (750 mg) before bedtime. 60 tablet 07/29/2024 08/28/2024 Active valsartan 160 mg oral tablet (20 sources) Angiotensin 2 Receptor Cassidy Start: 03-18-2025 take 1 tablet by mouth once daily valsartan (Diovan) 160 mg tablet Indications: Essential hypertension Take 1 tablet (160 mg) by mouth once daily. 30 tablet 11 03/18/2025 Active Start: 09-16-2024 End: 03-18-2025 take 1 tablet by mouth once daily valsartan (Diovan) 160 mg tablet Indications: Essential hypertension TAKE 1 TABLET BY MOUTH EVERY DAY 30 tablet 8 09/16/2024 03/18/2025 Discontinued (Reorder) Start: 03-07-2024 take 1 tablet by evan th once daily valsartan (Diovan) 160 mg tablet Indications: Essential hypertension Take 1 tablet (160 mg) by mouth once daily. 90 tablet 3 03/07/2024 Active Start: 10-04-2022 End: 03-07-2024 take 1 tablet by mouth once daily valsartan (Diovan) 160 mg tablet Take 1 tablet (160 mg) by mouth once daily. 09/06/2023 03/07/2024 Discontinued (Duplicate order) Completed/Discontinued Medications Medication Drug Class(es) Dates Sig (Normalized) Sig (Original) doxycycline monohydrate 50 mg oral capsule (9 sources) Tetracycline-cla ss Drug Start: 05-03-2024 End: 07-29-2024 take 1 capsule by mouth once daily doxycycline (Monodox) 50 MG capsule Indications: Other rosacea Take 1 capsule, by mouth, once daily. 7 days 7 capsule 05/03/2024 07/29/2024 Discontinued (Therapy completed) Start: 02-27-2024 take 1 capsule by mo [facility] once daily doxycycline (Monodox) 50 MG capsule Indications: Other rosacea Take 1 capsule, by mouth, once daily, 30 days 30 capsule 11 02/27/2024 Active DULoxetine 20 mg delayed release oral capsule (16 sources) Serotonin and Norepinephrine Reuptake Inhibitor Start: 02-08-2021 End: 07-29-2024 take 1 capsule by mouth once daily DULoxetine (Cymbalta) [address] capsule Indications: Recurrent major depressive disorder, in partial remission (HCC) (CMS/HCC) Take 1 capsule (20 mg) by mouth Daily 90 capsule 1 09/04/2023 07/29/2024 Discontinued (Therapy completed) medroxyPROGESTERone acetate 5 mg oral tablet (4 sources) Progestin Start: 02-08-2021 End: 09-13-2021 take 1 tablet by mouth once daily in the morning Medroxyprogesterone 5 mg tablet Discontinued 5 MG PO Every morning February 07, 2021 11:00pm September 13, 2021 11:45am Norethindrone-Eth Estradiol 1-5 MG-MCG Oral Tablet (1 source) Start: 02-06-2023 take 1 tablet by mouth once daily Norethindrone-Eth Estradiol 1-5 MG-MCG Oral Tablet TAKE 1 TABLET DAILY. Quantity: 0 Refills: 0 Ordered: 06-Feb-2023 DO Start : 06-Feb-2023 Active Problems Active Problems Problem Classification Problem Date Documented Date Episodic/Chronic Abdominal pain (7 sources) Pelvic and perineal pain; Translations: [Nonspecific abdominal pain] Onset: 10-14-2022 Episodic Administrative/social admission (2 sources) Encounter for pre-employment examination; Translations: [Encounter for pre-employment examination] Onset: 12-25-2024 Episodic Allergic reactions (20 sources) Atopic dermatitis; Translations: [Atopic dermatitis, unspecified] Onset: 11-01-2021 02-28-2023 Chronic Cardiac dysrhythmias (9 sources) Palpitations; Translations: [Palpitations] Onset: 10-14-2022 09-11-2023 Episodic E Codes: Fall (2 sources) Fall; Translations: [Unspecified fall, initial encounter] 07-29-2024 Episodic Essential hypertension (11 sources) Essential hypertension; Translations: [Unspecified essential hypertension] Onset: 10-14-2022 03-07-2024 Chronic Heart valve disorders (3 sources) Heart murmur; Translations: [Undiagnosed cardiac murmurs] Onset: 11-29-2022 Episodic Malaise and fatigue (20 sources) Fatigue; Translations: [Chronic fatigue, unspecified] Onset: 02-21-2023 02-21-2023 Chronic Mood disorders (20 sources) Depressive disorder; Translations: [Depressive disorder, not elsewhere classified] Onset: 02-21-2023 Resolved: 02-28-2023 02-28-2023 Chronic Nutritional deficiencies (9 sources) Vitamin D deficiency; Translations: [Unspecified vitamin D deficiency] Onset: 10-14-2022 09-20-2023 Chronic Osteoarthritis (20 sources) Degenerative joint disease of hand; Translations: [Unilateral primary osteoarthritis of first carpometacarpal joint, left hand] Onset: 02-21-2023 02-21-2023 Chronic Other connective tissue disease (2 sources) Pain in left foot; Translations: [Pain in left foot] 07-29-2024 Episodic Other connective tissue disease (2 sources) Mass of soft tissue of right upper limb; Translations: [Other specified soft tissue disorders] 07-30-2024 Episodic Other inflammatory condition of skin (20 sources) Rosacea; Translations: [Rosacea, unspecified] Onset: 02-21-2023 02-21-2023 Chronic Other lower respiratory disease (5 sources) Dyspnea, unspecified; Translations: [DYSPNEA UNSPECIFIED] Onset: 10-07-2022 Episodic Other nervous system disorders (2 sources) Paresthesia of upper limb; Translations: [Paresthesia of skin] 07-29-2024 Episodic Other nervous system disorders (1 source) Paresthesia of skin; Translations: [Paresthesia of skin] Onset: 07-29-2024 Episodic Other non-traumatic joint disorders (3 sources) Pain in left knee; Translations: [Pain in joint, lower leg] 07-30-2024 Episodic Other nutritional; endocrine; and metabolic disorders (7 sources) Overweight in adulthood with body mass index of 25 or more but less than 30; Translations: [Overweight] Onset: 03-07-2024 03-07-2024 Episodic Other nutritional; endocrine; and metabolic disorders (2 sources) Overweight; Translations: [Overweight] Onset: 03-18-2025 03-18-2025 Episodic Other nutritional; endocrine; and metabolic disorders (2 sources) Body mass index (BMI) 26.0-26.9, adult; Translations: [Body mass index (BMI) 26.0-26.9, adult] Onset: 03-18-2025 Episodic Other nutritional; endocrine; and metabolic disorders (1 source) Overweight; Translations: [Overweight] Onset: 03-18-2025 Episodic Other screening for suspected conditions (not mental disorders or infectious disease) (11 sources) Patient encounter status; Translations: [Screening for lipoid disorders] Onset: 10-14-2022 Resolved: 02-06-2023 03-07-2024 Episodic Residual codes; unclassified (4 sources) History of thoracic surgery; Translations: [Other specified postprocedural states] 09-28-2021 Episodic Comment on above: bilateral, fat graft ingProblem List clean-up per request of Phys. EHR Cmte Residual codes; unclassified (2 sources) Family history of cardiac disorder; Translations: [Family history of ischemic heart disease and other diseases of the circulatory system] Onset: 03-18-2025 03-18-2025 Episodic Residual codes; unclassified (2 sources) Never smoked tobacco; Translations: [Other specified health status] Onset: 03-18-2025 03-18-2025 Episodic Residual codes; unclassified (2 sources) Family history of ischemic heart disease and other diseases of the circulatory system; Translations: [Family history of ischemic heart disease and other diseases of the circulatory system] Onset: 03-18-2025 Episodic Residual codes; unclassified (2 sources) Other specified health status; Translations: [Other specified health status] Onset: 03-18-2025 Episodic Spondylosis; intervertebral disc disorders; other back problems (20 sources) Degeneration of cervical intervertebral disc; Translations: [Other cervical disc degeneration, unspecified cervical region] 08-06-2024 Chronic Unclassified (3 sources) CONTACT W/AND (SUSP) EXPOS COVID-19; Translations: [CONTACT W/AND (SUSP) EXPOS COVID-19] Onset: 03-29-2022 Unclassified (1 source) COUGH, UNSPECIFIED; Translations: [COUGH, UNSPECIFIED] Onset: 03-29-2022 Past or Other Problems Problem Classification Problem Date Documented Date Episodic/Chronic Acquired foot deformities (20 sources) Acquired deformity of left foot; Translations: [Other acquired deformities of left foot] Onset: 02-21-2023 02-21-2023 Episodic Acquired foot deformities (20 sources) Acquired deformity of right foot; Translations: [Other acquired deformities of right foot] Onset: 02-21-2023 02-21-2023 Episodic Fever of unknown origin (1 source) Fever, unspecified; Translations: [FEVER UNSPECIFIED] Onset: 03-29-2022 Episodic Headache; including migraine (20 sources) Headache disorder; Translations: [Other headache syndrome] Onset: 02-21-2023 02-21-2023 Episodic Neoplasms of unspecified nature or uncertain behavior (2 sources) Neoplastic disease; Translations: [Neoplasm of unspecified behavior of bone, soft tissue, and skin] 02-27-2024 Episodic Other circulatory disease (1 source) History of clinical finding in subject; Translations: [Personal history of other diseases of circulatory system] Resolved: 02-06-2023 Episodic Other diseases of veins and lymphatics (20 sources) Disorder of vein of lower extremity; Translations: [Venous insufficiency (chronic) (peripheral)] Onset: 02-21-2023 02-21-2023 Episodic Other lower respiratory disease (5 sources) Dyspnea; Translations: [Other respiratory abnormalities] Onset: 09-11-2023 09-11-2023 Episodic Other lower respiratory disease (1 source) Other specified respiratory disorders; Translations: [OTHER SPEC RESPIRATORY DISORDERS] Onset: 03-29-2022 Episodic Other nutritional; endocrine; and metabolic disorders (20 sources) Excessive thirst; Translations: [Polydipsia] Onset: 02-21-2023 02-21-2023 Episodic Other skin disorders (2 sources) Seborrheic keratosis; Translations: [Other seborrheic keratosis] 02-27-2024 Episodic Residual codes; unclassified (3 sources) Edema of lower extremity; Translations: [Edema] Resolved: 02-06-2023 Episodic Residual codes; unclassified (20 sources) Sleep disorder; Translations: [Sleep disorder, unspecified] Onset: 02-21-2023 02-21-2023 Episodic Unclassified (3 sources) Never smoked tobacco; Translations: [Never a smoker] Unclassified (1 source) CONTACT W/AND (SUSP) EXPOS COVID-19; Translations: [CONTACT W/AND (SUSP) EXPOS COVID-19] Onset: 03-28-2022 Results Test Name Value Interpretation Reference Range Facility QUANTIFERON TB GOLD PLUS 1 T UBEon 12-27-2024 QUANTIFERNON INCUBATION Incubation performed. [facility] Comment on above: Performed By: #### L KYLAH DAY LMMR #### [place] [address] QUANTIFERON-TB GOLD PLUS Negative [facility] Comment on above: Result Comment: Refe rence range: Negative (NOTE) No response to M tuberculosis antigens detected. Infection with M tuberculosis is unlikely, but high risk individuals should be considered for additional testing (ATS/IDSA/CDC Clinical Practice Guidelines, 2017). The reference range is an Antigen minus Nil result of <0.35 IU/mL. Chemiluminescence immunoassay methodology PERFORMED AT [facility] Performed By: #### L KYLAH DAY LMMR #### [place] [address] RFLX QUANTIFERON-TB GOLD PLU Son 12-27-2024 QUANTIFERON CRITERIA Comment [facility] Comment on above: Result Comment: (NOT E) QuantiFERON-TB Gold Plus is a qualitative indirect test for M tuberculosis infection (including disease) and is intended for use in conjunction with risk assessment, radiography, and other medical and diagnostic evaluations. The QuantiFERON-TB Gold Plus result is determined by subtracting the Nil value from either TB antigen (Ag) value. The Mitogen tube serves as a control for the test. Performed By: #### L KYLAH DAY, LMMR #### [place] [address] QUANTIFERON MITOGEN VALUE >10.00 [facility] Comment on above: Result Comment: Unit : IU/mL PERFORMED AT [facility] Performed By: #### L QAlondra HERNANDEZQMARY, LMMR #### Testing performed at [address] [address] QUANTIFERON NIL VALUE 0.04 [facility] Comment on above: Result Comment: Unit : IU/mL Performed By: #### L KYLAH DAY, LMMR #### Testing performed at [address] [address] QUANTIFERON TB1 AG VALUE 0.03 [facility] Comment on above: Result Comment: Unit : IU/mL Performed By: #### L QAlondra HERNANDEZQMARY, LMMR #### Testing performed at [address] [address] QUANTIFERON TB2 AG VALUE 0.03 [facility] Comment on above: Result Comment: Unit : IU/mL Performed By: #### L SHAY, AlondraQMARY, LMMR #### Testing performed at [address] [address] MEASLES,MUMP,RUBELLAon 12-26 MUMPS ABS, IGG >300.0 [facility] Comment on above: Result Comment: Refe rence range: Immune >10.9 Unit: AU/mL (NOTE) Negative <9.0 Equivocal 9.0 - 10.9 Positive >10.9 A positive result generally indicates past exposure to Mumps virus or previous vaccination. PERFORMED AT [facility] Performed By: #### L KYLAH DAY, LMMR #### Testing performed at [address] [address] RUBELLA AB, IGG 12.40 [facility] Comment on above: Result Comment: Refe rence range: Immune >0.99 Unit: index (NOTE) Non-immune <0.90 Equivocal 0.90 - 0.99 Immune >0.99 Performed By: #### L QFIT, ZQMARY, LMMR #### Testing performed at [address] [address] RUBEOLA AB, IGG >300.0 [facility] Comment on above: Result Comment: Refe rence range: Immune >16.4 Unit: AU/mL (NOTE) Negative <13.5 Equivocal 13.5 - 16.4 Positive >16.4 Presence of antibodies to Rubeola is presumptive evidence of immunity except when acute infection is suspected. Performed By: #### L QMARY, KYLAH, JESSICA #### Testing performed at [facility] [address] [place] [address] [place] [address] HEP B SURFACE ABon HEP B SURFACE AB Negative Normal NEGATIVE [facility] Comment on above: Result Comment: Clinical Interpretation of Immune Status Negative: patient is considered to be not immune to infection with HBV Intermediate: unable to determine if anti-HBs is present at levels consistent with immunity Positive: anti-HBs detected, patient is considered to be immune to infection with HBV HEP C ABon 12-25-2024 HEP C AB Negative Normal NEGATIVE [facility] PAP [id number] 10-16-2024 Cytology report Cyto stain Doc (Cvx/Vag) Note Invalid Interpretation Code [facility] Comment on above: Result Comment: TEST S RESULT FLAG UNITS REF RANGE LAB Clinician Provided Cytology Information Source.............[employer] No. of containers..01 ThinPrep Vial DIAGNOSIS: 01 NEGATIVE FOR INTRAEPITHELIAL LESION OR MALIGNANCY. THIS SPECIMEN WAS RESCREENED PART OF OUR DIALYSIS SOCIAL WORKER PROGRAM. Specimen adequacy: 01 Satisfactory for evaluation. Endocervical and/or squamous metaplastic cells (endocervical component) are present. Performed by: 02 Mary Hart, International Trade Compliance Manager (ASCP) QC reviewed by: 01 Poppy Abreu, Supervisory International Trade Compliance Manager (ASCP) . 01 Note: Note 01 The Pap smear is a screening test designed to aid in the detection of premalignant and malignant conditions of the uterine cervix. It is not a diagnostic procedure and should not be used as the sole means of detecting cervical cancer. Both false-positive and false-negative reports do occur. Test Methodology: Note 01 This liquid based ThinPrep(R) pap test was screened with the use of an image guided system. FLAG LEGEND: L-Low Normal,H-High Normal,LL-Alert Low,HH-Alert High <-Panic Low,>-Panic High,A-Abnormal,AA-Critical Abnormal Performed at: [address] [facility] [id number] Niesha Hyde MD, 02 [facility] [address] [place] [id number] Heron Ramirez MD, Performed By: #### 3 [id number] #### [facility] [address] [place] [address] HPV 16+18+31+33+35+39+45+5 1+52+56+58+59+66+68 DNA Probe+sig amp Ql (Cvx) Negative Invalid Interpretation Code Negative [facility] Comment on above: Result Comment: This nucleic acid amplification test detects fourteen high-risk HPV types (16,18,31,33,35,39,45,51,52,56,58,59,66,68) without differentiation. Performed at: [facility] [id number] MD Barrett Scherer Performed at: =[facility] [id number] MD Barrett Scherer Performed By: #### 3 [id number] #### [facility] [address] [place] [address] PAP [id number] 10-09-2024 Collection [employer] BRUSH-SPATULA Normal [facility] Comment on above: Performed By: #### [id number] #### [facility] [address] [place] [address] Gynecological Body Site ENDOCERVIX Normal [facility] Comment on above: Performed By: #### [id number] #### [facility] [address] [place] [address] BI MAMMOGRAM SCREENING TOMOS YNTHESIS BILATERALon 07-29-2024 BI MAMMOGRAM SCREENING TOMOSYNTHESIS BILATERAL This is a summary report. The complete report is available in the patient's medical record. If you cannot access the medical record, please contact the sending organization for a detailed fax or copy. Examination: BI MAMMOGRAM SCREENING TOMOSYNTHESIS BILATERAL Clinical [...] changes. Axillary lymph nodes are noted bilaterally. IMPRESSION: Impression: No specific evidence of malignancy seen in either breast. BIRADS 2 - Benign Findings DENSITY: The breasts are heterogeneously dense, which may obscure small masses. FOLLOW-UP: Routine Screening Mammogram ELECTRONICALLY SIGNED BY: Sixto Tam M.D. Normal Not Available X-ray reportOrdered By: Giorgi Bose on 07-29-2024 Study report [facility] [place] [address] [place] [address] XRay Report Signed Patient: Anushka Perdomo MR#: [id number] : 1965 Acct:[id number] Age/Sex: 59 / F ADM Date: 5 Loc: ICXD Room: Type: [facility] Attending Dr: Arsenio Baxter MD Copies to: Arsenio Baxter MD~ Ordering Provider: Arsenio Baxter MD Date of Service: 07/29/24 XR/XR cerv spine AP/LAT/FLX/EXT: R20.2 ([id number]) XR/XR knee LT 4V*: M25.562,G89.29 AP with [...] Tom Bose M.D.07/29/2024 3:48 PM Dictation Location: [place] [address] Transcribed By: [facility] 07/29/24 1548 Dictated By: Tom Bose DO 07/29/24 1544 Signed By: 07/29/24 1548 [facility] XR knee LT 4V*on 07-29-2024 XR knee LT 4V* [facility] [place] [address] [place] [address] XRay Report Signed Patient: Anushka Perdomo MR#: [id number] : 1965 Acct:[id number] Age/Sex: 59 / F ADM Date: 07/29/24 Loc: ICXD Room: Type: [facility] Attending Dr: Arsenio Baxter MD Copies to: Arsenio Baxter MD Ordering Provider: Arsenio Baxter MD Date of Service: 07/29/24 XR/XR cerv spine AP/LAT/FLX/EXT: R20.2 ([id number]) XR/XR knee LT 4V*: M25.562,G89.29 AP with [...] Tom Bose M.D.07/29/2024 3:48 PM Dictation Location: [place] [address] Transcribed By: [facility] 07/29/24 1548 Dictated By: Tom Bose DO 07/29/24 1544 Signed By: 07/29/24 1548 Normal [facility] US Extremity Non-Vascular Li mited Righton 07-04-2024 US Extremity Non-Vascular Limited Right Exam Date/Time: 07/04/2024 12:13 EST Reason for Exam: Evaluate for right axillary mass, unable to detect on physical palpation;Mass Report IMPRESSION: NEGATIVE STUDY. CLINICAL HISTORY: Mass, Evaluate for right axillary mass, unable to detect on physical palpation COMPARISON: NONE. FINDINGS: Directed sonographic interrogation was performed over the region of clinical concern within the right axilla. No cystic and no solid lesions are identified. Normal size. Lymph nodes are demonstrated. Color-flow is without anomaly. 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 female here for enlarged lymph nodes Dr Crockett referring CT done 06/15/2024 Diagnostic mammogram done 2015 Screening mammogram done 2017 She states she has fullness and right sided tenderness She states she feels the lump twinging s/p History of Present Illness 59-year-old female referred to us by [facility] for painful enlarged axillary lymph nodes, most recent CT scan of abdomen pelvis from June 15, 2024 shows no acute intra-abdominal process identified. Her abdominal and pelvic lymph nodes were normal in size. Per notes seen on June 10, 2024 patient noted enlarged tender lymph nodes in the right axilla prompting referral to general surgery. Her most recent mammogram on record is from April 04, 2018 it was a BI-RADS 1. The patient will occasionally report right axillary pain and believes she feels 2 nodules when shaving her underarms. Review of Systems PHQ Score Initial Depression Screen Score: 2 SCORE Physical Exam Vitals & Measurements HR: 63(Peripheral) BP: 114/76 HT: 66 in HT: 167 cm WT: 73 kg WT: 160.937 lb BMI: 26.18 Bilateral axillary exam: There are no abnormally enlarged masses or lymph nodes in the left or the right axilla Assessment/Plan 1. Mass of right axilla (R22.31: Localized swelling, mass and lump, right upper limb) Ultrasound right axilla will call with results Ordered: E&M of New Patient Low 30-44 Min 98002 US Extremity Non-Vascular Limited Right Portions of this record may have been created with voice recognition artificial intelligence software, specifically [employer] and or [employer]. Substitutions may have occurred due to the inherent limitations of voice recognition and artificial intelligence software. Follow-up No qualifying data available Problem List/Past Medical History Ongoing Blood in stool Depressive disorder Dyspnea Essential hypertension Heart murmur LLQ pain Mass of right axilla Vitamin D deficiency Historical Edema of lower extremity Procedure/Surgical History section, Colonoscopy. Medications dicyclomine 10 mg Cap, 10 mg= 1 cap(s) fluoxetine, 20 mg, Oral, Daily minocycline, 50 mg, Oral, Daily, PRN simethicone 180 mg oral capsule, 180 mg= 1 cap(s), Oral, QID valsartan 160 mg Tab Allergies sulfa drugs (Unknown) Social History Alcohol Current. Wine. 1-2 times per week., 06/05/2024 Substance Abuse Never., 06/05/2024 Tobacco Never (less than 100 in lifetime) Tobacco Use:. Never Smokeless Tobacco Use:. Cigarettes, 07/01/2024 Family History Heart disease: Father. Hyperlipidemia: Mother. Immunizations Vaccine Date Status Comments influenza, unspecified formulation 04/05/2024 Given SARS-CoV-2 (COVID-19) mRNA-1273 vaccine 04/05/2024 Given influenza virus vaccine, inactivated 04/05/2024 Recorded zoster vaccine, inactivated 08/18/2023 Recorded zoster vaccine, inactivated 05/08/2023 Recorded SARSCoV2 mRNA(cotkwqacu-wuca-j ucros) vac 02/21/2022 Recorded 2024-02-20: TPV50 SARS-CoV-2 (COVID-19) mRNA BNT-162b2 vax 05/21/2021 Recorded 2024-02-20: TPV23 SARS-CoV-2 (COVID-19) mRNA BNT-162b2 vax 09/11/2020 Recorded SARS-CoV-2 (COVID-19) mRNA BNT-162b2 vax 08/21/2020 Recorded diphtheria/pertussis, acel/tetanus adult 04/20/2017 Recorded diphtheria/pertussis, acel/tetanus adult 11/25/2014 Recorded measles/mumps/rubella virus vaccine 11/25/2014 Recorded Normal [facility] Comment on above: Result Comment: Elec tronically Signed By: Deepak SANDRA, Juan Corea\Date and Time Signed: 07/01/24 14:[address] Abdomen/Pelvis w/ Contras ton 06-16-2024 CT Abdomen/Pelvis w/ Contrast Exam Date/Time: 06/15/2024 09:12 EST Reason for Exam: R10.32;Pain Report IMPRESSION: NO ACUTE OR SIGNIFICANT INTRA-ABDOMINAL PROCESS IDENTIFIED. EXAM: CT Abdomen/Pelvis w/ Contrast DATE: 06/15/2024 8:46 AM CLINICAL HISTORY: Pain, R10.32. COMPARISON: None available. TECHNIQUE: Spiral imaging was obtained of the abdomen and pelvis after the uneventful infusion of approximately 100 mL of Isovue 300 contrast. Oral contrast was used for bowel opacification. All CT scans at this facility use dose modulation, iterative reconstruction, and/or weight based dosing when appropriate to reduce radiation dose to as low as reasonably achievable. Unless otherwise stated, incidental findings identified in this report do not require routine follow-up imaging. FINDINGS: Liver: No enlargement, significant fatty infiltration, suspicious mass or lesion. Biliary: The gallbladder is unremarkable. No abnormal biliary ductal dilatation. Pancreas: No suspicious mass, organized fluid collection, surrounding inflammation, or abnormal pancreatic ductal dilatation. Spleen: Unremarkable. Adrenals: Unremarkable. Kidneys: No hydronephrosis, significant urinary tract calculi, or suspicious mass. GI tract: No abnormal dilation, wall thickening, or suspicious mass. No significant diverticulosis. Normal appendix. Lymph nodes: No pathologically enlarged lymph nodes. Vasculature: No aneurysm or dissection. Mesentery/peritoneum/ retroperitoneum: No ascites, organized fluid collection, inflammatory changes, or suspicious mass. Pelvis: The urinary bladder, uterus, and adnexa appear within normal limits. Musculoskeletal: No acute osseous findings identified. Moderate degenerative changes of the lumbosacral junction Lower thorax: Noncontributory. Report Ordering Provider: Aurelia Crockett FINAL REPORT Dictated: 06/16/2024 9:10 am Shelton Reich MD Signed (Electronic Signature): 06/16/2024 9:10 am Signed by: Shelton Reich MD Transcribed by: LISA Technologist: MANUEL Technical Comments GFR (mL/min/1/73m2) na Contrast: Isovue 300 Contrast amount in ml's: 100 Rectal Contrast Given? No Oral contrast amount in ml's: 900 Normal [facility] Gastroenterology Office/Clin ic Noteon 06-10-2024 Gastroenterology Office/Clinic Note Gastroenterology Office/Clinic Note Chief Complaint abd pain, blood in stools, nausea HPI Staff Patient is a(n) 59 year old female who presents today for a follow up to Colonoscopy on 03/05/24. Pt c/o blood in stools, abdominal cramping and nausea. When did symptoms start? had it, but last week was the worst. Any improving/worsening factors? No. Did pt try IBgard? Effective? Tried it, but did not work. 5 year colon recall placed. Denies blood thinners. Denies GLP-1 agonists. Last visit 02/21/24 w/Dr. Crockett: Assessment/Plan 1. LLQ pain (R10.32: Left lower [...] we need to rule out other etiologies Colonoscopy: 1. Small internal hemorrhoids on retroflexion. 2. Moderate sigmoid diverticulosis. 3. 2 sessile polyps in the cecum, 3-7 mm in size, resected with cold snare completely and retrieved 4. Normal examined TI Recommendations: Repeat colonoscopy in 5 years. Pathology: Final Diagnosis ( Modified ) COLON, CECUM, POLYPECTOMY: - Tubular adenoma Review of Systems PHQ Score Initial Depression Screen Score: 0 SCORE Physical Exam Vitals & Measurements HR: 63(Peripheral) RR: 14 BP: 114/78 HT: 66 in HT: 167 cm WT: 72 kg WT: 158.733 lb BMI: 25.82 Assessment/Plan 1. LLQ pain (R10.32: Left lower quadrant pain) Described right lower and left lower quadrant pain, sometimes right upper quadrant and diffuse pain, improved with IBgard, denies any constipation or diarrhea We discussed to continue IBgard as needed, add simethicone and Bentyl as needed, she also described bloating first thing in the morning she denies drinking milk If that does not help we will discuss low FODMAP diet and possible breath testing and rifaximin Will check also CBC and CMP, discussed also imaging with patient, patient prefers CT abdomen and pelvis with IV contrast 2. Blood in stool (K92.1: Melena) She had episodes of blood in stool with clots last week, she had similar episodes before, differential include hemorrhoids related bleeding, diverticular bleed, infection, the episode resolved after 1 episode, likely diverticular bleed presentation Will proceed with CBC and CMP She had a colonoscopy in February 2024, 2 small TA's Orders: peppermint oil, 180 mg = 2 cap(s), Oral, BID, # 60 cap(s), Refills(s) 3, Pharmacy: [facility], 167, cm, 02/21/24 8:16:00 EDT, Height/Length Dosing, 73.6, kg, 02/21/24 8:16:00 EDT, Weight Dosing Follow-up No qualifying data available Problem List/Past Medical History Ongoing Blood in stool Depressive disorder Dyspnea Essential hypertension Heart murmur LLQ pain Vitamin D deficiency Historical Edema of lower extremity Procedure/Surgical History section, Colonoscopy. Medications fluoxetine, 20 mg, Oral, Daily minocycline, 50 mg, Oral, Daily, PRN valsartan 160 mg Tab Allergies sulfa drugs (Unknown) Social History Alcohol Current. Wine. 1-2 times per week., 06/05/2024 Substance Abuse Never., 06/05/2024 Tobacco Never (less than 100 in lifetime) Tobacco Use:., 06/05/2024 Never (less than 100 in lifetime) Tobacco Use:., 06/05/2024 Family History Heart disease: Father. Hyperlipidemia: Mother. Immunizations Vaccine Date Status Comments influenza virus vaccine, inactivated 04/05/2024 Recorded zoster vaccine, inactivated 08/18/2023 Recorded zoster vaccine, inactivated 05/08/2023 Recorded SARSCoV2 mRNA(olivia jimenez) vac 02/21/2022 Recorded 2024-02-20: TPV50 SARS-CoV-2 (COVID-19) mRNA BNT-162b2 vax 05/21/2021 Recorded 2024-02-20: TPV23 SARS-CoV-2 (COVID-19) mRNA BNT-162b2 vax 09/11/2020 Recorded SARS-CoV-2 (COVID-19) mRNA BNT-162b2 vax 08/21/2020 Recorded diphtheria/pertussis, acel/tetanus adult 04/20/2017 Recorded diphtheria/pertussis, acel/tetanus adult 11/25/2014 Recorded measles/mumps/rubella virus vaccine 11/25/2014 Recorded Pt also c/o enlarged/tender lymph nodes in the right armpit. Per Dr. Crockett pt is to be referred to [facility] Comment on above: Result Comment: Elec tronically Signed By: Brenda Solorzano I\.br\Date and Time Signed: 06/10/24 12:13 EST ALL CBC WITH AUTO DIFFon BASOPHILS ABSOLUTE AUTO 0 [facility] Basophils/100 WBC (Bld) 0.6 % 0.2 - 2.0 % [facility] Eosinophils/100 WBC (Bld) 4 % 0.9 - 7.0 % [facility] Erythrocyte distribution width (RBC) [Ratio] 12.9 % 11.0 - 15.0 % [facility] Hematocrit (Bld) [Volume fraction] 39.4 % 36.0 - 48.0 % [facility] Hemoglobin (Bld) [Mass/Vol] 12.9 g/dL 12.0 - 16.0 g/dL [facility] IMMATURE GRANULOCYTES ABS AUTO 0.01 [facility] Immature granulocytes/100 WBC (Bld) 0.2 % 0.0 - 0.5 % [facility] LYMPHOCYTES ABSOLUTE AUTO 2.3 [facility] Lymphocytes/100 WBC (Bld) 36.5 % 20.5 - 60.0 % [facility] MCH (RBC) [Entitic mass] 29.7 pg 26.7 - 34.0 pg [facility] MCHC (RBC) [Mass/Vol] 32.7 g/dL 29.9 - 35.2 g/dL [facility] MCV (RBC) [Entitic vol] 90.6 fL 81.0 - 99.0 fL [facility] MONOCYTES ABSOLUTE AUTO 0.5 [facility] Monocytes/100 WBC (Bld) 8 % 1.7 - 12.0 % [facility] NEUTROPHILS ABSOLUTE AUTO 3.2 [facility] Neutrophils/100 WBC (Bld) 50.7 % 43.0 - 75.0 % [facility] Platelet mean volume (Bld) [Entitic vol] 9.9 fL 9.5 - 13.5 fL [facility] TBH EO # 0.3 [facility] TBH PLT 386 [facility] TB RBC 4.35 [facility] TB WBC 6.2 [facility] Ambulatory Visit Summaryon 1 08-05-2023 Ambulatory Visit Summary Ambulatory Visit Summary SUSANNEANUSHKA HOANG :1965 Visit Date:06/05/2024 Ambulatory Visit Instructions Your Diagnosis LLQ pain Blood in stool Your Care Team Attending Physician - Bon SANDRA, Aurelia Gonzales Primary Care Physician - SAHIL SANDRA, ARSENIO Tian This Is Your Medications List dicyclomine (Bentyl 10 mg Cap) simethicone (simethicone 180 mg oral capsule) Contact prescribing physician if questions or concerns fluoxetine minocycline valsartan (valsartan 160 mg Tab) Procedures Performed section, Colonoscopy. Discharge Vitals Heart Rate (Peripheral) 63 Respiratory Rate 14 Blood Pressure 114/78 Height 167 cm Height 66 in Weight 72 kg Weight 158.733 lb BMI 25.82 What to do next You Need to Complete the Following CBC w/ Auto Diff, Blood, Routine collect, 06/05/24, Order for future visit, Lab Collect, LLQ pain Blood in stool, Print Label By Order Location Comprehensive Metabolic Panel, Blood, Routine collect, 06/05/24, Order for future visit, Lab Collect, LLQ pain, Print Label By Order Location CT Abdomen/Pelvis w/ Contrast, 06/05/24, Routine, Order for future visit, Transport Mode: Ambulatory, Reason: Pain, No, No, LLQ pain Blood in stool, pp_set_radiology_subs pecialty, [facility] Medications What How Much When Why Instructions New dicyclomine (Bentyl 10 mg Cap) 1 Capsules By Mouth 4 times a day LLQ pain Blood in stool Duration: 14 Days Pickup at [facility] New simethicone (simethicone 180 mg oral capsule) 1 Capsules By Mouth 4 times a day LLQ pain Blood in stool Pickup at [facility] Unchanged fluoxetine 20 Milligram By Mouth Every day Contact prescribing physician if questions or concerns Unchanged minocycline 50 Milligram By Mouth Every day as needed for Other (see comment) Contact prescribing physician if questions or concerns Unchanged valsartan (valsartan 160 mg Tab) Contact prescribing physician if questions or concerns Pharmacy Information [facility]: [address], [place] [id number] [phone] Allergies sulfa drugs (Unknown) Problems Ongoing - [...] for choosing us for your care. Normal [facility] Patient Letter FTMCon 2023 [place] [facility] [place] [facility] March 18, 2024 ANUSHKA PERDOMO [address] [place] [address] : 1965 Below is a summary of [...] letter prior to your next due date. [facility] [phone] Normal [facility] Reminderson 03-18-2024 Reminders Reminders From: Brenda Solorzano I To: [facility] - Reminders/Recalls; Sent: 03/18/2024 13:55:07 EDT Show up: 12/08/2028 13:54:00 EDT Subject: Colonoscopy recall Due Date/Time: 03/05/2029 13:55:00 EDT Reminder/Recall [address] Crockett 03/05/24 Normal [facility] ALL CBC WITH AUTO DIFFon BASOPHILS ABSOLUTE AUTO 0.1 [facility] Basophils/100 WBC (Bld) 0.8 % 0.2 - 2.0 % [facility] Eosinophils/100 WBC (Bld) 3.7 % 0.9 - 7.0 % [facility] Erythrocyte distribution width (RBC) [Ratio] 12.8 % 11.0 - 15.0 % [facility] Hematocrit (Bld) [Volume fraction] 38.8 % 36.0 - 48.0 % [facility] Hemoglobin (Bld) [Mass/Vol] 12.7 g/dL 12.0 - 16.0 g/dL [facility] IMMATURE GRANULOCYTES ABS AUTO 0.01 [facility] Immature granulocytes/100 WBC (Bld) 0.1 % 0.0 - 0.5 % [facility] LYMPHOCYTES ABSOLUTE AUTO 2.3 [facility] Lymphocytes/100 WBC (Bld) 31.1 % 20.5 - 60.0 % [facility] MCH (RBC) [Entitic mass] 29.5 pg 26.7 - 34.0 pg [facility] MCHC (RBC) [Mass/Vol] 32.7 g/dL 29.9 - 35.2 g/dL [facility] MCV (RBC) [Entitic vol] 90.0 fL 81.0 - 99.0 fL [facility] MONOCYTES ABSOLUTE AUTO 0.5 [facility] Monocytes/100 WBC (Bld) 6.4 % 1.7 - 12.0 % [facility] NEUTROPHILS ABSOLUTE AUTO 4.2 [facility] Neutrophils/100 WBC (Bld) 57.9 % 43.0 - 75.0 % [facility] Platelet mean volume (Bld) [Entitic vol] 10.1 fL 9.5 - 13.5 fL [facility] TBH EO # 0.3 [facility] TBH PLT [address] [facility] RBC 4.31 [facility] WBC 7.3 [facility] Surgical Pathology Reporton 03-12-2024 Surgical Pathology Report [address] [address]- Surgical Pathology Report Collected Date/Time: 03/05/2024 13:30 EDT Pathologist: Taras Chao MD Date/Time: 03/05/2024 18:00 EDT Bon SANDRA, Aurelia [...] is entirely submitted in one cassette. (DC) DC:[facility] Microscopic Description Microscopic examination performed unless gross only specified. Normal [facility] Comment on above: Performed By: #### [id number] #### [facility] [address] [place] [address] No Panel Informationon 02-26 Type of biopsy: tangential Informed consent: discussed and consent obtained Informed consent comment: The risks and benefits of the biopsy were discussed. Risks include but are not limited to bleeding, infection, scarring, pain, and nerve damage. An opportunity to ask questions prior to the procedure was permitted and all questions were answered. Patient was prepped and draped in usual sterile fashion: area cleansed with alcohol. Anesthesia: the lesion was anesthetized in a standard fashion Anesthetic: 1% lidocaine w/ epinephrine 1-100,000 buffered w/ 8.4% NaHCO3 Instrument used: DermaBlade Hemostasis achieved with: electrodesiccation Outcome: patient tolerated procedure well Outcome comment: The specimen was placed in a prelabeled formalin container to be sent for pathology Post-procedure details: sterile dressing applied and wound care instructions given Post-procedure details comment: Emphasized need to contact clinic for any signs of infection, uncontrollable bleeding, or complications. Dressing type: bandage Additional details: Photo taken Amount of lidocaine used: 0.5 cc [facility] Ambulatory Visit Summaryon 0 02-21-2024 Ambulatory Visit Summary Ambulatory Visit Summary ANUSHKA PERDOMO Monik :1965 Visit Date:02/21/2024 Ambulatory Visit Instructions Your [...] Pharmacy Information [facility]: [address], [place] [phone] Allergies sulfa drugs (Unknown) Problems Ongoing - [...] for choosing us for your care. Normal [facility] Gastroenterology Office/Clin ic Noteon 02-21-2024 [...] sigmoid polyp status post removal with the [employer] biopsy forceps. Recommendations: Repeat colonoscopy:: In 3 [...] Recorded zoster vaccine, inactivated 05/08/2023 Recorded SARSCoV2 mRNA(olivia jimenez) vac 02/21/2022 Recorded 2024-02-20: TPV50 SARS-CoV-2 (COVID-19) mRNA BNT-162b2 vax 05/21/2021 Recorded 2024-02-20: TPV23 SARS-CoV-2 (COVID-19) mRNA BNT-162b2 vax 09/11/2020 Recorded SARS-CoV-2 (COVID-19) mRNA BNT-162b2 vax 08/21/2020 Recorded diphtheria/pertussis, acel/tetanus adult 04/20/2017 Recorded diphtheria/pertussis, acel/tetanus adult 11/25/2014 Recorded measles/mumps/rubella virus vaccine 11/25/2014 Recorded Normal [facility] Comment on above: Result Comment: Elec tronically Signed By: Bon SANDRA, Aurelia Gonzales\.br\Date and Time Signed: 02/21/24 08:34 EDT C Urineon 01-20-2024 Bacteria identified Cx Nom (U) Microbiology PROCEDURE: Urine Culture [R1] SOURCE: U CleanCatch BODY SITE: COLLECTED DATE/TIME: 01/17/2024 12:00 EDT RECEIVED DATE/TIME: 01/18/2024 18:21 EDT START DATE/TIME: 01/18/2024 18:21 EDT FREE TEXT SOURCE: Micah SANDRA, Shankar Obrien MD, Shankar Baker FINAL REPORTS Final Report [] Verified Date/Time: 01/20/2024 09:48 EDT 1,000 cfu/ml Mixed skin contaminants Performing Locations R1: This test was performed at: [facility], [address] [place] [address], [id number] , , [facility] Comment on above: Performed By: #### [id number] #### [facility] [address] [place] [id number] Office Visit (Cardiology)on 02-06-2023 Follow-up visit Diagnoses/Problems Assessed Primary hypertension (401.9) (I10) Overweight with body mass index (BMI) of 25 to 25.9 in adult (278.02,V85.21) (E66.3,Z68.25) Never a smoker Dyspnea (786.09) (R06.00) Orders Overweight with body mass index (BMI) of 25 to 25.9 in adult Healthy Weight Tips; Status:Complete - Retrospective Authorization; Done: [id number] Some eating tips that can help you lose weight.; Status:Complete - Retrospective Authorization; Done: [id number] SocHx: Never a smoker Tobacco Use Screening; Status:Complete; Done: [id number] Patient Instructions Please bring all medicines, vitamins, [...] me in the office in annual basis. Assessment/recommenda tions: 1?history of nonspecific fatigue and dyspnea with [...] negative for complaint. Vitals Vital Signs Recorded: 06Feb2023 01:13PM Heart Rate84, L Radial Nebwppyo642, LUE, Sitting Zkkkkdzja66, LUE, Sitting Height5 ft 6 in Ixylkf204 lb BMI Yuzfgwdvjg60.99 kg/m2 BSA Calculated1.82 Tobacco Useb) No Falls [...] time . Signatures Electronically signed by : Ernie Mcpherson MD; Feb 06 2023 2:15PM EST (Author) Normal [facility] Tobacco Screening.on 023 Fall risk assessment a) No falls within the last year [facility] 250 DO Work Phone: Tobacco use status CP b) No [facility] y 250 DO Work Phone: Echocardiogramon 11-29-2022 Echocardiography [facility] [address] [place] [address], [address] [place] [address] TRANSTHORACIC ECHOCARDIOGRAM REPORT Patient Name: ANUSHKA Robert Physician: [id number] Ernie Mcpherson MD, [facility] Study Date: 11/29/2022 Referring ERNIE MCPHERSON Physician: MRN/PID: [id number] PCP: Arsenio Baxter Accession/Order#: [id number] [facility] Location: Date of : 1965 Fellow: Gender: F Nurse: Admit Date: Spinning Frame Fixer: Patricia Delgado RDCS, RVT Height: 167.64 cm CC Report to: Weight: 73.03 kg Study Type: Echocardiogram BSA: 1.82 m2 Blood Pressure: 132 /84 mmHg Diagnosis/ICD: R06.00-Dyspnea, unspecified; R01.1-Cardiac murmur, unspecified Indication: Edema, HTN, Palpitations, Overweight Procedure/CPT: Echo Complete w Full Doppler-[id number] Study Detail: The following Echo studies were [...] 1.1 m/s (0.6-0.9m/s) PV Max P.8 mmHg [id number] Ernie Mcpherson MD, [facility] Electronically signed on 12/01/2022 at 9:15:41 AM Final Normal [facility] Cardiac Stress Teston 2022 Cardiac Stress Test [address], [address], [place] [address] Exercise Stress Test Patient Name: ANUSHKA Ordering Physician: [id number] Ernie Mcpherson MD [facility] Study Date: 10/28/2022 Reading Physician: [id number] Ernie Mcpherson MD, [facility] MRN/PID: [id number] Supervising [id number] Goldie Waldron Physician: Accession/Order#: [id number] Referring Physician: ERNIE MCPHERSON Date of : 1965 PCP: Gender: F Fellow: Height: 167.64 cm Nurse: Mayra Arechiga RN Weight: 73.03 kg Spinning Frame Fixer: N/A BSA: 1.82 m2 Technologist: BMI: 25.99 kg/m2 Additional Staff: Age: 57 years cc report to: Patient Location: cc report to: [id number] Ernie Mcpherson MD, [facility] Study Type: Cardiac Stress Test Diagnosis/ICD: R01.1-Cardiac murmur, unspecified; R06.00-Dyspnea, unspecified Indication: Heart Murmur and Dyspnea Procedure/CPT: Stress Test Supervision-[id number] Falls Risk: Low: Patient has low risk [...] normal sinus rhythm. Stress Stage Data: + +-- -+------+-------+ HR Sys BP Avery BP + +-- -+------+-------+ Baseline Resting 64 110 64 + +-- -+------+-------+ Baseline Standing 65 100 60 + +-- -+------+-------+ Stage I 111 120 64 + +-- -+------+-------+ Stage II 120 140 60 + +-- -+------+-------+ Stage III 144 160 80 + +-- -+------+-------+ + +---+--- ---+-------+ HR Sys BP Avery BP + +---+--- ---+-------+ Recovery I 138 120 60 + +---+--- ---+-------+ Recovery II 130 156 64 + +---+--- ---+-------+ Recovery III 88 160 70 + +---+--- ---+-------+ Recovery IV 80 130 74 + +---+--- ---+-------+ Summary: 1. 1_normal graded exercise tolerance test [...] treadmill score of 7+ which is favorable. [id number] Ernie Mcpherson MD, FACC Electronically signed on 10/31/2022 at 6:20:56 PM Final Normal [facility] Cardiac Stress Test MP-No rth [facility] 250 DO Work Phone: FSHon 10-15-2022 FSH 51.4 mIU/mL Normal [facility] Comment on above: Result Comment: Adul t Female: Follicular phase 3.5 - 12.5 Ovulation phase 4.7 - 21.5 Luteal phase 1.7 - 7.7 Postmenopausal 25.8 - 134.8 Performed By: #### L [facility] #### [facility] [address] [place] [address] Dr. Jordan Gan LUTEINIZING HORMONE (LH)on 0 10-15-2022 LH 23.4 mIU/mL Normal [facility] Comment on above: Result Comment: Adul t Female: Follicular phase 2.4 - 12.6 Ovulation phase 14.0 - 95.6 Luteal phase 1.0 - 11.4 Postmenopausal 7.7 - 58.5 Performed By: #### L [facility] #### [facility] [address] [place] [address] Dr. Jordan Gan US PELVIS AND TRANSVAGon [...] DAVID HERNANDEZ Date: 2022-10-14 11:55 Normal [facility] CBC AUTO DIFFon 10-07-2022 BASO # 0.1 103/ul Normal 0.0-0.1 [facility] Comment on above: Performed By: #### C BC #### [facility] [address] [place] [address] Dr. Jordan Gan Basophils/100 WBC (Bld) 0.7 % Normal 0.2-2.0 [facility] Comment on above: Performed By: #### C BC #### [facility] [address] [place] [address] Dr. Jordan Gan EO # 0.2 103/ul Normal 0.0-0.7 [facility] Comment on above: Performed By: #### C BC #### [facility] [address] [place] [address] Dr. Jordan Gan Eosinophils/100 WBC (Bld) 2.9 % Normal 0.9-7.0 [facility] Comment on above: Performed By: #### C BC #### [facility] [address] [place] [address] Dr. Jordan Gan Erythrocyte distribution width (RBC) [Ratio] 13.2 % Normal 11.0-15.0 [facility] Comment on above: Performed By: #### C BC #### [facility] [address] [place] [address] Dr. Jordan Gan Hematocrit (Bld) [Volume fraction] 41.1 % Normal 36.0-48.0 [facility] Comment on above: Performed By: #### C BC #### [facility] [address] [place] [address] Dr. Jordan Gan Hemoglobin (Bld) [Mass/Vol] 13.7 g/dL Normal 12.0-16.0 [facility] Comment on above: Performed By: #### C BC #### [facility] [address] [place] [address] Dr. Jordan Gan IG # 0.01 10e3/ul Normal 0.00-0.03 [facility] Comment on above: Performed By: #### C BC #### [facility] [address] [place] [address] Dr. Jordan Gan IG % 0.1 % Normal 0.0-0.5 [facility] Comment on above: Performed By: #### C BC #### [facility] [address] [place] [address] Dr. Jordan Gan LYMPH # 1.9 103/ul Normal 1.2-3.8 [facility] Comment on above: Performed By: #### C BC #### [facility] [address] [place] [address] Dr. Jordan Gan Lymphocytes/100 WBC (Bld) 27.6 % Normal 20.5-60.0 [facility] Comment on above: Performed By: #### C BC #### [facility] [address] [place] [address] Dr. Jordan Gan MANUAL DIFF REQ NO Normal [facility] Comment on above: Performed By: #### C BC #### [facility] [address] [place] [address] Dr. Jordan Gan MCH (RBC) [Entitic mass] 29.8 pg Normal 26.7-34.0 [facility] Comment on above: Performed By: #### C BC #### [facility] [address] [place] [address] Dr. Jordan Gan MCHC (RBC) [Mass/Vol] 33.3 g/dL Normal 29.9-35.2 [facility] Comment on above: Performed By: #### C BC #### [facility] [address] [place] [address] [address] Jordan Gan MCV (RBC) [Entitic vol] 89.5 fL Normal 81.0-99.0 [facility] Comment on above: Performed By: #### C BC #### [facility] [address] [place] [address] [address] Jordan Gan MONO # 0.5 103/ul Normal 0.3-0.8 [facility] Comment on above: Performed By: #### C BC #### [facility] [address] [place] [address] [address] Jordan Gan Monocytes/100 WBC (Bld) 7.6 % Normal 1.7-12.0 [facility] Comment on above: Performed By: #### C BC #### [facility] [address] [place] [address] [address] Jordan Gan NEUT # 4.3 103/ul Normal 1.4-6.5 [facility] Comment on above: Performed By: #### C BC #### [facility] [address] [place] [address] [address] Jordan Gan Neutrophils/100 WBC (Bld) 61.1 % Normal 43.0-75.0 [facility] Comment on above: Performed By: #### C BC #### [facility] [address] [place] [address] [address] Jordan Gan Platelet mean volume (Bld) [Entitic vol] 9.4 fL Critically low 9.5-13.5 [facility] Comment on above: Performed By: #### C BC #### [facility] [address] [place] [address] [address] Jordan Gan PLT 446 103/ul Normal 150-450 [facility] Comment on above: Performed By: #### C BC #### [facility] [address] [place] [address] [address] Jordan Gan RBC 4.59 106/ul Normal 4.20-5.40 [facility] Comment on above: Performed By: #### C BC #### [facility] [address] [place] [address] [address] Joradn Gan WBC 7.0 103/ul Normal 4.0-11.0 [facility] Comment on above: Performed By: #### C BC #### [facility] [address] [place] [address] Dr. Jordan Gan LIPID PROFILEon 10-07-2022 CHOL-HDL RATIO NORM SEE BELOW Normal [facility] Comment on above: Result Comment: 3.3 - 4.4 LOW RISK 4.4 - 7.1 AVERAGE RISK 7.1 - 11.0 MODERATE RISK >11.0 HIGH RISK Performed By: #### A LT, AST, LIPID, TSH, BMP #### [facility] [address] [place] [address] Dr. Jordan Gan Cholesterol [Mass/Vol] 251 mg/dL Critically high <=200 [facility] Comment on above: Performed By: #### A LT, AST, LIPID, TSH, BMP #### [facility] [address] [place] [address] Dr. Jordan Gan Cholesterol in HDL [Mass/Vol] 109 mg/dL Critically high 40-60 [facility] Comment on above: Performed By: #### A LT, AST, LIPID, TSH, BMP #### [facility] [address] [place] [address] Dr. Jordan Gan Cholesterol in LDL [Mass/Vol] 127.4 mg/dL Normal [facility] Comment on above: Performed By: #### A LT, AST, LIPID, TSH, BMP #### [facility] [address] [place] [address] Dr. Jordan Gan Cholesterol.total/Chol esterol in HDL [Mass ratio] 2.3 {ratio} Normal [facility] Comment on above: Performed By: #### A LT, AST, LIPID, TSH, BMP #### [facility] [address] [place] [address] Dr. Jordan Gan HDL NORMAL > or = 60 mg/dl - LO W CARDIOVASCULAR RISK <40 mg/dl - HIGH CARDIOVASCULAR RISK Normal [facility] Comment on above: Performed By: #### A LT, AST, LIPID, TSH, BMP #### [facility] [address] [place] [address] [address] Jordan Gan LDL CALC NORMAL SEE BELOW Normal [facility] Comment on above: Result Comment: <100 mg/dl OPTIMAL 100 - 129 mg/dl NEAR OR ABOVE OPTIMAL 130 - 159 mg/dl BORDERLINE HIGH 160 - 189 mg/dl HIGH >190 mg/dl VERY HIGH Performed By: #### A LT, AST, LIPID, TSH, BMP #### [facility] [address] [place] [address] [address] Jordan Gan Triglyceride [Mass/Vol] 73 mg/dL Normal <=150 [facility] Comment on above: Performed By: #### A LT, AST, LIPID, TSH, BMP #### [facility] [address] [place] [address] [address] Jordan Gan VLDL CALC 14.6 mg/dL Normal [facility] Comment on above: Performed By: #### A LT, AST, LIPID, TSH, BMP #### [facility] [address] [place] [address] [address] Jordan Gan PROF CHEM 8 (BAS METB)on Anion gap [Moles/Vol] 10.6 mmol/L Normal [facility] Comment on above: Performed By: #### A LT, AST, LIPID, TSH, BMP #### [facility] [address] [place] [address] [address] Jordan Gan Calcium [Mass/Vol] 9.4 mg/dL Normal 8.5-10.1 [facility] Comment on above: Performed By: #### A LT, AST, LIPID, TSH, BMP #### [facility] [address] [place] [address] [address] Jordan Gan Chloride [Moles/Vol] 102 mmol/L Normal 98-107 [facility] Comment on above: Performed By: #### A LT, AST, LIPID, TSH, BMP #### [facility] [address] [place] [address] [address] Jordan Gan CO2 [Moles/Vol] 30.8 mmol/L Normal 21.0-32.0 [facility] Comment on above: Performed By: #### A LT, AST, LIPID, TSH, BMP #### [facility] [address] [place] [address] Dr. Jordan Gan Creatinine [Mass/Vol] 0.60 mg/dL Normal 0.55-1.02 [facility] Comment on above: Performed By: #### A LT, AST, LIPID, TSH, BMP #### [facility] [address] [place] [address] Dr. Jordan Gan EGFR-AF ISRAELI >60 Normal >=60 [facility] Comment on above: Performed By: #### A LT, AST, LIPID, TSH, BMP #### [facility] [address] [place] [address] Dr. Jordan Gan EGFR-NON AF ISRAELI >60 Normal >=60 [facility] Comment on above: Performed By: #### A LT, AST, LIPID, TSH, BMP #### [facility] [address] [place] [address] Dr. Jordan Gan Glucose [Mass/Vol] 95 mg/dL Normal 74-106 [facility] Comment on above: Performed By: #### A LT, AST, LIPID, TSH, BMP #### [facility] [address] [place] [address] Dr. Jordan Gan Potassium [Moles/Vol] 4.4 mmol/L Normal 3.5-5.1 [facility] Comment on above: Performed By: #### A LT, AST, LIPID, TSH, BMP #### [facility] [address] [place] [address] Dr. Jordan Gan Sodium [Moles/Vol] 139 mmol/L Normal 136-145 [facility] Comment on above: Performed By: #### A LT, AST, LIPID, TSH, BMP #### [facility] [address] [place] [address] Dr. Jordan Gan Urea nitrogen [Mass/Vol] 13.0 mg/dL Normal 7.0-18.0 [facility] Comment on above: Performed By: #### A LT, AST, LIPID, TSH, BMP #### [facility] [address] [place] [address] Dr. Jordan Gan Urea nitrogen/Creatinine [Mass ratio] 21.7 mg/mg Normal [facility] Comment on above: Performed By: #### A LT, AST, LIPID, TSH, BMP #### [facility] [address] [place] [address] Dr. Jordan Gan SGOTon 10-07-2022 AST [Catalytic activity/Vol] 17 U/L Normal 15-37 [facility] Comment on above: Performed By: #### A LT, AST, LIPID, TSH, BMP #### [facility] [address] [place] [address] Dr. Jordan Gan SGPTon 10-07-2022 ALT [Catalytic activity/Vol] 34 U/L Normal 14-59 [facility] Comment on above: Performed By: #### A LT, AST, LIPID, TSH, BMP #### [facility] [address] [place] [address] Dr. Jordan Gan TSHon 10-07-2022 TSH 1.554 uIU/mL Normal 0.358-3.740 The [facility] Comment on above: Performed By: #### A LT, AST, LIPID, TSH, BMP #### [facility] [address] [place] [address] Dr. Jordan Gan VITAMIN D 25 OHon 10-07-2022 VIT D 25-OH 38.1 ng/mL Normal [facility] Comment on above: Performed By: #### A LT, AST, LIPID, TSH, BMP #### [facility] [address] [place] [address] Dr. Jordan Gan VIT D RANGES SEE BELOW Normal [facility] Comment on above: Result Comment: <20 ng/mL Vit D deficient 20 - <30 ng/mL Vit D insufficient 30 - 100 ng/mL Vit D sufficient >100 ng/mL Potential Toxicity Performed By: #### A LT, AST, LIPID, TSH, BMP #### [facility] [address] [place] [address] Dr. Jordan Gan Office Visit (Cardiology)on 10-04-2022 [...] Dyspnea Cardiac Stress Test; Status:Hold For - Scheduling,Retrospect kika Authorization; Requested for:04Oct2022; Echocardiogram; Status:Hold For - Scheduling,Retrospect kika Authorization; Requested for:04Oct2022; Dyspnea IO EKG Electrocardiogram- [...] on exertion and palpitations. 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 She tells [...] CAD, she is non-smoker, she drinks socially. Assessment/recommenda tions: 1?Constellation of nonspecific symptoms of fatigue and [...] VITALSon 10-04-2022 Adult depression screening assessment No [facility] 250 DO Work Phone: Tobacco Screening.on 023 Tobacco use status [facility] b) No [facility] 250 DO Work Phone: HCG ( test) IA.rapi d Ql (U)Ordered By: Deven Philippe on 06-28-2022 HCG ( test) Ql (U) Negative [facility] COVID-19 SOFIAOrdered By: Teofilo Wallis on 06-24-2022 SARS-CoV+SARS-CoV-2 (COVID-19) Ag IA.rapid Ql (Resp) Negative Negative [facility] Comment on above: This is a duplicate Jesusita SARS Antigen (DANNI) result to be used for statistical tracking purpose only. No Panel InformationOrdered By: Chu Wallis on 06-24-2022 SARS Antigen (LFIA) [facility] Covid-19 PCR (CVDTBH)on 03-10 SARS-CoV-2 (COVID-19) RNA CHON+probe Ql (Unsp spec) Not detected Normal NOT DETECTED [facility] Comment on above: Result Comment: This test is not yet approved or cleared by the [place] FDA. When there are no FDA-approved or cleared tests available, and other criteria are met, FDA can make tests available under an emergency access mechanism called an Emergency Use Authorization (EUA). The EUA for this test is supported by the [place] of Health and Human Service's (HHS's) declaration [...] consistent with SARS-CoV-2. Performed By: #### C [facility] #### [facility] [address] [place] [address] [address] Jordan Gan HCG ( test) IA.rapi d Ql (U)Ordered By: Sabas Delgadillo on 09-28-2021 HCG ( test) Ql (U) Negative [facility] COVID-19 Positive/NegativeOr dered By: Chu Wallis on 09-24-2021 SARS-CoV-2 (COVID-19) N gene CHON+probe Ql (Resp) Negative Negative [facility] Comment on above: Testing for SARS-CoV -2 by RT-PCRThis test was developed and its performance characteristics determined by [employer] and validated at the [facility]. This test has not been FDA cleared [...] the authorization is terminated or revoked sooner. Vital Signs Date Time Vital Sign Value Performing Clinician Facility 03-18-2025 08:46-0400 Diastolic blood pressure 78 mm[Hg] Ernie Mcpherson MD Work Phone: [facility] 03-18-2025 08:46-0400 Systolic blood pressure 120 mm[Hg] Ernie Mcpherson MD Work Phone: [facility] 03-18-2025 08:30-0400 Body height 167.6 cm Ernie Mcpherson MD Work Phone: [facility] 03-18-2025 08:30-0400 Body mass index (BMI) [Ratio] 26.47 kg/m2 Ernie Mcpherson MD Work Phone: [facility] 03-18-2025 08:30-0400 Body weight 74.39 kg Ernie Mcpherson MD Work Phone: [facility] 03-18-2025 08:30-0400 Heart rate 64 /min Ernie Mcpherson MD Work Phone: [facility] 07-31-2024 11:32-0500 Body height 167.6 cm Arsenio Baxter MD Work Phone: [facility] 07-31-2024 11:32-0500 Body mass index (BMI) [Ratio] 25.99 kg/m2 Arsenio Baxter MD Work Phone: [facility] 07-31-2024 11:32-0500 Body weight 73.03 kg Arsenio Baxter MD Work Phone: [facility] 07-29-2024 10:46-0500 Body height 167.6 cm Arsenio Baxter MD Work Phone: [facility] 07-29-2024 10:46-0500 Body mass index (BMI) [Ratio] 25.99 kg/m2 Arsenio Baxter MD Work Phone: [facility] 07-29-2024 10:46-0500 Body weight 73.03 kg Arsenio Baxter MD Work Phone: [facility] 03-07-2024 08:32-0400 Body height 167.6 cm Ernie Mcpherson MD Work Phone: [facility] 03-07-2024 08:32-0400 Body mass index (BMI) [Ratio] 25.89 kg/m2 Ernie Mcpherson MD Work Phone: [facility] 03-07-2024 08:32-0400 Body weight 72.76 kg Ernie Mcpherson MD Work Phone: [facility] 03-07-2024 08:32-0400 Diastolic blood pressure 84 mm[Hg] Ernie Mcpherson MD Work Phone: [facility] 03-07-2024 08:32-0400 Heart rate 62 /min Ernie Mcpherson MD Work Phone: [facility] 03-07-2024 08:32-0400 Systolic blood pressure 120 mm[Hg] Ernie Mcpherson MD Work Phone: [facility] 02-06-2023 13:13-0400 Body height 167.64 cm Arsenio Baxter Work Phone: [facility] 250 DO Work Phone: 02-06-2023 13:13-0400 Body mass index (BMI) [Ratio] 25.99 kg/m2 Arsenio Baxter Work Phone: [facility] 250 DO Work Phone: 02-06-2023 13:13-0400 Body surface area Derived from formula 1.82 m2 Arsenio Baxter Work Phone: [facility] 250 DO Work Phone: 02-06-2023 13:13-0400 Body weight 73.03 kg Arsenio Baxter Work Phone: [facility] 250 DO Work Phone: 02-06-2023 13:13-0400 Diastolic blood pressure 60 mm[Hg] Arsenio Baxter Work Phone: [facility] 250 DO Work Phone: 02-06-2023 13:13-0400 Heart rate 84 /min Edlenore Moralesyer Work Phone: [facility] 250 DO Work Phone: 02-06-2023 13:13-0400 Systolic blood pressure 122 mm[Hg] Cordelllenore Tian Hemeyer Work Phone: [facility] 250 DO Work Phone: 10-07-2022 00:00-0400 127.4 1 Cordelllenore Moralesyer Work Phone: [facility] 250 DO Work Phone: Comment on above: [facility] 10-04-2022 09:34-0400 Diastolic blood pressure 90 mm[Hg] Cordelllenore Jaylan Andrewyer Work Phone: [facility] 250 DO Work Phone: 10-04-2022 09:34-0400 Systolic blood pressure 138 mm[Hg] Cordelllenore Moralesyer Work Phone: [facility] 250 DO Work Phone: 10-04-2022 09:33-0400 Body height 167.64 cm Cordelllenore Moralesyer Work Phone: [facility] 250 DO Work Phone: 10-04-2022 09:33-0400 Body mass index (BMI) [Ratio] 25.99 kg/m2 [place] Jaylan Hemeyer Work Phone: [facility] 250 DO Work Phone: 10-04-2022 09:33-0400 Body surface area Derived from formula 1.82 m2 Arsenio Moralesyer Work Phone: [facility] 250 DO Work Phone: 10-04-2022 09:33-0400 Body weight 73.03 kg Edlenore Baxter Work Phone: [facility] 250 DO Work Phone: 10-04-2022 09:33-0400 Diastolic blood pressure 90 mm[Hg] Cordelllenore Baxter Work Phone: [facility] 250 DO Work Phone: 10-04-2022 09:33-0400 Heart rate 65 /min Cordelllenore Baxter Work Phone: [facility] 250 DO Work Phone: 10-04-2022 09:33-0400 Systolic blood pressure 142 mm[Hg] Cordelllenore Baxter Work Phone: [facility] 250 DO Work Phone: 06-28-2022 15:35-0500 Diastolic blood pressure 84 mm[Hg] MD Arsenio Baxter Work Phone: [facility] 06-28-2022 15:35-0500 Heart rate 94 /min MD Arsenio Baxter Work Phone: [facility] 06-28-2022 15:35-0500 Respiratory rate 16 /min MD Arsenio Baxter Work Phone: [facility] 06-28-2022 15:35-0500 SaO2% (BldA) [Mass fraction] 94 % MD Arsenio Baxter Work Phone: [facility] 06-28-2022 15:35-0500 Systolic blood pressure 138 mm[Hg] MD Arsenio Baxter Work Phone: [facility] 06-28-2022 13:48-0500 Body temperature 97 [degF] MD Arsenio Baxter Work Phone: [facility] 06-28-2022 13:48-0500 Inhaled oxygen flow rate 6 L/min MD Arsenio Baxter Work Phone: [facility] 06-28-2022 11:18-0500 Body mass index (BMI) [Ratio] 25.5 kg/m2 MD Arsenio Baxter Work Phone: [facility] 06-28-2022 11:06-0500 Body height 167.64 cm MD Arsenio Baxter Work Phone: [facility] 06-28-2022 11:06-0500 Body weight 71.9 kg MD Arsenio Baxter Work Phone: [facility] 09-28-2021 17:19-0400 Diastolic blood pressure 61 mm[Hg] MD Arsenio Baxter Work Phone: [facility] 09-28-2021 17:19-0400 Heart rate 77 /min MD Arsenio Baxter Work Phone: [facility] 09-28-2021 17:19-0400 Respiratory rate 16 /min MD Arsenio Baxter Work Phone: [facility] 09-28-2021 17:19-0400 SaO2% (BldA) [Mass fraction] 91 % MD Arsenio Baxter Work Phone: [facility] 09-28-2021 17:19-0400 Systolic blood pressure 119 mm[Hg] MD Arsenio Baxter Work Phone: [facility] 09-28-2021 15:58-0400 Inhaled oxygen flow rate 1 L/min MD Arsenio Baxter Work Phone: [facility] 09-28-2021 13:42-0400 Body temperature 97.5 [degF] MD Arsenio Baxter Work Phone: [facility] 09-28-2021 11:04-0400 Body height 167.64 cm MD Arsenio Baxter Work Phone: [facility] 09-28-2021 11:04-0400 Body mass index (BMI) [Ratio] 25.2 kg/m2 MD Arsenio Baxter Work Phone: [facility] 09-28-2021 11:0400 Body weight 71 kg MD Arsenio Baxter Work Phone: [facility] Encounters Encounter Date Encounter Type Care Provider Facility Start: 03-18-2025 End: 03-18-2025 Bamboo flowsheet Sabas Deutsch PT Work Phone: [facility] Start: 03-18-2025 End: 03-18-2025 Bamboo flowsheet Sabas Deutsch PT Work Phone: [facility] Start: 03-18-2025 End: 03-18-2025 ambulatory Sabas Deutsch PT Work Phone: [facility] Comment on above: DDD (degenerative di sc disease), cervical (Primary Dx); Cervical spine arthritis Start: 03-18-2025 End: 03-18-2025 Office outpatient visit 15 minutes Ernie Mcpherson MD Work Phone: [facility] Comment on above: Essential hypertensi on (Primary Dx); Palpitations; Vitamin D deficiency; Screening for lipid disorders; Family history of heart disease; BMI 26.0-26.9,adult; Never smoked tobacco; Overweight; Nonspecific abdominal pain Start: 03-18-2025 End: 03-18-2025 ambulatory [facility] Amb[facility] Start: 03-11-2025 End: 03-11-2025 Bamboo flowsjay Deutsch PT Work Phone: [facility] Start: 03-11-2025 End: 03-11-2025 Bamboo flowsheet Sabas Deutsch PT Work Phone: [facility] Start: 03-11-2025 End: 03-11-2025 ambulatory Sabas Deutsch PT Work Phone: [facility] Comment on above: DDD (degenerative di sc disease), cervical (Primary Dx); Cervical spine arthritis Start: 03-04-2025 End: 03-04-2025 Bamboo flowsheet Sabas Mendez Get PT Work Phone: [facility] Start: 03-04-2025 End: 03-04-2025 Bamboo flowsheet Sabas Mendez Get PT Work Phone: [facility] Start: 03-04-2025 End: 03-04-2025 ambulatory Sabas Mendez Get PT Work Phone: [facility] Comment on above: DDD (degenerative di sc disease), cervical (Primary Dx); Cervical spine arthritis Start: 02-25-2025 End: 02-25-2025 ambulatory SABAS Mendez GET Not Available Start: 02-25-2025 End: 02-25-2025 ambulatory Sabas Mendez Get PT Work Phone: [facility] Comment on above: DDD (degenerative di sc disease), cervical (Primary Dx); Cervical spine arthritis Start: 02-18-2025 End: 02-18-2025 Bamboo flowsheet Sabas Mendez Get PT Work Phone: [facility] Start: 02-18-2025 End: 02-18-2025 Bamboo flowsheet Sabas Mendez Get PT Work Phone: [facility] Start: 02-18-2025 End: 02-18-2025 ambulatory Sabas Mendez Get PT Work Phone: [facility] Comment on above: DDD (degenerative di sc disease), cervical (Primary Dx); Cervical spine arthritis Start: 02-07-2025 End: 02-07-2025 Bamboo flowsheet Sabas Mendez Get PT Work Phone: [facility] Start: 02-07-2025 End: 02-07-2025 Bamboo flowsheet Sabas Vanessa Get PT Work Phone: [facility] Start: 02-07-2025 End: 02-07-2025 ambulatory Sabas Vanessa Get PT Work Phone: [facility] Comment on above: DDD (degenerative di sc disease), cervical (Primary Dx); Cervical spine arthritis Start: 01-07-2025 End: 01-07-2025 ambulatory Sabas Deutsch PT Work Phone: [facility] Comment on above: DDD (degenerative di sc disease), cervical (Primary Dx); Cervical spine arthritis Start: 01-07-2025 End: 01-07-2025 Bamboo flowsheet Sabas Deutsch PT Work Phone: [facility] Start: 01-07-2025 End: 01-07-2025 Bamboo flowsheet Sabas Deutsch PT Work Phone: [facility] Start: 12-31-2024 End: 12-31-2024 ambulatory Sabas Deutsch PT Work Phone: [facility] Comment on above: DDD (degenerative di sc disease), cervical (Primary Dx); Cervical spine arthritis Start: 12-31-2024 End: 12-31-2024 Bamboo flowsheet Sabas Deutsch PT Work Phone: [facility] Start: 12-31-2024 End: 12-31-2024 Bamboo flowsheet Sabas Deutsch PT Work Phone: [facility] Start: 12-25-[address] [facility] Start: 12-24-2024 End: 12-24-2024 Bamboo flowsheet Sabas Deutsch PT Work Phone: [facility] Start: 12-24-2024 End: 12-24-2024 Bamboo flowsheet Sabas Deutsch PT Work Phone: [facility] Start: 12-24-2024 End: 12-24-2024 ambulatory Sabas Deutsch PT Work Phone: [facility] Comment on above: DDD (degenerative di sc disease), cervical (Primary Dx); Cervical spine arthritis Start: 12-17-2024 End: 12-17-2024 Bamboo flowsheet Sabas Deutsch PT Work Phone: [facility] Start: 12-17-2024 End: 12-17-2024 Bamboo flowsheet Sabas Deutsch PT Work Phone: [facility] Start: 12-17-2024 End: 12-17-2024 ambulatory Sabas Deutsch PT Work Phone: [facility] Comment on above: DDD (degenerative di sc disease), cervical (Primary Dx); Cervical spine arthritis Start: 12-11-2024 End: 12-11-2024 Bamboo flowsheet Sabas Deutsch PT Work Phone: [facility] Start: 12-11-2024 End: 12-11-2024 Bamboo flowsheet Sabas Deutsch PT Work Phone: [facility] Start: 12-11-2024 End: 12-11-2024 ambulatory Sabas Deutsch PT Work Phone: [facility] Comment on above: DDD (degenerative di sc disease), cervical (Primary Dx); Cervical spine arthritis Start: 11-26-2024 End: 11-26-2024 Bamboo flowsjay Deutsch PT Work Phone: [facility] Start: 11-26-2024 End: 11-26-2024 Bamboo flowsheet Sabas Deutsch PT Work Phone: [facility] Start: 11-26-2024 End: 11-26-2024 ambulatory Sabas Deutsch PT Work Phone: [facility] Comment on above: DDD (degenerative di sc disease), cervical (Primary Dx); Cervical spine arthritis Start: 11-11-2024 End: 11-11-2024 Bamboo flowsheet Sabas Deutsch PT Work Phone: [facility] Start: 11-11-2024 End: 11-11-2024 Bamboo flowsheet Sabas Deutsch PT Work Phone: [facility] Start: 11-11-2024 End: 11-11-2024 ambulatory Sabas Deutsch PT Work Phone: [facility] Comment on above: DDD (degenerative di sc disease), cervical (Primary Dx); Cervical spine arthritis Start: 10-17-2024 End: 10-17-2024 Bamboo flowsheet Sabas Deutsch PT Work Phone: [facility] Start: 10-17-2024 End: 10-17-2024 Bamboo flowsheet Sabas Deutsch PT Work Phone: [facility] Start: 10-17-2024 End: 10-17-2024 ambulatory SABAS DEUTSCH Not Available Start: 10-08-2024 End: 10-09-2024 ambulatory Shankar Oreillyten [place] Start: 10-07-2024 End: 10-08-2024 ambulatory Sabas Deutsch PT Work Phone: [facility] Comment on above: DDD (degenerative di sc disease), cervical (Primary Dx); Cervical spine arthritis Start: 10-07-2024 End: 10-07-2024 Bamboo flowsheet Sabas Deutsch PT Work Phone: [facility] Start: 10-07-2024 End: 10-07-2024 Bamboo flowsheet Sabas Deutsch PT Work Phone: [facility] Start: 09-23-2024 End: 09-24-2024 ambulatory SABAS DEUTSCH Not Available Start: 09-11-2024 End: 09-12-2024 ambulatory Sabas Deutsch PT Work Phone: [facility] Comment on above: DDD (degenerative di sc disease), cervical (Primary Dx); Cervical spine arthritis Start: 09-11-2024 End: 09-11-2024 Bamboo flowsheet Sabas Deutsch PT Work Phone: [facility] Start: 09-11-2024 End: 09-11-2024 Bamboo flowsheet Sabas Deutsch PT Work Phone: [facility] Start: 08-23-2024 End: 08-23-2024 Bamboo flowsheet Sabas Deutsch PT Work Phone: [facility] Start: 08-23-2024 End: 08-23-2024 Bamboo flowsheet Sabas Deutsch PT Work Phone: [facility] Start: 08-23-2024 End: 02-14-2025 ambulatory Sabas Deutsch PT Work Phone: [facility] Comment on above: DDD (degenerative di sc disease), cervical (Primary Dx); Cervical spine arthritis Start: 08-06-2024 End: 08-06-2024 Bamboo flowsheet Sabas Deutsch PT Work Phone: [facility] Start: 08-06-2024 End: 08-06-2024 Bamboo flowsheet Sabas Deutsch PT Work Phone: [facility] Start: 08-06-2024 End: 08-06-2024 ambulatory SABAS DEUTSCH Not Available Start: 08-06-2024 End: 08-06-2024 ambulatory Sabas Deutsch PT Work Phone: [facility] Comment on above: DDD (degenerative di sc disease), cervical (Primary Dx); Cervical spine arthritis Start: 07-31-2024 End: 07-31-2024 Patient encounter procedure Arsenio Baxter MD Work Phone: [facility] Comment on above: Chronic pain of left knee (Primary Dx); Arthritis of left knee Start: 07-31-2024 End: 07-31-2024 ambulatory ARSENIO BAXTER Not Available Start: 07-29-2024 End: 07-29-2024 Patient encounter procedure Arsenio Baxter MD Work Phone: [facility] [address] Work Phone: Start: 07-29-2024 End: 07-29-2024 ambulatory Arsenio Baxter MD Work Phone: [facility] Work Phone: Start: 07-29-2024 End: 07-29-2024 Bamboo flowsheet Arsenio Baxter MD Work Phone: [facility] Start: 07-29-2024 End: 07-29-2024 Bamboo flowsheet Arsenio Baxter MD Work Phone: [facility] Start: 07-29-2024 End: 07-29-2024 Office outpatient visit 40 minutes Arsenio Baxter MD Work Phone: [facility] Comment on above: Chronic pain of left knee (Primary Dx); Left foot pain; Fall, initial encounter; Paresthesia of upper extremity; Screening mammogram for breast cancer; Mass of soft tissue of right upper extremity Start: 07-29-2024 End: 07-29-2024 ambulatory ARSENIO BAXTER Not Available Start: 07-12-2024 ambulatory Juan Sotelo Facilit y: [facility] Start: 07-04-2024 End: 07-04-2024 ambulatory Juan Sotelo Facility[place] Start: 07-01-2024 End: 07-01-2024 ambulatory Moses Talal Sarmini Facility:[facility] Start: 06-15-2024 End: 06-15-2024 ambulatory Moses Talal Sarmini Facility[facility] Start: 06-11-2024 ambulatory [facility] Start: 06-05-2024 End: 06-05-2024 Clinisync Result Encounter Generic External Data Provider [facility] External Department Unsolicited Start: 06-05-2024 End: 06-05-2024 Clinisync Result Encounter Generic External Data Provider [facility] External Department Unsolicited Start: 06-05-2024 End: 06-05-2024 ambulatory Moses Talal Sarmini Facility:[facility] Start: 03-12-2024 End: 03-12-2024 Clinisync Result Encounter Generic External Data Provider [facility] External Department Unsolicited Start: 03-12-2024 End: 03-12-2024 Clinisync Result Encounter Generic External Data Provider [facility] External Department Unsolicited Start: 03-07-2024 End: 03-07-2024 Office outpatient visit 15 minutes Ernie Mcpherson MD Work Phone: [facility] Comment on above: Essential hypertensi on; BMI 25.0-25.9,adult; Screening for hyperlipidemia Start: 03-05-2024 End: 03-05-2024 ambulatory Moses Talal Sarmini [facility] Start: 03-05-2024 End: 03-05-2024 ambulatory Moses Talal Sarmini Facility:[id number] Start: 02-27-2024 End: 02-27-2024 Office outpatient visit 15 minutes Ade Marks MD Work Phone: [facility] Comment on above: Other rosacea (Prima ry Dx); Seborrheic keratosis; Neoplasm of unspecified behavior of bone, soft tissue, and skin Start: 02-27-2024 End: 02-27-2024 Bamboo flowsheet Ade Marks MD Work Phone: [facility] Start: 02-27-2024 End: 02-27-2024 Bamboo flowsheet Ade Marks MD Work Phone: [facility] Start: 02-21-2024 End: 02-21-2024 ambulatory Aurelia Crockett Facility:[facility] Start: 02-08-2024 ambulatory [facility] Start: 01-17-2024 End: 01-17-2024 ambulatory Shankar Obrien Facility[place] Start: 02-06-[address] Arsenio Baxter Facility:[id number] Start: 02-06-2023 Office outpatient vi sit 15 minutes Arsenio Baxter Work Phone: [facility] [address] DO Work Phone: Start: 11-29-[address] Ernie Mcpherson Facility:[id number] Start: 11-01-2022 Chart Update Arsenio Lunsford er Work Phone: [facility] [address] DO Work Phone: Start: 10-28-[address] Ernie Mcpherson Facility:[id number] Start: 10-14-2022 End: 10-15-[address] SHANKAR OBRIEN Facility:[id number] Start: 10-07-2022 End: 10-08-[address] ERNIE MCPHERSON Facility:H1 Start: 03-28-2023 Office outpatient ne w 45 minutes Arsenio Baxter Work Phone: -[facility] [address] DO Work Phone: Start: 10-04-[address] Arsenio Baxter Facility: Start: 06-28-2022 End: 06-28-2022 Admission to same day surgery center MD [facility]senio Baxter [facility] Start: 06-28-2022 End: 06-28-2022 ambulatory MD Arsenio Baxter Work Phone: [facility] Work Phone: Start: 06-24-2022 End: 06-24-2022 Patient encounter procedure MD Arsenio Baxter Work Phone: [facility] Jyl-Lwb-Rvoiseex Testing Start: 06-13-2022 End: 06-13-2022 ambulatory MD Arsenio Baxter Work Phone: [facility] Work Phone: Start: 06-13-2022 End: 06-13-2022 Patient encounter procedure MD Arsenio Baxter Work Phone: [facility] Wzo-Dco-Whzdteam Testing Start: 03-28-2022 End: 03-28-[address] ARSENIO BAXTER . Facility: Start: 09-28-2021 End: 09-28-2021 Admission to same day surgery center MD Arsenio Baxter [facility] Start: 09-24-2021 End: 09-24-2021 Patient encounter procedure MD Arsenio Baxter Work Phone: [facility] Upa-Lum-Fnhcwsbf Testing Start: 09-13-2021 End: 09-13-2021 Patient encounter procedure MD Arsenio Baxter Work Phone: [facility] Jiz-Keo-Fltsaprh Testing Start: 08-03-2021 End: 08-03-2021 Patient encounter procedure MD Arsenio Baxter Work Phone: [facility] [place] [facility] Procedures Date Procedure Procedure Detail Performing Clinician Start: 10-08-2024 Microscopic observat ion [Identifier] in Cervix by Cyto stain Sabas Deutsch PT Work Phone: Start: 07-29-2024 X-ray of left knee, four views Arsenio Baxter MD Work Phone: Start: 07-29-2024 X-ray of cervical spine Arsenio Baxter MD Work Phone: Start: 07-29-2024 Mammography Arsenio arredondo MD Work Phone: Start: 06-05-2024 ALL CBC WITH AUTO DIFF Generic External Data Provider Start: 03-12-2024 ALL CBC WITH AUTO DIFF Generic External Data Provider Start: 02-27-2024 SKIN / NAIL BIOPSY Gomez Marks MD Work Phone: Start: 06-28-2022 Reconstruction of br east using transverse rectus abdominis myocutaneous flap MD Arsenio Baxter Work Phone: Start: 09-28-2021 Reconstruction of br east using transverse rectus abdominis myocutaneous flap MD rAsenio Baxter Work Phone: Start: 08-03-2021 X-ray of left foot MD Cherry Baxter Work Phone: Start: 02-04-2021 Mammography Ade landeros MD Work Phone: Start: 07-06-2017 Colonoscopy Ade landeros MD Work Phone: section Arsenio nevarez Work Phone: SARS Antigen (LFIA) MD Abdifatah Baxter Work Phone: Plan of Treatment Date Care Activity Detail Author Start: 12-25-2034 DTaP/Tdap/Td Vaccines (4 - Td or Tdap) DTaP/Tdap/Td Vaccines (4 - Td or Tdap) [facility] Start: 10-08-2029 Screening for malignant neoplasm of cervix [facility] Start: 10-09-2027 Screening for malignant neoplasm of cervix Pap Smear [facility] Start: 07-06-2027 Screening for malignant neoplasm of colon [facility] Start: 04-20-2027 DTaP/Tdap/Td Vaccines (3 - Td or Tdap) DTaP/Tdap/Td Vaccines (3 - Td or Tdap) [facility] Start: 03-24-2026 End: 03-24-2026 Patient encounter procedure 03/24/2026 8:30 AM EDT Office Visit [facility] [address] [facility] [address] [place] [id number] Ernie Mcpherson MD [address] [place] [address] [facility] Start: 07-29-2025 Screening for malignant neoplasm of breast Mammogram [facility] Start: 04-11-2025 End: 04-11-2025 ambulatory 04/11/2025 9:30 AM EDT Treatment [facility] [address] [place] [address] Sabas Deutsch, PT [address] [place] [address] [facility] Start: 04-01-2025 End: 04-01-2025 ambulatory 04/01/2025 9:30 AM EDT Treatment [facility] [address] [place] [address] Sabas Deutsch, PT [address] [place] [address] [facility] Start: 03-25-2025 End: 03-25-2025 ambulatory 03/25/2025 9:30 AM EDT Treatment [facility] [address] [place] [address] Sabas Deutsch, PT [address] [place] [address] [facility] Start: 03-18-2025 End: 03-18-2026 25-hydroxyvitamin D3 [Mass/volume] in Serum or Plasma Vitamin D 25-Hydroxy,Total (for eval of Vitamin D levels) Lab Routine Vitamin D deficiency Expected: 03/18/2025 (Approximate), Expires: 03/18/2026 [facility] Work Phone: Comment on above: Expected: 03/18/2025 (Approximate), Expi res: 03/18/2026 Start: 03-18-2025 End: 03-18-2026 Alanine aminotransferase [Enzymatic activity/volume] in Serum or Plasma by With P-5'-P Alanine Aminotransferase Lab Routine Essential hypertension Screening for lipid disorders Expected: 03/18/2025 (Approximate), Expires: 03/18/2026 [facility] Work Phone: Comment on above: Expected: 03/18/2025 (Approximate), Expi res: 03/18/2026 Start: 03-18-2025 End: 03-18-2026 Aspartate aminotransferase [Enzymatic activity/volume] in Serum or Plasma by With P-5'-P Aspartate Aminotransferase Lab Routine Essential hypertension Screening for lipid disorders Expected: 03/18/2025 (Approximate), Expires: 03/18/2026 [facility] Work Phone: Comment on above: Expected: 03/18/2025 (Approximate), Expi res: 03/18/2026 Start: 03-18-2025 End: 03-18-2026 Basic metabolic 2000 panel - Serum or Plasma Basic Metabolic Panel Lab Routine Essential hypertension Expected: 03/18/2025 (Approximate), Expires: 03/18/2026 [facility] Work Phone: Comment on above: Expected: 03/18/2025 (Approximate), Expi res: 03/18/2026 Start: 03-18-2025 End: 03-18-2026 CBC panel - Blood by Automated count CBC Lab Routine Essential hypertension Expected: 03/18/2025 (Approximate), Expires: 03/18/2026 [facility] Work Phone: Comment on above: Expected: 03/18/2025 (Approximate), Expi res: 03/18/2026 Start: 03-18-2025 End: 03-18-2026 Lipid 1996 panel - Serum or Plasma Lipid Panel Lab Routine Essential hypertension Screening for lipid disorders Expected: 03/18/2025 (Approximate), Expires: 03/18/2026 [facility] Work Phone: Comment on above: Expected: 03/18/2025 (Approximate), Expi res: 03/18/2026 Start: 03-18-2025 End: 03-18-2026 Thyrotropin [Units/volume] in Serum or Plasma Thyroid Stimulating Hormone Lab Routine Palpitations Expected: 03/18/2025 (Approximate), Expires: 03/18/2026 [facility] Work Phone: Comment on above: Expected: 03/18/2025 (Approximate), Expi res: 03/18/2026 Start: 03-18-2025 End: 03-18-2025 ambulatory [facility] Comment on above: DDD (degenerative disc disease), cervica l (Primary Dx); Cervical spine arthritis Start: 03-18-2025 End: 03-18-2025 Patient encounter procedure 03/18/2025 8:30 AM EDT Office Visit [facility] [address] [facility] [address] [place] [phone] Ernie Mcpherson MD [address] [facility] [address] [place] [address] [facility] Start: 03-11-2025 End: 03-11-2025 ambulatory [facility] Comment on above: DDD (degenerative disc disease), cervica l (Primary Dx); Cervical spine arthritis Start: 03-10-2025 Influenza vaccination Influenza Vaccine (#1) [facility] Start: 03-04-2025 End: 03-04-2025 ambulatory 03/04/2025 9:15 AM EDT Treatment [facility] [address] [place] [address] Sabas Deutsch, PT [address] [facility] [place] [address] [facility] Start: 02-27-2025 End: 02-27-2025 Patient encounter procedure 02/27/2025 4:00 PM EDT Office Visit [facility] [address] [place] [address] Ade Marks MD [address] [place] [address] [facility] Start: 02-25-2025 End: 02-25-2025 ambulatory 02/25/2025 2:00 PM EDT Treatment [facility] [address] [place] [address] Sabas Deutsch, PT [address] [place] [address] [facility] Start: 02-18-2025 End: 02-18-2025 ambulatory [facility] Comment on above: DDD (degenerative disc disease), cervica l (Primary Dx); Cervical spine arthritis Start: 02-07-2025 End: 02-07-2025 ambulatory 02/07/2025 10:30 AM EDT Treatment [facility] [address] [facility] [place] [address] Sabas Deutsch, PT [address] [place] [address] DDD (degenerative disc disease), cervical (Primary Dx); Cervical spine arthritis [facility] Comment on above: DDD (degenerative disc disease), cervica l (Primary Dx); Cervical spine arthritis Start: 01-14-2025 End: 01-14-2025 ambulatory 01/14/2025 3:00 PM EDT Treatment [facility] [address] [facility] [place] [address] Sabas Deutsch, PT [address] [place] [address] [facility] Start: 01-07-2025 End: 01-07-2025 ambulatory [facility] Comment on above: DDD (degenerative disc disease), cervica l (Primary Dx); Cervical spine arthritis Start: 12-31-2024 End: 12-31-2024 ambulatory [facility] Comment on above: DDD (degenerative disc disease), cervica l (Primary Dx); Cervical spine arthritis Start: 12-24-2024 End: 12-24-2024 ambulatory 12/24/2024 11:30 AM EDT Treatment [facility] [address] [place] [address] Sabas Deutsch, PT [address] [place] [address] [facility] Start: 12-11-2024 End: 12-11-2024 ambulatory 12/11/2024 9:45 AM EDT Treatment [facility] [address] [place] [address] Sabas Deutsch, PT [address] [place] [address] [facility] Start: 11-26-2024 End: 11-26-2024 ambulatory 11/26/2024 11:15 AM EDT Treatment [facility] [address] [place] [address] Sabas Deutsch, PT [address] [place] [address] [facility] Start: 11-05-2024 End: 11-05-2024 ambulatory 11/05/2024 9:00 AM EDT Treatment [facility] [address] [place] [address] Sabas Deutsch, PT [address] [place] [address] [facility] Start: 10-21-2024 End: 10-21-2024 ambulatory 10/21/2024 10:15 AM EDT Treatment [facility] [address] [place] [address] Sabas Deutsch, PT [address] [place] [address] [facility] Start: 10-07-2024 End: 10-07-2024 ambulatory 10/07/2024 5:30 PM EDT Treatment [facility] [address] [place] [address] Sabas Deutsch, PT [address] [place] [address] DDD (degenerative disc disease), cervical (Primary Dx); Cervical spine arthritis [facility] Comment on above: DDD (degenerative disc disease), cervica l (Primary Dx); Cervical spine arthritis Start: 09-23-2024 End: 09-23-2024 ambulatory 09/23/2024 5:30 PM EDT Treatment [facility] [address] [place] [address] Sabas Deutsch, PT [address] [place] [address] [facility] Start: 09-11-2024 End: 09-11-2024 ambulatory [facility] Comment on above: DDD (degenerative disc disease), cervica l (Primary Dx); Cervical spine arthritis Start: 08-23-2024 End: 08-23-2024 ambulatory 08/23/2024 8:30 AM EST Treatment [facility] [address] [place] [address] Sabas Deutsch, PT [address] [place] [address] [facility] Start: 08-06-2024 End: 08-06-2024 ambulatory 08/06/2024 7:30 AM EST Evaluation [facility] [address] [place] [address] Sabas Deutsch, PT [address] [place] [id number] [facility] Start: 07-31-2024 End: 07-31-2024 Patient encounter procedure 07/31/2024 11:45 AM EST Procedure Visit [facility] [address] [place] [address] Arsenio Baxter MD [address] [place] [address] [facility] Start: 07-29-2024 End: 09-26-2025 DBT Breast - bilateral screening [facility] Comment on above: Expected: 07/29/2024 (Approximate), Expi res: 09/26/2025 Start: 07-29-2024 End: 07-29-2025 Erythrocyte sedimentation rate Sedimentation rate, automated Lab Routine Chronic pain of left knee Left foot pain Paresthesia of upper extremity Expected: 07/29/2024 (Approximate), Expires: 07/29/2025 [facility] Work Phone: Comment on above: Expected: 07/29/2024 (Approximate), Expi res: 07/29/2025 Start: 07-29-2024 End: 07-29-2025 Nuclear Ab [Titer] in Serum by Immunofluorescence DANILO Lab Routine Chronic pain of left knee Left foot pain Paresthesia of upper extremity Expected: 07/29/2024 (Approximate), Expires: 07/29/2025 [facility] Comment on above: Expected: 07/29/2024 (Approximate), Expi res: 07/29/2025 Start: 07-29-2024 End: 07-29-2025 Rheumatoid factor [Units/volume] in Serum or Plasma Rheumatoid factor Lab Routine Chronic pain of left knee Left foot pain Paresthesia of upper extremity Expected: 07/29/2024 (Approximate), Expires: 07/29/2025 [facility] Comment on above: Expected: 07/29/2024 (Approximate), Expi res: 07/29/2025 Start: 07-29-2024 End: 07-29-2025 Urate [Mass/volume] in Serum or Plasma Uric acid Lab Routine Chronic pain of left knee Left foot pain Paresthesia of upper extremity Expected: 07/29/2024 (Approximate), Expires: 07/29/2025 [facility] Comment on above: Expected: 07/29/2024 (Approximate), Expi res: 07/29/2025 Start: 07-29-2024 End: 07-29-2025 XR Cervical spine 4 or 5 Views XR CERVICAL SPINE AP/LAT/FLEX/EXT Imaging Routine Fall, initial encounter Paresthesia of upper extremity Expected: 07/29/2024 (Approximate), Expires: 07/29/2025 [facility] Comment on above: Expected: 07/29/2024 (Approximate), Expi res: 07/29/2025 Start: 07-29-2024 End: 07-29-2025 XR Knee - left 3 Views XR knee 3 views left Imaging Routine Chronic pain of left knee Fall, initial encounter Expected: 07/29/2024, Expires: 07/29/2025 [facility] Comment on above: Expected: 07/29/2024, Expires: Start: 07-29-2024 End: 07-29-2024 Patient encounter procedure 07/29/2024 11:00 AM EST Office Visit [facility] [address] [place] [address] Arsenio Baxter MD [address] [place] [address] Arrived [facility] Comment on above: Arrived Start: 03-10-2024 Influenza vaccination Influenza Vaccine (#1) [facility] Start: 03-07-2024 End: 03-07-2025 Alanine aminotransferase [Enzymatic activity/volume] in Serum or Plasma by With P-5'-P Alanine Aminotransferase Lab Routine Essential hypertension Expected: 03/07/2024 (Approximate), Expires: 03/07/2025 [facility] Service Area Work Phone: Comment on above: Expected: 03/07/2024 (Approximate), Expi res: 03/07/2025 Start: 03-07-2024 End: 03-07-2025 Aspartate aminotransferase [Enzymatic activity/volume] in Serum or Plasma by With P-5'-P Aspartate Aminotransferase Lab Routine Essential hypertension Expected: 03/07/2024 (Approximate), Expires: 03/07/2025 [facility] Work Phone: Comment on above: Expected: 03/07/2024 (Approximate), Expi res: 03/07/2025 Start: 03-07-2024 End: 03-07-2025 Basic metabolic 2000 panel - Serum or Plasma Basic Metabolic Panel Lab Routine Essential hypertension Expected: 03/07/2024 (Approximate), Expires: 03/07/2025 [facility] Work Phone: Comment on above: Expected: 03/07/2024 (Approximate), Expi res: 03/07/2025 Start: 03-07-2024 End: 03-07-2025 CBC panel - Blood by Automated count CBC Lab Routine Essential hypertension Expected: 03/07/2024 (Approximate), Expires: 03/07/2025 [facility] Work Phone: Comment on above: Expected: 03/07/2024 (Approximate), Expi res: 03/07/2025 Start: 03-07-2024 End: 03-07-2025 Lipid 1996 panel - Serum or Plasma Lipid Panel Lab Routine Screening for hyperlipidemia Expected: 03/07/2024 (Approximate), Expires: 03/07/2025 [facility] Work Phone: Comment on above: Expected: 03/07/2024 (Approximate), Expi res: 03/07/2025 Start: 03-07-2024 End: 03-07-2025 Thyrotropin [Units/volume] in Serum or Plasma Thyroid Stimulating Hormone Lab Routine Essential hypertension Expected: 03/07/2024 (Approximate), Expires: 03/07/2025 [facility] Work Phone: Comment on above: Expected: 03/07/2024 (Approximate), Expi res: 03/07/2025 Start: 03-04-2024 End: 03-04-2024 Patient encounter procedure 03/04/2024 4:30 PM EDT Office Visit [facility] [address] [place] [address] Arsenio Baxter MD [address] [facility] [place] [address] [facility] Start: 02-27-2024 End: 02-27-2024 Patient encounter procedure 02/27/2024 4:00 PM EDT Office Visit [facility] [address] [place] [address] Ade Marks MD [address] [place] [address] Arrived [facility] Comment on above: Arrived Start: 02-06-2024 FUV, Provider: Ernie Mcpherson, Status: Pen, Time: 8:50 AM FUV, Provider: Ernie Mcpherson, Status: Pen, Time: 8:50 AM [facility] [address] DO Work Phone: Start: 03-10-2023 COVID-19 Vaccine ( season) COVID-19 Vaccine ( season) [facility] Start: 01-11-2023 FUV, Provider: Ernie Mcpherson, Status: Pen, Time: 11:30 AM FUV, Provider: Ernie Mcpherson, Status: Pen, Time: 11:30 AM [facility] [address] DO Work Phone: Start: 11-29-2022 ECHO, Provider: [facility] ,[id number], Status: Pen, Time: 10:45 AM ECHO, Provider: YUSRA [facility] ULTRASOUND ,[id number], Status: Pen, Time: 10:45 AM [facility] [address] DO Work Phone: Start: 10-28-2022 STRESS KING, Provider: YUSRA WEBSTER NUCLEAR ,[id number], Status: Pen, Time: 11:00 AM [place], Provider: YUSRA WEBSTER NUCLEAR 01,[id number], Status: Pen, Time: 11:00 AM [facility] [address] DO Work Phone: Start: 06-28-2022 [facility] Start: 06-28-2022 [facility] Start: 02-04-2022 Screening for malignant neoplasm of breast Mammogram [facility] Start: 2015 Pneumococcal vaccination Pneumococcal Vaccine (1 of 1 - PCV) [facility] Start: 1995 Screening for malignant neoplasm of cervix [facility] Start: 1986 Screening for malignant neoplasm of cervix [facility] Start: 1984 Hepatitis B Vaccines (1 of 3 - 19+ 3-dose series) Hepatitis B Vaccines (1 of 3 - 19+ 3-dose series) [facility] Start: 1983 Diabetes mellitus screening Diabetes Screening [facility] Start: 1983 Hepatitis C screening Hepatitis C Screening [facility] Start: 1965 HIV screening HIV Screening [facility] Start: 1965 Lipid panel Lipid Panel [facility] Start: 1965 Screening for malignant neoplasm of colon [facility] Start: 1965 Yearly Adult Physical Yearly Adult Physical [facility] Dermatopathology exam Dermatopat hology exam Pathology and Cytology Timed Neoplasm of unspecified behavior of bone, soft tissue, and skin Release Upon Ordering for 1 Occurrences starting 02/27/2024 [facility] Work Phone: Comment on above: Release Upon Ordering for 1 Occurrences starting 02/27/2024 Patient referral [facility] Work Phone: Immunizations Immunization Date Immunization Notes Care Provider Vinod burns 12-25-2024 tetanus toxoid, redu tavares diphtheria toxoid, and acellular pertussis vaccine, adsorbed Sabas Deutsch PT Work Phone: [facility] 04-05-2024 influenza, seasonal, injectable, preservative free Arsenio Baxter MD Work Phone: [facility] 04-05-2024 SARS-COV-2 (COVID-19 ) vaccine, mRNA, spike protein, LNP, PF, 50 mcg/0.5 mL Arsenio Baxter MD Work Phone: [facility] 04-05-2024 influenza virus vaccine, unspecified formulation Sabas Deutsch PT Work Phone: [facility] 08-18-2023 zoster vaccine recombinant Ade Marks MD Work Phone: [facility] 05-08-2023 zoster vaccine recombinant Ade Marks MD Work Phone: [facility] 02-21-2022 Comirnaty 30 MCG/0.3 ML Intramuscular Suspension Arsenio Baxter Work Phone: [facility] 250 DO Work Phone: 06-04-2021 Pfizer Purple Cap SARS-CoV-2 Vaccination Ade Marks MD Work Phone: [facility] 05-21-2021 COVID-19 mRNAKen (Pfizer) MD Arsenio Baxter Work Phone: [facility] 09-11-2020 COVID-19 Ken Cabrales (Pfizer) MD Arsenio Baxter Work Phone: [facility] 08-21-2020 COVID-19 Ken Cabrales (Pfizer) MD Arsenio Baxter Work Phone: [facility] 08-09-2020 Pfizer Purple Cap SARS-CoV-2 Vaccination Ade Marks MD Work Phone: [facility] 07-19-2020 Pfizer Purple Cap SARS-CoV-2 Vaccination Ade Marks MD Work Phone: [facility] 04-20-2017 tetanus toxoid, redu tavares diphtheria toxoid, and acellular pertussis vaccine, adsorbed Arsenio Baxter Work Phone: [facility] 250 DO Work Phone: 11-25-2014 measles, mumps and rubella virus vaccine Arsenio Baxter Work Phone: [facility] 250 DO Work Phone: 11-25-2014 tetanus toxoid, redu tavares diphtheria toxoid, and acellular pertussis vaccine, adsorbed Arsenio Baxter Work Phone: [facility] 250 DO Work Phone: Payers Date Payer Category Payer Self-pay [id number] 2022 Unknown 2022 Managed Care (Private) [facility] [id number] 2022 Private Health Insurance [id number] .[id number]. [id number] 1965 Unknown [id number] 2.16840.1.887189.3.579. 2.593 1965 Unknown [id number] 2.16840.1.528403.3.579. 2.593 1965 Unknown [id number] 2.16840.1.477573.3.579. 2.593 1965 Unknown [id number] 2.16.840.1.175936.3.579. 2.1068 1965 Unknown [id number] 2.16.840.1.505541.3.579. 2.1068 1965 Unknown [id number] 2.16.840.1.335679.3.579. 2.356 1965 Unknown [id number] 2.16.840.1.842863.3.579. 2.356 1965 Unknown [id number] 2.16.840.1.578215.3.579. 2.727 1965 Unknown [id number] 2.16840.1.889938.3.579. 2.727 1965 Unknown [id number] 2.840.1.336083.3.579. 2.727 1965 Unknown [id number] 2.840.1.872641.3.579. 2.727 1965 Unknown [id number] 2.16840.1.404279.3.579. 2.727 1965 Unknown [id number] 2.16840.1.390623.3.579. 2.727 1965 Unknown [id number] 2.16840.1.799393.3.579. 2.727 1965 Unknown [id number] 2.16840.1.651305.3.579. 2.727 1965 Unknown [id number] 2.16840.1.648006.3.579. 2.727 1965 Unknown [id number] 2.16.840.1.259534.3.579. 2.727 1965 Unknown [id number] 2.16.840.1.086008.3.579. 2.727 1965 Unknown [id number] 2.16.840.1.874526.3.579. 2.1244 1965 Unknown [id number] 2.16.840.1.554622.3.579. 2.1259 1965 Unknown [id number] 2.16.840.1.387290.3.579. 2.125 1965 Unknown [id number] 2.16.840.1.677511.3.579. 2.1259 1965 Unknown [id number] 2.16.840.1.236566.3.579. 2.125 1965 Unknown [id number] 2.16.840.1.245167.3.579. 2.125 1965 Unknown [id number] 2.16.840.1.399921.3.579. 2.1258 1965 Unknown [id number] 2.16840.1.625295.3.579. 2.1258 1965 Unknown [id number] 2.16840.1.035633.3.579. 2.1258 1965 Unknown [id number] 2.16840.1.028902.3.579. 2.125 1965 Unknown [id number] 2.16.840.1.718053.3.579. 2.1258 1965 Unknown [id number] 2.16.840.1.605126.3.579. 2.1258 1965 Unknown [id number] 2.16840.1.405107.3.579. 2.125 1965 Unknown [id number] 2.16840.1.194267.3.579. 2.125 1965 Unknown [id number] 2.16.840.1.829487.3.579. 2.125 1965 Unknown [id number] 2.16840.1.732675.3.579. 2.125 1965 Unknown [id number] 2.16.840.1.912316.3.579. 2.1258 1965 Unknown [id number] 2.16.840.1.552405.3.579. 2.1258 1965 Unknown [id number] 2.16.840.1.304542.3.579. 2.1258 1965 Unknown [id number] 2.16.840.1.953500.3.579. 2.1258 1965 Unknown [id number] 2.16.840.1.076516.3.579. 2.1258 1965 Unknown [id number] 2.16.840.1.077058.3.579. 2.1258 1965 Unknown [id number] 2.16.840.1.615165.3.579. 2.9 1959 Unknown [id number] 1959 Unknown [id number] Self-pay Self Pay [id number] Unknown [id number] 2.16.840.1.278313.3.579. 2.531 Social History Date Type Detail Facility Start: 09-28-2021 End: 02-28-2023 Tobacco smoking status MOIS Never smoked tobacco (finding) [facility] Start: 1965 Sex Assigned At Female F [facility] Start: 02-28-2023 End: 02-28-2024 Caffeine use Caffeine use [place] [address] DO Work Phone: Start: 02-28-2023 End: 09-11-2023 Tobacco use and exposure Smokeless tobacco non-user [facility] Start: 02-28-2024 End: 07-31-2024 Alcoholic beverage intake Current drinker of alcohol (finding) [facility] Start: 02-28-2023 End: 02-28-2024 Tobacco use panel [facility] Start: 02-28-2023 Alcohol Comment Caffeine intak e: 2-3 cups per day coffee, tea, SPARK [facility] Start: 1965 Sex assigned at Not on file [facility] Start: 09-11-2023 Alcohol Comment social [facility] Work Phone: Start: 02-26-2024 End: 03-07-2024 Exposure to SARS-CoV-2 (event) Not sure [facility] Start: 07-30-2024 Sex Female (finding) [facility] Start: 09-08-2022 Sex Female [facility] Goals Date Patient Goal Desired Activity /State Clinical Notes 02-27-2024 to 03-18-2025 Sabas Deutsch, PT - 03/18/2025 9:30 AM Shawna Mcpherson MD - 03/18/2025 8:30 AM EDTPatient InstructionsSabas Deutsch, PT - 03/04/2025 9:15 AM EDTDathad Deutsch, PT - 02/25/2025 7:30 AM EDTAttachments Note Date & Type Note Facility 03-18-2025 History of Present illness Narrative Images from the original note were not [...] 59 yo female presents per PCP Arsenio Baxter MD for cervical OA/pain. Patient reports progressive cervical pain and newer complaints of occipital tenderness, tension type headaches, and bilateral UE paresthesia including numbness/tingling in the C5-T1 UE distribution. Referral for PT evaluation and treatment per PCP Arsenio Baxter MD. Pain: Presents 1-week post last PT session that was conducted on 03/11/25. Reports minimal pain until doing gardening including pulling weeds with moderate increased pain at the right upper trapezius and lower cervical spine. Denies radiculopathy. 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 Presents 1-week post last PT session that was conducted on 03/11/25. Reports minimal pain until doing gardening including pulling weeds with moderate increased pain at the right upper trapezius and lower cervical spine. Denies radiculopathy. AROM cervical spine and paraspinal tone is WFL/WNL following session. Working toward reducing frequency of PT and progressing toward independent management of this condition. Updated PT POC as above. Follow-up in 1-week if necessary. Plan: Recommend continuation of outpatient PT 1-3 times/month for up to 3 additional months per above updated PT POC 03/11/25-DBO) I hereby deem this POC medically necessary. Please sign below and fax back to the number below. Physician Signature: Date: documented in this encounter [facility] 03-18-2025 History of Present illness Narrative HPI Patient is in the office for [...] basic metabolic profile is ordered. Patient follows low-salt diet and maintains active lifestyle. 2-minimal overweight, [...] Scribe Attestation By signing my name below, I, Deysi Mendez LPN , [place] attest that this documentation has been prepared under the direction and in the presence of Ernie Mcpherson MD. Provider Attestation - Scribe documentation All medical record entries made by the Scribe were at my direction and personally dictated by me. I have reviewed the chart and agree that the record accurately reflects my personal performance of the history, physical exam, discussion and plan. documented in this encounter [facility] Work Phone: 03-18-2025 Instructions Deysi Silverio LPN - 03/18/2025 8:30 AM [...] year follow up documented in this encounter [facility] Work Phone: 03-04-2025 History of Present illness Narrative Physical Therapy Physical Therapy Treatment Visit Patient Name: Anushka Perdomo Today's Date: 03/04/2025 Encounter Diagnoses Name Primary? DDD (degenerative disc disease), cervical Yes Cervical spine arthritis Time In: 9:15 am Time out: 10:15 am Supervised Time: 45 Min Total Time: 60 Min Visit Number: 17 (PT- 15% co-insurance No co-pay # visits based on medical necessity NPAR) Chief Complaint: Chronic neck pain Cervical paraspinal spasm Bilateral UE cervical radiculopathy PRECAUTIONS: As Tolerated Subjective History: 59 yo female presents per PCP Arsenio Baxter MD for cervical OA/pain. Patient reports progressive cervical pain and newer complaints of occipital tenderness, tension type headaches, and bilateral UE paresthesia including numbness/tingling in the C5-T1 UE distribution. Referral for PT evaluation and treatment per PCP Arsenio Baxter MD. Pain: Presents 1-week post last PT session that was conducted on 02/25/25. Reports doing better this week with decreased soreness. Improving tolerance to stretching. Highly compliant with HEP Overall Progress: Improving Objective: Re-Examination performed on 02/07/25-O Reports increased tolerance to ADL, Sleep, and Recreation. AROM cervical spine improving at 75 degrees rotation and 38 degrees side-bending. Also paraspinal tone is now mildly increased as compared to moderately at time of initial evaluation. Neck Index scores 26 compared to 46 at IE indicative of [...] strengthening, ergonomic, and postural training to assist assisted management (10 Min-HEP attached to exercise grid) Therapeutic Activity: Functional Activity Training (PRN) Neuromuscular Re-education: Neuromuscular reeducation including muscle facilitation, ergonomic and postural training, core strengthening (15 Min) Modalities: Electrical Stimulation/ice seated to mid to lower cervical and upper thoracic spine IFC High/Low Sweep for inflammation and pain control (15 Min); UltraSound-2 MHz 1.5 w/cm2 at mid to lower cervical spine (PRN) Goals: Short Term Goals: To be met by 04/08/25 The patient to demonstrate 50% reduction in pain to at worst 4/10 intensity with good reduction in UE/LE paresthesia symptoms in 1-2 weeks and no paresthesia in 2-4 weeks (Goal in progress 02/07/25-DBO) The patient to achieve functional cervical rotation at 80 degrees or better, normal upper limb neural mobility, and cervical postural and scapular strength of 4+/5 in 4-6 weeks (Goal in progress 02/07/25-DBO) The patient to score <20% residual functional impairment via Neck Index f/u difficulty questionnaire in 4-8 weeks (Goal in progress 02/07/25-DBO) The patient to demonstrate good compliance to ergonomic and postural recommendations and have prophylactic management plan in place including routine home management via flexibility and strength exercises to reduce risk of future exacerbations to be met by conclusion of PT expected in 4-8 weeks (Goal in progress 02/07/25-DBO) Rehab Potential: Good PT Assessment: The patient has participate in 17 outpatient PT sessions since start of care on 08/06/24 for subacute and progressive neck pain, spasm, and upper extremity paresthesia per referral of Arsenio Baxter MD. Presents 1-week post last PT session that was conducted on 02/25/25. Reports doing better this week with decreased soreness. Improving tolerance to stretching. Highly compliant with HEP AROM cervical spine and paraspinal tone is WFL/WNL following session. Working toward reducing frequency of PT and progressing toward independent management of this condition. Plan: Recommend continuation of outpatient PT 1-3 times/month for up to 3 additional months per above updated PT POC 02/07/25-DBO) I hereby deem this POC medically necessary. Please sign below and fax back to the number below. Physician Signature: Date: documented in this encounter [facility] 02-25-2025 History of Present illness Narrative Physical Therapy Physical Therapy Treatment Visit Patient Name: Anushka Perdomo Today's Date: 02/25/2025 Encounter Diagnoses Name Primary? DDD (degenerative disc disease), cervical Yes Cervical spine arthritis Time In: 7:30 am Time out: 8:30 am Supervised Time: 45 Min Total Time: 60 Min Visit Number: 16 (PT- 15% co-insurance No co-pay # visits based on medical necessity NPAR) Chief Complaint: Chronic neck pain Cervical paraspinal spasm Bilateral UE cervical radiculopathy PRECAUTIONS: As Tolerated Subjective History: 59 yo female presents per PCP Arsenio Baxter MD for cervical OA/pain. Patient reports progressive cervical pain and newer complaints of occipital tenderness, tension type headaches, and bilateral UE paresthesia including numbness/tingling in the C5-T1 UE distribution. Referral for PT evaluation and treatment per PCP Arsenio Baxter MD. Pain: Presents 1-week post last PT session that was conducted on 02/18/25. Reports positive response to last session with mildly decreased cervical pain and upper trapezius tone. Continues to report initial 4-12 hours after session generally causes increased symptoms then it calms down. Today's treatment was focused on more gentle manual therapy techniques and decreased focus on deep pressure and point release techniques. Pain at arrival 3-4/10 right mid to lower cervical, medial scapula and upper trapezius. Overall Progress: Improving Objective: Re-Examination performed on 02/07/25-DBO Reports increased tolerance to ADL, Sleep, and Recreation. AROM cervical spine improving at 75 degrees rotation and 38 degrees side-bending. Also paraspinal tone is now mildly increased as compared to moderately at time of initial evaluation. Neck Index scores 26 compared to 46 at IE indicative of [...] strengthening, ergonomic, and postural training to assist assisted management (10 Min-HEP attached to exercise grid) Therapeutic Activity: Functional Activity Training (PRN) Neuromuscular Re-education: Neuromuscular reeducation including muscle facilitation, ergonomic and postural training, core strengthening (15 Min) Modalities: Electrical Stimulation/ice seated to mid to lower cervical and upper thoracic spine IFC High/Low Sweep for inflammation and pain control (20 Min); UltraSound-2 MHz 1.5 w/cm2 at mid to lower cervical spine (PRN) Goals: Short Term Goals: To be met by 04/08/25 The patient to demonstrate 50% reduction in pain to at worst 4/10 intensity with good reduction in UE/LE paresthesia symptoms in 1-2 weeks and no paresthesia in 2-4 weeks (Goal in progress 02/07/25-DBO) The patient to achieve functional cervical rotation at 80 degrees or better, normal upper limb neural mobility, and cervical postural and scapular strength of 4+/5 in 4-6 weeks (Goal in progress 02/07/25-DBO) The patient to score <20% residual functional impairment via Neck Index f/u difficulty questionnaire in 4-8 weeks (Goal in progress 02/07/25-DBO) The patient to demonstrate good compliance to ergonomic and postural recommendations and have prophylactic management plan in place including routine home management via flexibility and strength exercises to reduce risk of future exacerbations to be met by conclusion of PT expected in 4-8 weeks (Goal in progress 02/07/25-DBO) Rehab Potential: Good PT Assessment: The patient has participate in 16 outpatient PT sessions since start of care on 08/06/24 for subacute and progressive neck pain, spasm, and upper extremity paresthesia per referral of Arsenio Baxter MD. Presents 1-week post last PT session that was conducted on 02/18/25. Reports positive response to last session with mildly decreased cervical pain and upper trapezius tone. Continues to report initial 4-12 hours after session generally causes increased symptoms then it calms down. Today's treatment was focused on more gentle manual therapy techniques and decreased focus on deep pressure and point release techniques. Pain at arrival 3-4/10 right mid to lower cervical, medial scapula and upper trapezius. Moderate right cervical spine and upper trapezius tightness and spasm resolved to WNL following extensive manual therapy and mobilization. Pain levels back to baseline 0-2/10 intensity by conclusion of session. Encouraged continuation of HEP. Continue per PT POC. Plan: Recommend continuation of outpatient PT 1-3 times/month for up to 3 additional months per above updated PT POC 02/07/25-DBO) I hereby deem this POC medically necessary. Please sign below and fax back to the number below. Physician Signature: Date: documented in this encounter [facility] 02-18-2025 History of Present illness Narrative Physical Therapy Physical Therapy Treatment Visit Patient Name: Anushka Perdomo Today's Date: 02/18/2025 Encounter Diagnoses Name Primary? DDD (degenerative disc disease), cervical Yes Cervical spine arthritis Time In: 10:45 am Time out: 11:45 pm Supervised Time: 45 Min Total Time: 60 Min Visit Number: 15 (PT- 15% co-insurance No co-pay # visits based on medical necessity NPAR) Chief Complaint: Chronic neck pain Cervical paraspinal spasm Bilateral UE cervical radiculopathy PRECAUTIONS: As Tolerated Subjective History: 59 yo female presents per PCP Arsenio Baxter MD for cervical OA/pain. Patient reports progressive cervical pain and newer complaints of occipital tenderness, tension type headaches, and bilateral UE paresthesia including numbness/tingling in the C5-T1 UE distribution. Referral for PT evaluation and treatment per PCP Arsenio Baxter MD. Pain: Presents 11-days post last PT session that was conducted on 02/07/25. Reports neck pain and tightness was improved for 3-4 days with minimal symptoms. Tightness Increased yard work with increased right sided neck pain and Upper Trap spasm leading to today's PT consult. Overall Progress: Improving Objective: Re-Examination performed on 02/07/25-DBO Reports increased tolerance to ADL, Sleep, and Recreation. AROM cervical spine improving at 75 degrees rotation and 38 degrees side-bending. Also paraspinal tone is now mildly increased as compared to moderately at time of initial evaluation. Neck Index scores 26 compared to 46 at IE indicative of [...] strengthening, ergonomic, and postural training to assist assisted management (10 Min-HEP attached to exercise grid) Therapeutic Activity: Functional Activity Training (PRN) Neuromuscular Re-education: Neuromuscular reeducation including muscle facilitation, ergonomic and postural training, core strengthening (15 Min) Modalities: Electrical Stimulation/ice seated to mid to lower cervical and upper thoracic spine IFC High/Low Sweep for inflammation and pain control (20 Min); UltraSound-2 MHz 1.5 w/cm2 at mid to lower cervical spine (PRN) Goals: Short Term Goals: To be met by 04/08/25 The patient to demonstrate 50% reduction in pain to at worst 4/10 intensity with good reduction in UE/LE paresthesia symptoms in 1-2 weeks and no paresthesia in 2-4 weeks (Goal in progress 02/07/25-DBO) The patient to achieve functional cervical rotation at 80 degrees or better, normal upper limb neural mobility, and cervical postural and scapular strength of 4+/5 in 4-6 weeks (Goal in progress 02/07/25-DBO) The patient to score <20% residual functional impairment via Neck Index f/u difficulty questionnaire in 4-8 weeks (Goal in progress 02/07/25-DBO) The patient to demonstrate good compliance to ergonomic and postural recommendations and have prophylactic management plan in place including routine home management via flexibility and strength exercises to reduce risk of future exacerbations to be met by conclusion of PT expected in 4-8 weeks (Goal in progress 02/07/25-DBO) Rehab Potential: Good PT Assessment: The patient has participate in 15 outpatient PT sessions since start of care on 08/06/24 for subacute and progressive neck pain, spasm, and upper extremity paresthesia per referral of Arsenio Baxter MD. Presents 11-days post last PT session that was conducted on 02/07/25. Reports neck pain and tightness was improved for 3-4 days with minimal symptoms. Tightness Increased yard work with increased right sided neck pain and Upper Trap spasm leading to today's PT consult. Moderate right cervical spine and upper trapezius tightness and spasm resolved to WNL following extensive manual therapy and mobilization. Overall, consistent progress with improving independence in management of this condition. Continue per PT POC. Plan: Recommend continuation of outpatient PT 1-3 times/month for up to 3 additional months per above updated PT POC 02/07/25-DBO) I hereby deem this POC medically necessary. Please sign below and fax back to the number below. Physician Signature: Date: documented in this encounter [facility] 01-07-2025 History of Present illness Narrative Physical Therapy Physical Therapy Evaluation Visit Patient Name: Anushka Perdomo Today's Date: 01/07/2025 Encounter Diagnoses Name Primary? DDD (degenerative disc disease), cervical Yes Cervical spine arthritis Time In: 3:30 am Time out: 4:30 pm Supervised Time: 40 Min Total Time: 60 Min Visit Number: 13 (PT- 15% co-insurance No co-pay # visits based on medical necessity NPAR) Chief Complaint: Chronic neck pain Cervical paraspinal spasm Bilateral UE cervical radiculopathy PRECAUTIONS: As Tolerated Subjective History: 59 yo female presents per PCP Arsenio Baxter MD for cervical OA/pain. Patient reports progressive cervical pain and newer complaints of occipital tenderness, tension type headaches, and bilateral UE paresthesia including numbness/tingling in the C5-T1 UE distribution. Referral for PT evaluation and treatment per PCP Arsenio Baxter MD. Pain: Presents 7-days post last PT session that was conducted on 12/31/24. Reports pulling large weeds and small well rooted trees yesterday/this morning with moderate increased right sided paraspinal tone/spasm. 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 Overall Progress: Improving Objective: Re-Examination performed on 12/17/24-DBO Reports moderate exacerbation in right sided neck pain and paresthesia Remains diligent and compliant with HEP. Decreased need for manual therapy and mobilization due to diligent performance of HEP. Has noted increased tolerance to ADL, Sleep, and Recreation. AROM cervical spine improving at 75 degrees rotation and 35 degrees side-bending. Also paraspinal tone is now mildly increased as compared to moderately at time of initial evaluation. Neck Index scores 28 compared to 46 at IE indicative of goo functional impairment and is consistent with PT [...] strengthening, ergonomic, and postural training to assist assisted management (10 Min-HEP attached to exercise grid) Therapeutic Activity: Functional Activity Training (PRN) Neuromuscular Re-education: Neuromuscular reeducation including muscle facilitation, ergonomic and postural training, core strengthening (10 Min) Modalities: Electrical Stimulation/ice seated to mid to lower cervical and upper thoracic spine IFC High/Low Sweep for inflammation and pain control (20 Min); UltraSound-2 MHz 1.5 w/cm2 at mid to lower cervical spine (PRN) Goals: Short Term Goals: To be met by 04/08/25 The patient to demonstrate 50% reduction in pain to at worst 4/10 intensity with good reduction in UE/LE paresthesia symptoms in 1-2 weeks and no paresthesia in 2-4 weeks The patient to achieve functional cervical rotation at 80 degrees or better, normal upper limb neural mobility, and cervical postural and scapular strength of 4+/5 in 4-6 weeks The patient to score <20% residual functional impairment via Neck Index f/u difficulty questionnaire in 4-8 weeks The patient to demonstrate good compliance to ergonomic and postural recommendations and have prophylactic management plan in place including routine home management via flexibility and strength exercises to reduce risk of future exacerbations to be met by conclusion of PT expected in 4-8 weeks Rehab Potential: Good PT Assessment: The patient has participate in 13 outpatient PT sessions since start of care on 08/06/24 for subacute and progressive neck pain, spasm, and upper extremity paresthesia per referral of Arsenio Baxter MD. Presents 7-days post last PT session that was conducted on 12/31/24. Reports pulling large weeds and small well rooted trees yesterday/this morning with moderate increased right sided paraspinal tone/spasm. 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 Encouraged routine performance of HEP. Pain reduced to 1-2/10 by conclusion of session with right rotation improved from 70 degrees to 85 degrees. Continue per PT POC. Plan: Recommend continuation of outpatient PT 1-4 times/month for up to 3 additional months per above updated PT POC (12/17/24-DBO) I hereby deem this POC medically necessary. Please sign below and fax back to the number below. Physician Signature: Date: documented in this encounter [facility] 12-31-2024 History of Present illness Narrative Physical Therapy Physical Therapy Evaluation Visit Patient Name: Anushka Perdomo Today's Date: 12/31/2024 Encounter Diagnoses Name Primary? DDD (degenerative disc disease), cervical Yes Cervical spine arthritis Time In: 4:30 am Time out: 5:30 pm Supervised Time: 40 Min Total Time: 60 Min Visit Number: 12 (PT- 15% co-insurance No co-pay # visits based on medical necessity NPAR) Chief Complaint: Chronic neck pain Cervical paraspinal spasm Bilateral UE cervical radiculopathy PRECAUTIONS: As Tolerated Subjective History: 59 yo female presents per PCP Arsenio Baxter MD for cervical OA/pain. Patient reports progressive cervical pain and newer complaints of occipital tenderness, tension type headaches, and bilateral UE paresthesia including numbness/tingling in the C5-T1 UE distribution. Referral for PT evaluation and treatment per PCP Arsenio Baxter MD. Pain: Presents 7-days post last PT session that was conducted on 12/24/24. Reports symptoms have been well managed with good compliance with HEP. 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 Encouraged routine performance of HEP. Pain at arrival 2-09/16 and post session 010 Overall Progress: Improving Objective: Re-Examination performed on 12/17/24-[facility] Reports moderate exacerbation in right sided neck pain and paresthesia Remains diligent and compliant with HEP. Decreased need for manual therapy and mobilization due to diligent performance of HEP. Has noted increased tolerance to ADL, Sleep, and Recreation. AROM cervical spine improving at 75 degrees rotation and 35 degrees side-bending. Also paraspinal tone is now mildly increased as compared to moderately at time of initial evaluation. Neck Index scores 28 compared to 46 at IE indicative of goo functional impairment and is consistent with PT [...] strengthening, ergonomic, and postural training to assist quality assurance manager management (10 Min-HEP attached to exercise grid) Therapeutic Activity: Functional Activity Training (PRN) Neuromuscular Re-education: Neuromuscular reeducation including muscle facilitation, ergonomic and postural training, core strengthening (10 Min) Modalities: Electrical Stimulation/ice seated to mid to lower cervical and upper thoracic spine IFC High/Low Sweep for inflammation and pain control (20 Min); UltraSound-2 MHz 1.5 w/cm2 at mid to lower cervical spine (PRN) Goals: Short Term Goals: To be met by 04/08/25 The patient to demonstrate 50% reduction in pain to at worst 4/10 intensity with good reduction in UE/LE paresthesia symptoms in 1-2 weeks and no paresthesia in 2-4 weeks The patient to achieve functional cervical rotation at 80 degrees or better, normal upper limb neural mobility, and cervical postural and scapular strength of 4+/5 in 4-6 weeks The patient to score <20% residual functional impairment via Neck Index f/u difficulty questionnaire in 4-8 weeks The patient to demonstrate good compliance to ergonomic and postural recommendations and have prophylactic management plan in place including routine home management via flexibility and strength exercises to reduce risk of future exacerbations to be met by conclusion of PT expected in 4-8 weeks Rehab Potential: Good PT Assessment: The patient has participate in 12 outpatient PT sessions since start of care on 08/06/24 for subacute and progressive neck pain, spasm, and upper extremity paresthesia per referral of Arsenio Baxter MD. Presents 7-days post last PT session that was conducted on 12/17/24. Presents 7-days post last PT session that was conducted on 12/24/24. Reports symptoms have been well managed with good compliance with HEP. 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 Encouraged routine performance of HEP. Pain at arrival 2-3/10 and post session 0/10 Continue per PT POC. Plan: Recommend continuation of outpatient PT 1-4 times/month for up to 3 additional months per above updated PT POC (12/17/24-DBO) I hereby deem this POC medically necessary. Please sign below and fax back to the number below. Physician Signature: Date: documented in this encounter [facility] 12-24-2024 History of Present illness Narrative Physical Therapy Physical Therapy Evaluation Visit Patient Name: Anushka Perdomo Today's Date: 12/24/2024 Encounter Diagnoses Name Primary? DDD (degenerative disc disease), cervical Yes Cervical spine arthritis Time In: 11:30 am Time out: 12:30 pm Supervised Time: 40 Min Total Time: 60 Min Visit Number: 11 (PT- 15% co-insurance No co-pay # visits based on medical necessity NPAR) Chief Complaint: Chronic neck pain Cervical paraspinal spasm Bilateral UE cervical radiculopathy PRECAUTIONS: As Tolerated Subjective History: 59 yo female presents per PCP Arsenio Baxter MD for cervical OA/pain. Patient reports progressive cervical pain and newer complaints of occipital tenderness, tension type headaches, and bilateral UE paresthesia including numbness/tingling in the C5-T1 UE distribution. Referral for PT evaluation and treatment per PCP Arsenio Baxter MD. Pain: Presents 7-days post last PT session that was conducted on 12/17/24. Reports remarkable improvement after last session presented with 7-8/10 intensity pain. Today presents with right sided stiffness but is overall improved from moderate exacerbation last week. Overall Progress: Improving Objective: Re-Examination performed on 12/17/24-[facility] Reports moderate exacerbation in right sided neck pain and paresthesia Remains diligent and compliant with HEP. Decreased need for manual therapy and mobilization due to diligent performance of HEP. Has noted increased tolerance to ADL, Sleep, and Recreation. AROM cervical spine improving at 75 degrees rotation and 35 degrees side-bending. Also paraspinal tone is now mildly increased as compared to moderately at time of initial evaluation. Neck Index scores 28 compared to 46 at IE indicative of goo functional impairment and is consistent with PT [...] strengthening, ergonomic, and postural training to assist quality assurance manager management (10 Min-HEP attached to exercise grid) Therapeutic Activity: Functional Activity Training (PRN) Neuromuscular Re-education: Neuromuscular reeducation including muscle facilitation, ergonomic and postural training, core strengthening (10 Min) Modalities: Electrical Stimulation/ice seated to mid to lower cervical and upper thoracic spine IFC High/Low Sweep for inflammation and pain control (20 Min); UltraSound-2 MHz 1.5 w/cm2 at mid to lower cervical spine (PRN) Goals: Short Term Goals: To be met by 04/08/25 The patient to demonstrate 50% reduction in pain to at worst 4/10 intensity with good reduction in UE/LE paresthesia symptoms in 1-2 weeks and no paresthesia in 2-4 weeks The patient to achieve functional cervical rotation at 80 degrees or better, normal upper limb neural mobility, and cervical postural and scapular strength of 4+/5 in 4-6 weeks The patient to score <20% residual functional impairment via Neck Index f/u difficulty questionnaire in 4-8 weeks The patient to demonstrate good compliance to ergonomic and postural recommendations and have prophylactic management plan in place including routine home management via flexibility and strength exercises to reduce risk of future exacerbations to be met by conclusion of PT expected in 4-8 weeks Rehab Potential: Good PT Assessment: The patient has participate in 11 outpatient PT sessions since start of care on 08/06/24 for subacute and progressive neck pain, spasm, and upper extremity paresthesia per referral of Arsenio Baxter MD. Presents 7-days post last PT session that was conducted on 12/17/24. Reports remarkable improvement after last session presented with 7-8/10 intensity pain. Today presents with right sided stiffness but is overall improved from moderate exacerbation last week. Full cervical AROM and pain reduced to 0-1/10 intensity by conclusion of PT. Discussed continuation of HEP and various strategies to deal with stress. Follow-up in 2-4 weeks PRN. Follow-up tentatively set for 1-2-weeks with recommendation that patient cancel if doing well. Progression toward independent management of this condition. Plan: Recommend continuation of outpatient PT 1-4 times/month for up to 3 additional months per above updated PT POC (12/17/24-DBO) I hereby deem this POC medically necessary. Please sign below and fax back to the number below. Physician Signature: Date: documented in this encounter [facility] 12-17-2024 History of Present illness Narrative Physical Therapy Physical Therapy Evaluation Visit Patient Name: Anushka Perdomo Today's Date: 12/17/2024 Encounter Diagnoses Name Primary? DDD (degenerative disc disease), cervical Yes Cervical spine arthritis Time In: 12:30 am Time out: 1:30 am Supervised Time: 40 Min Total Time: 60 Min Visit Number: 10 (PT- 15% co-insurance No co-pay # visits based on medical necessity NPAR) Chief Complaint: Chronic neck pain Cervical paraspinal spasm Bilateral UE cervical radiculopathy PRECAUTIONS: As Tolerated Subjective History: 59 yo female presents per PCP Arsenio Baxter MD for cervical OA/pain. Patient reports progressive cervical pain and newer complaints of occipital tenderness, tension type headaches, and bilateral UE paresthesia including numbness/tingling in the C5-T1 UE distribution. Referral for PT evaluation and treatment per PCP Arsenio Baxter MD. Pain: Presents 6-days post last PT session that was conducted on 12/11/24. Reports exacerbation of neck pain/stiffness upon waking on 12/12/24. Called to get in for treatment on 12/16/24. Presents with reports of moderate right sided spasm with pain up to 6/10 intensity with mild and occasionally moderate right UE C67 paresthesia Overall Progress: Improving Objective: Re-Examination performed on 12/17/24-DBO Reports moderate exacerbation in right sided neck pain and paresthesia Remains diligent and compliant with HEP. Decreased need for manual therapy and mobilization due to diligent performance of HEP. Has noted increased tolerance to ADL, Sleep, and Recreation. AROM cervical spine improving at 75 degrees rotation and 35 degrees side-bending. Also paraspinal tone is now mildly increased as compared to moderately at time of initial evaluation. Neck Index scores 28 compared to 46 at IE indicative of goo functional impairment and is consistent with PT [...] strengthening, ergonomic, and postural training to assist assisted management (10 Min-HEP attached to exercise grid) Therapeutic Activity: Functional Activity Training (PRN) Neuromuscular Re-education: Neuromuscular reeducation including muscle facilitation, ergonomic and postural training, core strengthening (10 Min) Modalities: Electrical Stimulation/ice seated to mid to lower cervical and upper thoracic spine IFC High/Low Sweep for inflammation and pain control (20 Min); UltraSound-2 MHz 1.5 w/cm2 at mid to lower cervical spine (PRN) Goals: Short Term Goals: To be met by 04/08/25 The patient to demonstrate 50% reduction in pain to at worst 4/10 intensity with good reduction in UE/LE paresthesia symptoms in 1-2 weeks and no paresthesia in 2-4 weeks The patient to achieve functional cervical rotation at 80 degrees or better, normal upper limb neural mobility, and cervical postural and scapular strength of 4+/5 in 4-6 weeks The patient to score <20% residual functional impairment via Neck Index f/u difficulty questionnaire in 4-8 weeks The patient to demonstrate good compliance to ergonomic and postural recommendations and have prophylactic management plan in place including routine home management via flexibility and strength exercises to reduce risk of future exacerbations to be met by conclusion of PT expected in 4-8 weeks Rehab Potential: Good PT Assessment: The patient has participate in 9 outpatient PT sessions since start of care on 08/06/24 for subacute and progressive neck pain, spasm, and upper extremity paresthesia per referral of Arsenio Baxter MD. Presents 6-days post last PT session that was conducted on 12/11/24. Reports exacerbation of neck pain/stiffness upon waking on 12/12/24. Called to get in for treatment on 12/16/24. Presents with reports of Full cervical AROM and pain reduced to 0-1/10 intensity by conclusion of PT. Discussed continuation of HEP and various strategies to deal with stress. Follow-up in 2-4 weeks PRN. Follow-up tentatively set for 2-weeks with recommendation that patient cancel if doing well. Progression toward independent management of this condition. Plan: Recommend continuation of outpatient PT 1-4 times/month for up to 3 additional months per above updated PT POC (12/17/24-DBO) I hereby deem this POC medically necessary. Please sign below and fax back to the number below. Physician Signature: Date: documented in this encounter [facility] 12-11-2024 History of Present illness Narrative Physical Therapy Physical Therapy Evaluation Visit Patient Name: Anushka Perdomo Today's Date: 12/11/2024 Encounter Diagnoses Name Primary? DDD (degenerative disc disease), cervical Yes Cervical spine arthritis Time In: 9:45 am Time out: 10:45 am Supervised Time: 40 Min Total Time: 60 Min Visit Number: 9 (PT- 15% co-insurance No co-pay # visits based on medical necessity NPAR) Chief Complaint: Chronic neck pain Cervical paraspinal spasm Bilateral UE cervical radiculopathy PRECAUTIONS: As Tolerated Subjective History: 59 yo female presents per PCP Arsenio Baxter MD for cervical OA/pain. Patient reports progressive cervical pain and newer complaints of occipital tenderness, tension type headaches, and bilateral UE paresthesia including numbness/tingling in the C5-T1 UE distribution. Referral for PT evaluation and treatment per PCP Arsenio Baxter MD. Pain: Presents 2+ weeks post last PT session that was conducted on 11/26/24. Excellent response to session with overall decreased cervical and thoracic pain, spasm, and functional impairments including better sleep. Patient is highly compliant with HEP. Reports increased tolerance to yard work and household vacuuming, sweeping, and laundry. Overall Progress: Improving Objective: Re-Examination performed on 11/11/24-DBO Reports 75% improvement all areas with this episode of care and is please with PT intervention progress. Remains diligent and compliant with HEP. Decreased need for manual therapy and mobilization due to diligent performance of HEP. Has noted increased tolerance to ADL, Sleep, and Recreation. AROM cervical spine improving at 75 degrees rotation and 35 degrees side-bending. Also paraspinal tone is now mildly increased as compared to moderately at time of initial evaluation. Neck Index scores 28 compared to 46 at IE indicative of goo functional impairment and is consistent with PT [...] strengthening, ergonomic, and postural training to assist quality assurance manager management (10 Min-HEP attached to exercise grid) Therapeutic Activity: Functional Activity Training (PRN) Neuromuscular Re-education: Neuromuscular reeducation including muscle facilitation, ergonomic and postural training, core strengthening (10 Min) Modalities: Electrical Stimulation/ice seated to mid to lower cervical and upper thoracic spine IFC High/Low Sweep for inflammation and pain control (20 Min); UltraSound-2 MHz 1.5 w/cm2 at mid to lower cervical spine (PRN) Goals: Short Term Goals: To be met by 10/07/24 The patient to demonstrate 50% reduction in pain to at worst 4/10 intensity with good reduction in UE/LE paresthesia symptoms in 1-2 weeks and no paresthesia in 2-4 weeks The patient to achieve functional cervical rotation at 80 degrees or better, normal upper limb neural mobility, and cervical postural and scapular strength of 4+/5 in 4-6 weeks The patient to score <20% residual functional impairment via Neck Index f/u difficulty questionnaire in 4-8 weeks The patient to demonstrate good compliance to ergonomic and postural recommendations and have prophylactic management plan in place including routine home management via flexibility and strength exercises to reduce risk of future exacerbations to be met by conclusion of PT expected in 4-8 weeks Rehab Potential: Good PT Assessment: The patient has participate in 9 outpatient PT sessions since start of care on 08/06/24 for subacute and progressive neck pain, spasm, and upper extremity paresthesia per referral of Arsenio Baxter MD. Presents 2+ weeks post last PT session that was conducted on 11/26/24. Excellent response to session with overall decreased cervical and thoracic pain, spasm, and functional impairments including better sleep. Patient is highly compliant with HEP. Reports increased tolerance to yard work and household vacuuming, sweeping, and laundry. Full cervical AROM and pain reduced to 0-1/10 intensity by conclusion of PT. Discussed continuation of HEP and various strategies to deal with stress. Follow-up in 2-4 weeks PRN. Follow-up tentatively set for 2-weeks with recommendation that patient cancel if doing well. Progression toward independent management of this condition. Plan: Recommend continuation of outpatient PT 1-4 times/month for up to 3 additional months per above updated PT POC (11/11/24-DBO) I hereby deem this POC medically necessary. Please sign below and fax back to the number below. Physician Signature: Date: documented in this encounter [facility] 11-26-2024 History of Present illness Narrative Physical Therapy Physical Therapy Evaluation Visit Patient Name: Anushka Perdomo Today's Date: 11/26/2024 Encounter Diagnoses Name Primary? DDD (degenerative disc disease), cervical Yes Cervical spine arthritis Time In: 11:15 pm Time out: 12:00 pm Supervised Time: 45 Min Total Time: 45 Min Visit Number: 8 (PT- 15% co-insurance No co-pay # visits based on medical necessity NPAR) Chief Complaint: Chronic neck pain Cervical paraspinal spasm Bilateral UE cervical radiculopathy PRECAUTIONS: As Tolerated Subjective History: 59 yo female presents per PCP Arsenio Baxter MD for cervical OA/pain. Patient reports progressive cervical pain and newer complaints of occipital tenderness, tension type headaches, and bilateral UE paresthesia including numbness/tingling in the C5-T1 UE distribution. Referral for PT evaluation and treatment per PCP Arsenio Baxter MD. Pain: Presents 2+ weeks post last PT session that was conducted on 11/11/24. Excellent response to session with overall decreased cervical and thoracic pain, spasm, and functional impairments including better sleep. Patient is highly compliant with HEP. Reports she was able to do light yard work and did well with manageable symptoms with intermittent use of over the counter NSAIDS. Pleased with progress. Overall Progress: Improving Objective: Re-Examination performed on 11/11/24-DBO Reports 75% improvement all areas with this episode of care and is please with PT intervention progress. Remains diligent and compliant with HEP. Decreased need for manual therapy and mobilization due to diligent performance of HEP. Has noted increased tolerance to ADL, Sleep, and Recreation. AROM cervical spine improving at 75 degrees rotation and 35 degrees side-bending. Also paraspinal tone is now mildly increased as compared to moderately at time of initial evaluation. Neck Index scores 28 compared to 46 at IE indicative of goo functional impairment and is consistent with PT [...] strengthening, ergonomic, and postural training to assist quality assurance manager management (10 Min-HEP attached to exercise grid) Therapeutic Activity: Functional Activity Training (PRN) Neuromuscular Re-education: Neuromuscular reeducation including muscle facilitation, ergonomic and postural training, core strengthening (15 Min) Modalities: Electrical Stimulation/moist heat seated to mid to lower cervical and upper thoracic spine IFC High/Low Sweep for inflammation and pain control (PRN); UltraSound-2 MHz 1.5 w/cm2 at mid to lower cervical spine (PRN) Goals: Short Term Goals: To be met by 10/07/24 The patient to demonstrate 50% reduction in pain to at worst 4/10 intensity with good reduction in UE/LE paresthesia symptoms in 1-2 weeks and no paresthesia in 2-4 weeks The patient to achieve functional cervical rotation at 80 degrees or better, normal upper limb neural mobility, and cervical postural and scapular strength of 4+/5 in 4-6 weeks The patient to score <20% residual functional impairment via Neck Index f/u difficulty questionnaire in 4-8 weeks The patient to demonstrate good compliance to ergonomic and postural recommendations and have prophylactic management plan in place including routine home management via flexibility and strength exercises to reduce risk of future exacerbations to be met by conclusion of PT expected in 4-8 weeks Rehab Potential: Good PT Assessment: The patient has participate in 8 outpatient PT sessions since start of care on 08/06/24 for subacute and progressive neck pain, spasm, and upper extremity paresthesia per referral of Arsenio Baxter MD. Presents 2+ weeks post last PT session that was conducted on 11/11/24. Excellent response to session with overall decreased cervical and thoracic pain, spasm, and functional impairments including better sleep. Patient is highly compliant with HEP. Reports she was able to do light yard work and did well with manageable symptoms with intermittent use of over the counter NSAIDS. Pleased with progress. Full cervical AROM and pain reduced to 0-1/10 intensity by conclusion of PT. Discussed continuation of HEP and various strategies to deal with stress. Follow-up in 2-4 weeks PRN. Follow-up tentatively set for 2-weeks with recommendation that patient cancel if doing well. Progression toward independent management of this condition. Plan: Recommend continuation of outpatient PT 1-4 times/month for up to 3 additional months per above updated PT POC (11/11/24-DBO) I hereby deem this POC medically necessary. Please sign below and fax back to the number below. Physician Signature: Date: documented in this encounter [facility] 10-07-2024 History of Present illness Narrative Physical Therapy Physical Therapy Evaluation Visit Patient Name: Anushka Perdomo Today's Date: 10/07/2024 Encounter Diagnoses Name Primary? DDD (degenerative disc disease), cervical Yes Cervical spine arthritis Time In: 5:30 pm Time out: 6:20 pm Supervised Time: 30 Min Total Time: 50 Min Visit Number: 5 (PT- 15% co-insurance No co-pay # visits based on medical necessity NPAR) Chief Complaint: Chronic neck pain Cervical paraspinal spasm Bilateral UE cervical radiculopathy PRECAUTIONS: As Tolerated Subjective History: 59 yo female presents per PCP Arsenio Baxter MD for cervical OA/pain. Patient reports progressive cervical pain and newer complaints of occipital tenderness, tension type headaches, and bilateral UE paresthesia including numbness/tingling in the C5-T1 UE distribution. Referral for PT evaluation and treatment per PCP Arsenio Baxter MD. Pain: Reports feeling dramatic improvement following 09/23/24 PT session with improvement in ROM and cervical spine and shoulders with dramatic improvement in pain/tightness. Lasted 7-10 days. Increased stress in the last week including loss of job with increased pain and cervical tightness leading to this consult with symptoms up to 7/10 intensity. Overall Progress: Improving Objective: Re-Examination performed on 09/23/24-[facility] Reports 50-60% pain reduction in neck chronicity and 75% reduction in headaches with this episode of care. Has noted increased tolerance to ADL, Sleep, and Recreation. AROM cervical spine improving at 70 degrees rotation and 35 degrees side-bending. Also paraspinal tone is now mildly increased as compared to moderately at time of initial evaluation. Neck Index scores 32 compared to 46 at IE indicative of goo functional impairment and is consistent with PT [...] strengthening, ergonomic, and postural training to assist quality assurance manager management (Independent-HEP attached to exercise grid) Therapeutic Activity: Functional Activity Training (PRN) Neuromuscular Re-education: Neuromuscular reeducation including muscle facilitation, ergonomic and postural training, core strengthening (10 Min) Modalities: Electrical Stimulation/moist heat seated to mid to lower cervical and upper thoracic spine IFC High/Low Sweep for inflammation and pain control (20 Min); UltraSound-2 MHz 1.5 w/cm2 at mid to lower cervical spine (PRN) Goals: Short Term Goals: To be met by 10/07/24 The patient to demonstrate 50% reduction in pain to at worst 4/10 intensity with good reduction in UE/LE paresthesia symptoms in 1-2 weeks and no paresthesia in 2-4 weeks The patient to achieve functional cervical rotation at 80 degrees or better, normal upper limb neural mobility, and cervical postural and scapular strength of 4+/5 in 4-6 weeks The patient to score <20% residual functional impairment via Neck Index f/u difficulty questionnaire in 4-8 weeks The patient to demonstrate good compliance to ergonomic and postural recommendations and have prophylactic management plan in place including routine home management via flexibility and strength exercises to reduce risk of future exacerbations to be met by conclusion of PT expected in 4-8 weeks Rehab Potential: Good PT Assessment: The patient has participate in 5 outpatient PT sessions since start of care on 08/06/24 for subacute and progressive neck pain, spasm, and upper extremity paresthesia per referral of Arsenio Baxter MD. Reports feeling dramatic improvement following 09/23/24 PT session with improvement in ROM and cervical spine and shoulders with dramatic improvement in pain/tightness. Lasted 7-10 days. Increased stress in the last week including loss of job with increased pain and cervical tightness leading to this consult with symptoms up to 7/10 intensity. Full AROM and pain reduced to 0-2/10 intensity by conclusion of PT. Discussed continuation of HEP and various strategies to deal with stress. Follow-up in 1-2 weeks PRN Plan: Recommend continuation of outpatient PT 1-4 times/month for up to 3 additional months per above updated PT POC (09/23/24-DBO) I hereby deem this POC medically necessary. Please sign below and fax back to the number below. Physician Signature: Date: documented in this encounter [facility] 09-11-2024 History of Present illness Narrative Physical Therapy Physical Therapy Evaluation Visit Patient Name: Anushka Perdomo Today's Date: 09/11/2024 Encounter Diagnoses Name Primary? DDD (degenerative disc disease), cervical Yes Cervical spine arthritis Time In: 5:00 pm Time out: 5:50 pm Supervised Time: 30 Min Total Time: 50 Min Visit Number: 3 (PT- 15% co-insurance No co-pay # visits based on medical necessity NPAR) Chief Complaint: Chronic neck pain Cervical paraspinal spasm Bilateral UE cervical radiculopathy PRECAUTIONS: As Tolerated Subjective History: 59 yo female presents per PCP Arsenio Baxter MD for cervical OA/pain. Patient reports progressive cervical pain and newer complaints of occipital tenderness, tension type headaches, and bilateral UE paresthesia including numbness/tingling in the C5-T1 UE distribution. Referral for PT evaluation and treatment per PCP Arsenio Baxter MD. Pain: Reports 50% reduction in chronicity of tightness, tension, and pressure in mid cervical spine with right frontal and posterior behind ear and upper right cervical spine. Compliant with HEP. Primary complaint is cervical/paraspinal stiffness. Overall Progress: Improving Objective: Examination performed on 08/06/24-DBO The patient presents with subacute and progressive cervical pain, right upper trapezius and medial scapular spasm, and moderate cervical ROM deficits. Cervical assessment demonstrates moderated forward head and rounded shoulder postural dysfunction with moderate increased thoracic kyphosis. AROM demonstrates cervical rotation 80 degrees, side-bending 40 degrees, and cervical extension reduced by 25-50%. Positive PA testing C5-T1 with moderate increased cervical paraspinal tone and elevated first ribs bilateral. Moderate reduced mobility of the Median, Radial, and Ulnar nerve distribution bilateral upper extremities. The patient's Neck Index scores 46 indicative of moderate functional impairment and is consistent with PT examination findings. Therapy Diagnosis: The patient's primary functional limitation is associated with changing and maintaining body position with regard to the cervical spine with moderate impairment via Neck Index consistent with PT examination findings. Functional Limitations: Moderate pain, intermittent bilateral UE mid cervical paresthesia, decreased ergonomic and cumulative postural positional stress knowledge/understanding, moderate scapular/UE and core strength deficits, moderate ADL, household management, work, sleep, and recreational deficits. Prior Level of Function ADLs: Independent Recreation: [...] strengthening, ergonomic, and postural training to assist assisted management (Independent-HEP attached to exercise grid) Therapeutic Activity: Functional Activity Training (PRN) Neuromuscular Re-education: Neuromuscular reeducation including muscle facilitation, ergonomic and postural training, core strengthening (10 Min) Modalities: Electrical Stimulation/moist heat seated to mid to lower cervical and upper thoracic spine IFC High/Low Sweep for inflammation and pain control (20 Min); UltraSound-2 MHz 1.5 w/cm2 at mid to lower cervical spine (PRN) Goals: Short Term Goals: To be met by 10/07/24 The patient to demonstrate 50% reduction in pain to at worst 4/10 intensity with good reduction in UE/LE paresthesia symptoms in 1-2 weeks and no paresthesia in 2-4 weeks The patient to achieve functional cervical rotation at 80 degrees or better, normal upper limb neural mobility, and cervical postural and scapular strength of 4+/5 in 4-6 weeks The patient to score <20% residual functional impairment via Neck Index f/u difficulty questionnaire in 4-8 weeks The patient to demonstrate good compliance to ergonomic and postural recommendations and have prophylactic management plan in place including routine home management via flexibility and strength exercises to reduce risk of future exacerbations to be met by conclusion of PT expected in 4-8 weeks Rehab Potential: Good PT Assessment: The patient has participate in 3outpatient PT sessions since start of care on 08/06/24 for subacute and progressive neck pain, spasm, and upper extremity paresthesia per referral of Arsenio Baxter MD. Reports 50% reduction in chronicity of tightness, tension, and pressure in mid cervical spine with right frontal and posterior behind ear and upper right cervical spine. Compliant with HEP. Primary complaint is cervical/paraspinal stiffness. Improving with pain decreased following electrical stimulation to 0-10/10 intensity. Follow-up to recheck and progress in approximately 2-weeks. Plan: Recommend outpatient PT 1-3 times/week for up to 8 weeks per above PT POC pending patient progress and medical necessity standards (08/06/24-DBO) I hereby deem this POC medically necessary. Please sign below and fax back to the number below. Physician Signature: Date: documented in this encounter [facility] 08-23-2024 History of Present illness Narrative Physical Therapy Physical Therapy Evaluation Visit Patient Name: Anushka Perdomo Today's Date: 08/23/2024 Encounter Diagnoses Name Primary? DDD (degenerative disc disease), cervical Yes Cervical spine arthritis Time In: 8:15 am Time out: 9:15 am Supervised Time: 45 Min Total Time: 60 Min Visit Number: 2 (PT- 15% co-insurance No co-pay # visits based on medical necessity NPAR) Chief Complaint: Chronic neck pain Cervical paraspinal spasm Bilateral UE cervical radiculopathy PRECAUTIONS: As Tolerated Subjective History: 59 yo female presents per PCP Arsenio Baxter MD for cervical OA/pain. Patient reports progressive cervical pain and newer complaints of occipital tenderness, tension type headaches, and bilateral UE paresthesia including numbness/tingling in the C5-T1 UE distribution. Referral for PT evaluation and treatment per PCP Arsenio Baxter MD. Pain: Reports tightness, tension, and pressure in mid cervical spine with right frontal and posterior behind ear and upper right cervical spine at 3-4/10 intensity. Presents with bath towels for assistance with thoracic towel roll stretch. Overall Progress: Improving Objective: Examination performed on 08/06/24-DBO The patient presents with subacute and progressive cervical pain, right upper trapezius and medial scapular spasm, and moderate cervical ROM deficits. Cervical assessment demonstrates moderated forward head and rounded shoulder postural dysfunction with moderate increased thoracic kyphosis. AROM demonstrates cervical rotation 80 degrees, side-bending 40 degrees, and cervical extension reduced by 25-50%. Positive PA testing C5-T1 with moderate increased cervical paraspinal tone and elevated first ribs bilateral. Moderate reduced mobility of the Median, Radial, and Ulnar nerve distribution bilateral upper extremities. The patient's Neck Index scores 46 indicative of moderate functional impairment and is consistent with PT examination findings. Therapy Diagnosis: The patient's primary functional limitation is associated with changing and maintaining body position with regard to the cervical spine with moderate impairment via Neck Index consistent with PT examination findings. Functional Limitations: Moderate pain, intermittent bilateral UE mid cervical paresthesia, decreased ergonomic and cumulative postural positional stress knowledge/understanding, moderate scapular/UE and core strength deficits, moderate ADL, household management, work, sleep, and recreational deficits. 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 (10 Min-HEP attached to exercise grid) Therapeutic Activity: Functional Activity Training (PRN) Neuromuscular Re-education: Neuromuscular reeducation including muscle facilitation, ergonomic and postural training, core strengthening (15 Min) Modalities: Electrical Stimulation/moist heat seated to mid to lower cervical and upper thoracic spine IFC High/Low Sweep for inflammation and pain control (PRN); UltraSound-2 MHz 1.5 w/cm2 at mid to lower cervical spine (PRN) Goals: Short Term Goals: To be met by 10/07/24 The patient to demonstrate 50% reduction in pain to at worst 4/10 intensity with good reduction in UE/LE paresthesia symptoms in 1-2 weeks and no paresthesia in 2-4 weeks The patient to achieve functional cervical rotation at 80 degrees or better, normal upper limb neural mobility, and cervical postural and scapular strength of 4+/5 in 4-6 weeks The patient to score <20% residual functional impairment via Neck Index f/u difficulty questionnaire in 4-8 weeks The patient to demonstrate good compliance to ergonomic and postural recommendations and have prophylactic management plan in place including routine home management via flexibility and strength exercises to reduce risk of future exacerbations to be met by conclusion of PT expected in 4-8 weeks Rehab Potential: Good PT Assessment: The patient has participate in 2 outpatient PT sessions since start of care on 08/06/24 for subacute and progressive neck pain, spasm, and upper extremity paresthesia per referral of Arsenio Baxter MD. Reports tightness, tension, and pressure in mid cervical spine with right frontal and posterior behind ear and upper right cervical spine at 3-4/10 intensity. Presents with bath towels for assistance with thoracic towel roll stretch. Demonstrates significant tightness cervical paraspinal, upper trapezius, and thoracic outlet. Extensive manual therapy and mobilization with fair improvement in tightness pattern. Discussed various relaxation strategies to assist with tone reduction and patient is encouraged segmental relaxation techniques to better improve excessive cervical and thoracic tone in addition to HEP. Pain decreased following electrical stimulation to 0-10/10 intensity. Plan: Recommend outpatient PT 1-3 times/week for up to 8 weeks per above PT POC pending patient progress and medical necessity standards (08/06/24-DBO) I hereby deem this POC medically necessary. Please sign below and fax back to the number below. Physician Signature: Date: documented in this encounter [facility] 07-31-2024 History of Present illness Narrative Images from the original note were not included. Patient ID: Anushka Perdomo is a 59 y.o. female who presents for: Pt is here today as a follow up to her knee pain which she was seen for on Monday. XR films were taken and had advised her that if she wanted to pursue a knee injection she should schedule an appointment. She does wish to get a knee injection today. Objective Knee exam is essentially unchanged from previous. 1. Chronic pain of left knee (Primary) Prior to the arthrocentesis, we confirmed with the patient which knee(s) the procedure was to be performed on. Verbal informed consent was obtained, the risks include; bleeding/bruising, infection, dimpling of the skin, post injection pain or nerve damage, and the possibility of no improvement to the patient's complaints. The arthrocentesis to the left knee joint was done with the patient in a seated position. The skin was prepped with alcohol until clear and then betadine to dry. A 25-guage, 1 1/2-inch needle was inserted into the space between the tibial plateau and the patella. Once within the knee joint, I injected a solution containing 80 mg of Depo-Medrol (1cc). The needle was removed and a dressing was applied. The patient tolerated the procedure well. The patient has been instructed in post-procedure care. - methylPREDNISolone acetate (DEPO-Medrol) injection 80 mg 2. Arthritis of left knee She does have the nabumetone which she said has helped. I have discussed with her that I want her to domo on her calendar and take this for 2 weeks regularly even if the knee feels better to help prevent a rebound in her pain and inflammation. - methylPREDNISolone acetate (DEPO-Medrol) injection 80 mg documented in this encounter [facility] 07-29-2024 History of Present illness Narrative Images from the original note were not included. Patient ID: Anushka Perdomo is a 59 y.o. female who presents for: Chronic Pain: Pt is here for follow-up of chronic pain related to knees, joints in the hand lower back. 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 Pain is usually 6/10, described as aching, numbing, and tingling and occurs continuously and has days where it gets worse . The average duration of each episode is 2 days. Tingling in the right arm and the right and left hand. She has no formal dx of carpal tunnel Left knee and popliteal pain Left dorsal foot pain It is difficult to pin her down to exactly with the tingling is. She does ultimately seem to think that it is the 3rd and 4th finger of both hands. No Actual weakness but a perception of weakness, no dropping. No history of specific cervical spine injury that the patient remembers. Review of Systems Constitutional: Negative for chills and fever. Respiratory: Negative for cough, shortness of breath and wheezing. Cardiovascular: Negative for chest pain and palpitations. Gastrointestinal: Negative for abdominal pain. Genitourinary: Negative for frequency and urgency. Objective The patient is pleasant and in no acute distress The patient has good eye contact and clear speech The paracervical musculature is hypertonic, right greater than left, nontender to palpation. The spinous processes are nontender to palpation. She does certainly have a thoracic kyphosis which is causing forward head protrusion in over rounded shoulders. He has mild decreased range of motion in all directions without any specific complaints. Sensation is grossly intact of the arms. 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 Biceps triceps strength is good in all are symmetrical. 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 This is right on the right lateral. I discussed with her that I did not have time for full evaluation of this today as we have already extended visit from knee to knee in cervical. It is slightly visible there is no rubor or calor. It is proximally 2-1/2-3 cm x 4 cm. It was nontender to brief palpation. Her left the does have some diffuse edema around the patella compared to her right. There is no bruising, erythema, calor. MCL and LCL testing are unremarkable. Joint line palpation and grind test are negative. Distal patellar tendon is nontender. There is some mild crepitus with range of motion and some discomfort her. The hamstring tendons are nontender. There are no specific masses noted in the popliteal or upper calf regions. There is no tenderness here. Brief examination of the left foot did not demonstrate any swelling, bruising, rubor or calor. She has slightly diminished but adequate range of motion of the ankle joint. Fifth metatarsal head is nontender. The lateral malleoli are nontender. Compression of the forefoot is nontender. The foot itself is warm with good capillary refill. Visit Vitals Ht 5' 6 Wt 161 lb BMI 25.99 kg/m OB Status Postmenopausal Smoking Status Never BSA 1.84 m Allergies Allergen Reactions Nifedipine Other Reaction(s): rash Penicillin V Other Reaction(s): Unknown Sulfa Antibiotics Rash Current Outpatient Medications on File Prior to Visit Medication Sig Dispense Refill FLUoxetine (PROzac) 20 MG capsule Take 20 mg by mouth Daily valsartan (Diovan) 160 MG tablet Take 160 mg by mouth in the morning. [DISCONTINUED] doxycycline (Monodox) 50 MG capsule Take 1 capsule, by mouth, once daily. 7 days 7 capsule 0 [DISCONTINUED] DULoxetine (Cymbalta) [address] capsule Take 1 capsule (20 mg) by mouth Daily (Patient not taking: Reported on 02/27/2024) 90 capsule 1 No current facility-administered medications on file prior to visit. 1. Chronic pain of left knee (Primary) I did discuss with her that there were way too many things to truly evaluate everything in 1 office visit today. Having said that, she does seem to have arthritic complaints in multiple areas of her body. She has not been previously evaluated for this. We will start with an arthritis profile from a laboratory standpoint. Especially since there was some trauma where she fell while she was out running and ended up having to limp back home almost 1 mi and this was months ago and she continues to have pain, I believe she needs x-ray. In the meantime to give her some pain and start treating any inflammation we will start nabumetone. - Sedimentation rate, automated; Future - Uric acid; Future - DANILO; Future - Rheumatoid factor; Future - Sedimentation rate, automated - Uric acid - DANILO - Rheumatoid factor - XR knee 3 views left; Future - nabumetone (Relafen) 750 MG tablet; Take 1 tablet (750 mg) by mouth in the morning and 1 tablet (750 mg) before bedtime. Dispense: 60 tablet; Refill: 0 2. Left foot pain Similar to above but the patient declines an x-ray. - Sedimentation rate, automated; Future - Uric acid; Future - DANILO; Future - Rheumatoid factor; Future - Sedimentation rate, automated - Uric acid - DANILO - Rheumatoid factor - nabumetone (Relafen) 750 MG tablet; Take 1 tablet (750 mg) by mouth in the morning and 1 tablet (750 mg) before bedtime. Dispense: 60 tablet; Refill: 0 3. Fall, initial encounter - XR knee 3 views left; Future - XR CERVICAL SPINE AP/LAT/FLEX/EXT; Future 4. Paresthesia of upper extremity Since this also started up about the time of the fall and has slowly and progressively been worsening and there is some vagueness about whether she actually hurt her neck and head on a fall we will go ahead and do some imaging. - Sedimentation rate, automated; Future - Uric acid; Future - DANILO; Future - Rheumatoid factor; Future - Sedimentation rate, automated - Uric acid - DANILO - Rheumatoid factor - XR CERVICAL SPINE AP/LAT/FLEX/EXT; Future 5. Screening mammogram for breast cancer She is behind on her screening mammogram. She is also now telling me that she has a fullness up underneath her right shoulder above the area where there is a lump on her. We are again at a point where there is too much for 1 office visit today. However I am going to go ahead and order the screening mammogram and ultimately we will proceed from there with the right upper extremity evaluation at a later date. - Bilateral screening mammogram with tomosynthesis; Future 6. Mass of soft tissue of right upper extremity As above documented in this encounter [facility] 03-07-2024 History of Present illness Narrative Subjective Anushka Perdomo is a 58 y.o. female Chief Complaint Follow-up HPI Patient is in the office for annual follow-up for hypertension. Since her last visit she has had no events whatsoever. She is taking the valsartan and has no side effects. She is planning on losing more weight and lifestyle changes in that regard was recommended. She is advised to get annual wellness blood work which she is agreeable to. Examination today was only remarkable for borderline overweight. Assessment/recommendations: 1-essential hypertension, currently in excellent control on valsartan which has been well-tolerated, basic metabolic profile is ordered. 2-minimal overweight, the patient wishes to lose more weight with diet and exercise and target a weight 150 pounds. 3-family history of premature CAD, the patient was evaluated previously noninvasively and her workup was negative. Active lifestyle was encouraged Review of Systems All other systems reviewed and are negative. Vitals: 03/07/24 0832 BP: 120/84 BP Location: Left arm Patient Position: Sitting Pulse: 62 Weight: 72.8 kg (160 lb 6.4 oz) Height: 1.676 m (5' 6 ) Objective [...] Sulfa (sulfonamide antibiotics) Current Medications Current Outpatient Medications: doxycycline (Monodox) 50 mg capsule, Take 1 capsule (50 mg) by mouth once daily. Take with at least 8 ounces (large glass) of water, do not lie down for 30 minutes after, Disp: , Rfl: FLUoxetine (PROzac) 20 mg capsule, Take 1 capsule (20 mg) by mouth once daily., Disp: , Rfl: valsartan (Diovan) 160 mg tablet, Take 1 tablet (160 mg) by mouth once daily., Disp: 90 tablet, Rfl: 3 Assessment/Plan 1. Essential hypertension Follow Up In Cardiology Alanine Aminotransferase Aspartate Aminotransferase Basic Metabolic Panel CBC valsartan (Diovan) 160 mg tablet Thyroid Stimulating Hormone Alanine Aminotransferase Aspartate Aminotransferase Basic Metabolic Panel CBC Thyroid Stimulating Hormone 2. BMI 25.0-25.9,adult 3. Screening for hyperlipidemia Lipid Panel Lipid Panel Scribe Attestation By signing my name below, I, Kristyn Vázquez LPN , [place] attest that this documentation has been prepared under the direction and in the presence of Ernie Mcpherson MD. Provider Attestation - Scribe documentation All medical record entries made by the Scribe were at my direction and personally dictated by me. I have reviewed the chart and agree that the record accurately reflects my personal performance of the history, physical exam, discussion and plan. documented in this encounter [facility] Work Phone: 03-07-2024 Instructions Kristyn Brice LPN - 03/07/2024 8:30 AM EDT Please bring all medicines, vitamins, and herbal supplements with you when you come to the office. Prescriptions will not be filled unless you are compliant with your follow up appointments or have a follow up appointment scheduled as per instruction of your physician. Refills should be requested at the time of your visit. BMI was above normal measurement. Current weight: 72.8 kg (160 lb 6.4 oz) Weight change since last visit (-) denotes wt loss -0.6 lbs Weight loss needed to achieve BMI 25: 5.8 Lbs Weight loss needed to achieve BMI 30: -25.1 Lbs Provided instructions on dietary changes Provided instructions on exercise. The following attachments cannot be sent through Care Everywhere.Heart Healthy Diet (Indonesian)documented in this encounter [facility] Work Phone: 02-27-2024 History of Present illness Narrative Images from the original note were not included. Follow up Diagnosis: Rosacea Location: face Last visit: 2020 Symptoms: redness, bumps Status: improved since restarting minocycline. Previously prescribed minocycline 50 mg every day by Dr. Hall which she took prn flares Current treatment: minocycline 100 mg every day- PCP refilled at this dose Lesions: Location: lower legs, right arm, back Duration: months Quality: itchy Modifying factors: aggravated by picking Associated symptoms: rough Treatments: none Previous patient of Simba Hall MD All pertinent medical history, medications, and allergies were reviewed. General Exam: alert , oriented to person, place, and time , normal affect, well appearing Unaccompanied A focused exam completed based on patient reported problems, see below: 1. Other rosacea Head - Anterior (Face) Mid face erythema with telangiectasias. Stable The patient was informed that rosacea a chronic condition that can be controlled but not cured. The appearance of redness and pimples can often be improved with a low dose antibiotic or topical medications. Discontinue minocycline. Start doxycycline 50 mg every day, may take prn for flares only if desires. Doxycyline handout was given. Recommend patient take medication with food but not dairy, sit up for 30 min after taking medication, wear sunscreen as this medication increases sun sensitivity, and discontinue medication and notify clinic if new headaches/vision changes or other side effects occur. doxycycline (Monodox) 50 MG capsule - Head - Anterior (Face) Take 1 capsule, by mouth, once daily, 30 days 2. Seborrheic keratosis Left Ankle - Posterior Stuck on verrucous, conley-brown papules and plaques. Patient was counseled regarding these benign growths. Removal is normally not necessary, but they may be removed if they are symptomatic or for cosmetic reasons. 3. Neoplasm of unspecified behavior of bone, soft tissue, and skin Right Upper Back Irregularly pigmented papule Lesion biopsy Type of biopsy: tangential Informed consent: discussed and consent obtained Informed consent comment: The risks and benefits of the biopsy were discussed. Risks include but are not limited to bleeding, infection, scarring, pain, and nerve damage. An opportunity to ask questions prior to the procedure was permitted and all questions were answered. Patient was prepped and draped in usual sterile fashion: area cleansed with alcohol. Anesthesia: the lesion was anesthetized in a standard fashion Anesthetic: 1% lidocaine w/ epinephrine 1-100,000 buffered w/ 8.4% NaHCO3 Instrument used: DermaBlade Hemostasis achieved with: electrodesiccation Outcome: patient tolerated procedure well Outcome comment: The specimen was placed in a prelabeled formalin container to be sent for pathology Post-procedure details: sterile dressing applied and wound care instructions given Post-procedure details comment: Emphasized need to contact clinic for any signs of infection, uncontrollable bleeding, or complications. Dressing type: bandage Additional details: Photo taken Amount of lidocaine used: 0.5 cc Specimen A - Dermatopathology exam Differential Diagnosis: atypical mole vs melanoma Check Margins: No Size of lesion: 0.7 x 0.7 cm Next Visit: 1 year documented in this encounter [facility] Chief complaint Narrative - Reported ANUSHKA PERDOMO is being seen for a consultation for heart murmur, fluid retention, sob.57-year-old white female who was self-referred for evaluation of symptoms of generalized fatigue and exercise intolerance with dyspnea on exertion and palpitations. 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 She tells [...] premature CAD, she is non-smoker, she drinks socially.Assessment/recommendatio ns:1 Constellation of nonspecific symptoms of fatigue and [...] exercise and target a weight 150 pounds. [facility] [address] DO Work Phone: Evaluation note No assessment inform ation available [facility] Work Phone: Evaluation note Diagnosis Essential hypertension Unspecified essential hypertension BMI 25.0-25.9,adult Screening for hyperlipidemia Screening for lipoid disorders documented in this encounter [facility] Work Phone: Evaluation note* Diagnosis Other rosacea- Primary Seborrheic keratosis Neoplasm of unspecified behavior of bone, soft tissue, and skin Recurrent major depressive disorder, in partial remission (HCC) (CMS/HCC) [facility] Diagnosis Chronic pain of left knee- Primary Left foot pain Pain in soft tissues of limb Fall, initial encounter Paresthesia of upper extremity Screening mammogram for breast cancer Mass of soft tissue of right upper extremity [facility] Diagnosis Chronic pain of left knee- Primary Arthritis of left knee [facility]* Diagnosis DDD (degenerative disc disease), cervical- Primary Degeneration of cervical intervertebral disc Cervical spine arthritis Cervical spondylosis without myelopathy [facility]* Diagnosis DDD (degenerative disc disease), cervical- Primary Degeneration of cervical intervertebral disc Cervical spine arthritis Cervical spondylosis without myelopathy [facility]* Diagnosis DDD (degenerative disc disease), cervical- Primary Degeneration of cervical intervertebral disc Cervical spine arthritis Cervical spondylosis without myelopathy [facility]* Diagnosis DDD (degenerative disc disease), cervical- Primary Degeneration of cervical intervertebral disc Cervical spine arthritis Cervical spondylosis without myelopathy [facility]* Diagnosis DDD (degenerative disc disease), cervical- Primary Degeneration of cervical intervertebral disc Cervical spine arthritis Cervical spondylosis without myelopathy [facility]* Diagnosis DDD (degenerative disc disease), cervical- Primary Degeneration of cervical intervertebral disc Cervical spine arthritis Cervical spondylosis without myelopathy [facility]* Diagnosis DDD (degenerative disc disease), cervical- Primary Degeneration of cervical intervertebral disc Cervical spine arthritis Cervical spondylosis without myelopathy [facility]* Diagnosis Essential hypertension- Primary Unspecified essential hypertension Palpitations Vitamin D deficiency Screening for lipid disorders Family history of heart disease BMI 26.0-26.9,adult Never smoked tobacco Overweight Nonspecific abdominal pain documented in this encounter [facility] Work Phone: Hospital Discharge instructions Additional Instructions DISCHARGE INSTRUCTIONS [...] time surgery, leave in place until your post- operative appointment. -Keep your incision dry for 48 hours then, you may shower (no tub baths) and allow water to flow over your incision. -It is common to feel pulling or sharp sticking sensations in the area of the incision. PLEASE NOTIFY OUR OFFICE at [phone] if you: -Develop a fever of 101 [...] rate. FOLLOW UP -Call the office at [phone] for a follow up appointment 1 week. * AFTER HOURS PHONE NUMBER [phone] *[facility] Work Phone: Reason for referral (narrative)* Consultation (Routine) - Authorized Specialty Diagnoses / Procedures Referred By Contac t Referred To Contact Cardiology Diagnoses Essential hypertension Procedures Follow Up In Cardiology Ernie Mcpherson MD [address] [place] [address] 2, [address] [address] Ernie Mcpherson MD [address] [place] [address] 2, [address] [address] Referral ID Status Reason Start Date Expiration Date V isits Requested Visits Authorized [id number] Authorized 03/07/2024 03/07/2025 1 1 [facility] Work Phone: Rewpze for visit Narrative* Rehabilitation - Outpatient (Routine) - Authorized Specialty Diagnoses / Procedures Referred By Contac t Referred To Contact Physical Therapy Diagnoses DDD (degenerative disc disease), cervical Cervical spine arthritis Procedures [place] OFFICE/OUTPATIENT [facility] [place] [place] 60 MINUTES Arsenio Baxter MD [address] [place] [id number] Phone: tel: fax: Sabas Deutsch, PT [address] [place] [address] Phone: tel: fax: Referral ID Status Reason Start Date Expiration Date Visits Requested Visits Authorized [id number] Authorized Consult and Treat 07/30/2024 01/26/2025 99 99 [facility]* Rehabilitation - Outpatient (Routine) - Authorized Specialty Diagnoses / Procedures Referred By Contac t Referred To Contact Physical Therapy Diagnoses DDD (degenerative disc disease), cervical Cervical spine arthritis Procedures [place] OFFICE/OUTPATIENT [facility] 60 MINUTES Arsenio Baxter MD [address] [facility] [address] [place] [address] Phone: tel: fax: Sabas Deutsch, PT [address] [place] [address] Phone: tel: fax: Referral ID Status Reason Start Date Expiration Date Visits Requested Visits Authorized [id number] Authorized Consult and Treat 07/30/2024 07/09/2025 99 99 [facility] N[facility]* Rehabilitation - Outpatient (Routine) - Authorized Specialty Diagnoses / Procedures Referred By Contac t Referred To Contact Physical Therapy Diagnoses DDD (degenerative disc disease), cervical Cervical spine arthritis Procedures [place] OFFICE/OUTPATIENT [facility] 60 MINUTES Arsenio Baxter MD [address] [facility] [address] [place] [address] Phone: tel: fax:[phone] Sabas Deutsch, PT [address] [place] [address] Phone: tel: fax: Referral ID Status Reason Start Date Expiration Date Visits Requested Visits Authorized [id number] Authorized Consult and Treat 07/30/2024 07/09/2025 99 40 [facility] Chief Complaint and Reason for Visit Chief Complaint M79.672 Cosmetic Cosmetic Cosmetic Chief Complaint Cosmetic Chief Complaint Cosmetic Cosmetic Cosmetic Chief Complaint Admit Date R20.2 M25.562 G89.29 July 29, 2024 2:19pm Family History No Family History Records Found [...] of hyperlipid emia: Mother, Sibling(V18.19, Z83.438) Status:Active Relationship Condition Age at Onset Recorded Date/T nahed mother Aortic valve stenosis Unknown father Myocardial infarction Unknown Advance Directives No Advanced Directives Records Found Advance Directive Response Recorded Date/ Time Advance Directives No February 08 10:14am Advance Directive Response Recorded Date/ Time Advance Directives No February 08 9:14am Documents on File Type Date Recorded 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 Advance Directives and Living Will 02/14/2022 2021-10-15 Power Of Wardrobe Assistant Documents on File Type Date Recorded 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 anation Advance Directives and Living Will 02/14/2022 2021-10-15 Power Of Wardrobe Assistant Summary Purpose Chief Complaint * ANUSHKA PERDOMO [...] (unrecognized sec tion and content) Team Status: Active Member Role Status Dates Edward J Hemeyer , MD Primary Care Provider Active Team Status: Inactive Member Role Status Dates Arsenio Baxter MD Primary Care Provi jeremias, Attending Provider Active Start: July 29, 2024 End: July 29, 2024 Team Status: Inactive Member Role Status Dates Arsenio Baxter MD Primary Care Provider Active Chu Wallis MD Attending Provider Active Team Status: Inactive Member Role Status Dates Arsenio Baxter MD Primary Care Provider Active Amor De Los Santos DPM MS Attending Provider Active Military Professional Relationship Specialty Start Date End Date Arsenio Baxter MD [address] [place] [address] (Fax) PCP - General Family Medicine 11/15/22 Military Professional Relationship Specialty Start Date End Date Arsenio Baxter MD [address] [id number] PCP - General 10/04/22 Military Professional Relationship Specialty Start Date End Date Arsenio Baxter MD [address] [place] [address] (Fax) PCP - General Family Medicine 11/15/22 Military Professional Relationship Specialty Start Date End Date Arsenio Baxter MD [address] [place], [place] [phone] (Fax) PCP - General Family Medicine 11/15/22 Military Professional Relationship Specialty Start Date End Date Arsenio Baxter MD [address] [place] [address] (Fax) PCP - General Family Medicine 11/15/22 Military Professional Relationship Specialty Start Date End Date Arsenio Baxter MD [address] [place] [address] (Fax) PCP - General Family Medicine 11/15/22 Military Professional Relationship Specialty Start Date End Date Arsenio Baxter MD [address] [place] [address] (Fax) PCP - General Family Medicine 11/15/22 Military Professional Relationship Specialty Start Date End Date Arsenio Baxter MD [address] [place] [address] (Fax) PCP - General Family Medicine 11/15/22 Military Professional Relationship Specialty Start Date End Date Arsenio Baxter MD [address] [place] [address] (Fax) PCP - General Family Medicine 11/15/22 Military Professional Relationship Specialty Start Date End Date Arsenio Baxter MD [address] [place] [address] (Fax) PCP - General Family Medicine 11/15/22 Military Professional Relationship Specialty Start Date End Date Arsenio Baxter MD [address] [place] [address] (Fax) PCP - General Family Medicine 11/15/22 Military Professional Relationship Specialty Start Date End Date Arsenio Baxter MD [address] [place] [address] (Fax) PCP - General Family Medicine 11/15/22 Military Professional Relationship Specialty Start Date End Date Arsenio Baxter MD [address] [place] [address] (Fax) PCP - General Family Medicine 11/15/22 Military Professional Relationship Specialty Start Date End Date Arsenio Baxter MD [address] [place] [address] (Fax) PCP - General Family Medicine 11/15/22 Military Professional Relationship Specialty Start Date End Date Arsenio Baxter MD [address] [place] [address] (Fax) PCP - General Family Medicine 11/15/22 Military Professional Relationship Specialty Start Date End Date Arsenio Baxter MD [address] [place] [address] (Fax) PCP - General Family Medicine 11/15/22 Military Professional Relationship Specialty Start Date End Date Arsenio Baxter MD [address] [place] [address] (Fax) PCP - General Family Medicine 11/15/22 Military Professional Relationship Specialty Start Date End Date Arsenio Baxter MD [address] [place] [address] (Fax) PCP - General Family Medicine 11/15/22 Military Professional Relationship Specialty Start Date End Date Arsenio Baxter MD [address] [place] [address] (Fax) PCP - General Family Medicine 11/15/22 Military Professional Relationship Specialty Start Date End Date Arsenio Baxter MD [facility] [address] [place] [phone] PCP - General 10/04/22 Military Professional Relationship Specialty Start Date End Date Arsenio Baxter MD [address] [place] [address] (Fax) PCP - General Family Medicine 11/15/22 Goals (unrecognized section and content) Goals may be documented in a n alternate sectionGoals may be documented in an alternate section INFORMATION SOURCE (unrecogn ized section and content) DATE CREATED AUTHOR 11/12/2022 [facility] DATE CREATED AUTHOR AUTHOR'S ORGANIZ ATION 01/22/2023 [facility] DATE CREATED AUTHOR AUTHOR'S ORGANIZ ATION 02/07/2023 [facility] DATE CREATED AUTHOR AUTHOR'S ORGANIZ ATION 02/07/2023 [employer] DATE CREATED AUTHOR AUTHOR'S ORGANIZ ATION 01/24/2024 [facility] DATE CREATED AUTHOR AUTHOR'S ORGANIZ ATION 03/13/2024 [facility] DATE CREATED AUTHOR AUTHOR'S ORGANIZ ATION 03/19/2024 [facility] DATE CREATED AUTHOR AUTHOR'S ORGANIZ ATION 08/11/2024 [facility] DATE CREATED AUTHOR AUTHOR'S ORGANIZ ATION 10/11/2024 [facility] DATE CREATED AUTHOR AUTHOR'S ORGANIZ ATION 10/18/2024 [facility] DATE CREATED AUTHOR AUTHOR'S ORGANIZ ATION 12/28/2024 [facility] DATE CREATED AUTHOR AUTHOR'S ORGANIZ ATION 03/19/2025 [facility] DATE CREATED AUTHOR AUTHOR'S ORGANIZ ATION 03/20/2025 [facility] EPIC Reason for Visit (unrecogniz ed section and content) Reason Comments Follow-up 1yr Reason Comments Follow-up Suspicious Skin Lesion Reason Comments Knee Pain Reason Comments Procedure Reason Comments Follow-up 1 year Essential hyp ertension Specialty Diagnoses / Procedures Referred By Arelis willis Referred To Contact Cardiology Diagnoses Essential hypertension Procedures Follow Up In Cardiology Ernie Mcpherson MD [address] [facility] [address], [address] [address] Phone: tel: fax: Ernie Mcpherson MD [facility] [facility] [address], [address] [address] Phone: tel: fax: Referral ID Status Reason Start Date Expiration Date V isits Requested Visits Authorized [id number] Authorized 03/07/2024 03/07/2025 1 1 FOR RECORDS PERTAINING TO PATIENTS WHO ARE [...] BE BASED ON THE PRIMARY CLINICAL RECORDS. [facility] [employer] [facility]. provides no warranty or guarantee of the accuracy or completeness of information in this document.
[2025-03-21 08:35] LABS: Hematocrit 40.9 % (36.0-48.0); Hemoglobin 13.7 g/dL (12.0-16.0); Immature Granulocytes Abs Auto 0.01 10^3/uL (0.00-0.03); Immature Granulocytes Pct Auto 0.2 % (0.0-0.5); Lymphocytes Absolute Auto 2.4 10^3/uL (1.2-3.8); Mean Corpuscular HGB Conc 33.5 g/dL (29.9-35.2); Mean Corpuscular Hemoglobin 30.2 pg (26.7-34.0); Mean Corpuscular Volume 90.1 fL (81.0-99.0); Platelet Count 387 10^3/uL (150-450); Red Blood Count 4.54 10^6/uL (4.20-5.40); White Blood Count 6.5 10^3/uL (4.0-11.0)
[2025-03-21 10:53] LABS: Alanine Aminotransferase 24 U/L (14-59); Anion Gap 11.8; Aspartate Amino Transferase 10 U/L (15-37); Blood Urea Nitrogen 15.0 mg/dL (7.0-18.0); Calcium 9.2 mg/dL (8.5-10.1); Carbon Dioxide 28.7 mmol/L (21.0-32.0); Chloride 106 mmol/L (98-107); Cholesterol 242 mg/dL (<=200); Estimated GFR (African America >60 (>=60 mL/min/1.73m^2); Estimated GFR (Non-African Ame >60 (>=60 mL/min/1.73m^2); Glucose 101 mg/dL (74-106); HDL Cholesterol 103 mg/dL (40-60); Potassium 4.5 mmol/L (3.5-5.1); Sodium 142 mmol/L (136-145); Thyroid Stimulating Hormone 0.934 uIU/mL (0.358-3.740); Triglycerides 118 mg/dL (<=150); VLDL CHOLESTEROL 23.6 mg/dL
== END 2025-03-21 08:11 | disposition home or self-care (01) ==
LOC: LAB 08:11
PROVIDERS: PCP Family Medicine; Visit Provider Internal Medicine Cardiovascular Disease
DX: R00.2 Palpitations (principal); Z13.220 Encounter for screening for lipoid disorders; I10 Essential (primary) hypertension; E55.9 Vitamin D deficiency, unspecified
CPT/HCPCS: 36415; 80048; 80061; 82306; 84443; 84450; 84460; 85025